=== PATIENT | female | born 1970 | race Caucasian/White ===

== ENCOUNTER → 2016-08-12 | Outpatient (CLI) | payer OTHER ==
[~2016-08-12] MED LIST: ALPR0.25 PO; CARI250T PO; CEPH500C PO; FNTTP50 TD; NRN/600 PO; OXYC-106 PO; PROM25TA PO; ZOLP10TA PO
[2016-08-12 12:49] LABS: ALT/SGPT 19 U/L (12-78); BLOOD UREA NITROGEN 12 mg/dl (7-18); BUN/CREATININE RATIO 12.9 (10-20); CALCIUM 8.7 mg/dl (8.5-10.1); CARBON DIOXIDE 20 mmol/L (21-32); CHLORIDE 110 mmol/L (98-107); GLUCOSE 99 mg/dl (70-99); POTASSIUM 3.9 mmol/L (3.5-5.1); SODIUM 141 mmol/L (136-145)
[2016-08-12 13:03] LABS: ALB/GLOB RATIO 1.3 (0.9-2); ALKALINE PHOSPHATASE 91 U/L (45-117); AST/SGOT 14 U/L (15-37); THYROID STIMULATING HORMONE 0.618 uIu/ml (0.300-4.500)
== END | disposition home or self-care (01) ==
LOC: C.LABPVFM 10:02
PROVIDERS: ATTEND Nurse Practitioner
DX: F41.9 Anxiety disorder, unspecified (principal)

== ENCOUNTER → 2016-12-23 | Outpatient (CLI) | payer OTHER ==
[~2016-12-23] MED LIST changes: +BUSP1TAB46 PO; -CEPH500C PO; +CTP/1 PO; +DRGTP12 TD; +ESCI1TAB9 PO; +FENT25DI10 TD; +GABA-113 PO; +MEPE1TAB PO; +PROM25TA9 PO; +TOPI50TA16 PO
--- NOTE | 2016-12-23 15:23 | DIAGNOSTIC IMAGING REPORT ---
RIGHT PELVIS/UNILATERAL HIP 2-3VIEWS CLINICAL HISTORY: RIGHT HIP PAIN Right pain COMPARISON: None. DISCUSSION: Moderate degenerative change of the right and to lesser extent left hip. No evidence for acetabular protrusion. No abnormal soft tissue calcifications. Mild degenerative sclerosis of the sacroiliac joints. Sacral foramina are symmetric. There is no evidence for soft tissue swelling. IMPRESSION: Moderate degenerative change of the right and to lesser extent left hip. No acute process. Electronically signed by: Ashwin Steve M.D. 12/23/2016 3:21 PM Dictated Date/Time: 12/23/2016 3:21 PM
== END | disposition home or self-care (01) ==
LOC: C.RADPV 14:48
PROVIDERS: ATTEND Nurse Practitioner
DX: M25.551 Pain in right hip (principal)

== ENCOUNTER 2017-04-14 08:26 | Emergency (ER) | payer OTHER ==
[~2017-04-14] VITALS: Ht 168.9 cm; Wt 99.5 kg
[~2017-04-14 08:26] MED LIST changes: -BUSP1TAB46 PO; -CTP/1 PO; -DRGTP12 TD; -ESCI1TAB9 PO; -FENT25DI10 TD; -GABA-113 PO; -MEPE1TAB PO; -PROM25TA9 PO; -TOPI50TA16 PO
[2017-04-14 08:28] VITALS: TEMP 36.4; Ht 168.9 cm; Wt 99.5 kg
[2017-04-14] MEDS ORDERED: DiphenhydrAMINE HCL 50 MG/ML VIAL IV STA (09:02)
[2017-04-14] MEDS ORDERED: DEXAMETHASONE SOD INJ 4 MG/ML VIAL IV STA (09:02)
[2017-04-14] MEDS: METOCLOPRAMIDE HCL INJ 5 MG/ML 2 ML VIAL IV STA ×2 (09:02→09:19)
[2017-04-14] MEDS ORDERED: SODIUM CHLORIDE 0.9% 1000ML 1,000 ML IV STA (09:02)
[2017-04-14] MEDS ORDERED: KETOROLAC TROMETHAMINE 30 MG/ML VIAL IV STA (09:02)
[2017-04-14] MEDS ORDERED: PROMETHAZINE HCL INJ 25 MG in SODIUM CHLORIDE 0.9% 50ML 50 ML IV STA (09:28)
[2017-04-14] MEDS ORDERED: MoRPHine SULFATE 10 MG/ML CARP/VIAL IV STA ×2 (09:56→10:44)
[2017-04-14] MEDS ORDERED: PROM25TA9 PO (10:30)
[2017-04-14] MEDS ORDERED: FENT25DI10 TD (10:30)
[2017-04-14] MEDS ORDERED: GABA-113 PO (10:30)
[2017-04-14] MEDS ORDERED: DRGTP12 TD (10:30)
[2017-04-14] MEDS ORDERED: TOPI50TA16 PO (10:33)
[2017-04-14] MEDS ORDERED: MEPE1TAB PO (10:33)
[2017-04-14] MEDS ORDERED: BUSP1TAB46 PO (10:33)
[2017-04-14] MEDS ORDERED: CTP/1 PO (10:33)
[2017-04-14] MEDS ORDERED: ESCI1TAB9 PO (10:33)
[2017-04-14 11:32] VITALS: BP 112/83; PULSE 67; O2SAT 98
--- NOTE | 2017-04-15 05:47 | EMERGENCY ROOM VISIT NOTE ---
ED Visit Note First contact with patient: 08:44 CHIEF COMPLAINT: I've had a migraine headache for 3 days. HISTORY OF PRESENT ILLNESS: Ms. Norris is a 46 year-old white female who ambulates into the ED accompanied by a female friend complaining of a migraine headache. She reports a gradual onset of a severe migraine headache that started 3 days ago. The pain is constant and it is slowly increasing in severity. This is not the worst headache of the life and is similar to previous migraines. Currently she describes the headache as a throbbing and pressure sensation that started behind the left eye and has gradually moved to throughout her entire head. She rates the pain a 10/10. The pain is nonradiating. She has not identified any aggravating or alleviating factors related to the pain. She reports she has been taking her prescribed Demerol, Percocet and Phenergan without relief of her discomfort. There is been associated light sensitivity, nausea and vomiting. She denies fever, chills, sweats, skin eruptions, skin color changes, recent direct or repetitive trauma to the head, dental trauma/ surgery, upper respiratory tract symptoms, sinus congestion, sore throats, neck pain/stiffness, chest pain, shortness of breath, abdominal pain, extremity weakness/numbness/tingling, visual changes, hearing changes, difficult speaking , difficulty swallowing, difficulty ambulating/coordinating body movements. REVIEW OF SYSTEMS: As noted above in History of Present Illness; all body systems were reviewed with the patient and found to be negative unless noted above otherwise. PAST MEDICAL HISTORY: As previously noted, hypertension, status post hemorrhoidectomy, breast reduction and Achilles tendon repair, anxiety. CURRENT MEDICATIONS: Medications Dose Route/Sig Max Daily Dose Days Date Category Dose Instructions Demerol (Meperidine HCl) 50 Mg Tab 50 Mg PO UD PRN 04/14/17 Reported Topamax (Topiramate) 50 Mg Tab 50 Mg PO DAILY 04/14/17 Reported Catapres (Clonidine Hcl) 0.1 Mg Tab 0.1 Mg PO TID 04/14/17 Reported Buspirone Hcl 7.5 Mg Tab 30 Mg PO DAILY 04/14/17 Reported Lexapro (Escitalopram Oxalate) 10 Mg Tab 10 Mg PO DAILY 04/14/17 Reported Phenergan (Promethazine HCl) 25 Mg Tab 25 Mg PO TID PRN 04/14/17 Reported Neurontin (Gabapentin) 300 Mg Cap 300 Mg PO BID PRN 04/14/17 Reported Fentanyl 12 Mcg Tdsy 1 Patch TD [id number] 04/14/17 Reported PT STATES SHE'S CURRENTLY WEINING OFF PAIN MEDICATIONS. IS ALTERNATING 25MCG & 12MCG PATCHES EVERY 3 DAYS Duragesic (Fentanyl) 25 Mcg/Hr Dis 1 Patch TD [id number] 04/14/17 Reported PT STATES SHE'S CURRENTLY WEINING OFF PAIN MEDICATIONS. IS ALTERNATING 25MCG & 12MCG PATCHES EVERY 3 DAYS Xanax (Alprazolam) 0.25 Mg Tab 0.25 Mg PO UD PRN 07/04/15 Reported Soma (Carisoprodol) 250 Mg Tab 250 Mg PO BID 07/04/15 Reported Ambien (Zolpidem Tartrate) 10 Mg Tab 10 Mg PO HS PRN 12/24/11 Reported Percocet 10MG/325MG (Oxycodone/Acetaminophen) Tab 1 Tab PO BID PRN 04/13/08 Reported ALLERGIES TO MEDICATIONS: Sulfa, Tigan. SOCIAL HISTORY: Patient is not currently employed; she lives there children and feels safe in her home environment; she admits to tobacco use and denies alcohol use. PHYSICAL EXAM: Vital Signs: Date Time Temp Pulse Resp B/P (MAP) Pulse Ox O2 Delivery O2 Flow Rate FiO2 04/14/17 11:32 67 18 112/83 98 04/14/17 10:08 66 18 145/93 99 Room Air 04/14/17 08:28 36.4 92 16 126/80 98 Room Air GENERAL: 46 year-old white female in moderate distress due to pain, afebrile and hemodynamically stable. Found lying in a on the hospital bed with an ice bag on her head and neck. NEUROLOGIC: Awake, alert and oriented to person place and time. Answering questions appropriately and following commands. Cranial nerves II-XII grossly intact. No focal neurologic deficits noted. SKIN: Warm, dry and pink. No rashes, lesions or soft tissue trauma noted. HEENT: Normocephalic, atraumatic. No tenderness over the frontal or maxillary sinuses. PERRLA. EOMI without nystagmus. Sclerae white and conjunctiva is pink. Moderate light sensitivity precluding funduscopic examination. External ears are nontender. Auditory canals are pink and patent. Tympanic membranes were slightly obscured by cerumen but what was seen was pearly padron with normal light reflex. Oral cavity was moist and pink. Airway is patent. Speech was clear. No tonsillar hypertrophy or exudates. Trachea midline. No JVD. BACK: No tenderness over the cervical, thoracic or lumbar vertebrae. No tenderness throughout the paraspinous muscles. No nuchal rigidity or meningismus. Full range of motion of the cervical spine. No CVA tenderness. THORAX: Lungs clear to auscultation and equal bilaterally with no wheezing, crackles, rhonchi or stridor and equal chest wall movements. HEART: Regular rate and rhythm with no murmurs, rubs or gallops. ABDOMEN: Soft and nontender with bowel sounds present in all quadrants; no rigidity, rebound tenderness, organomegaly or guarding. MUSCULOSKELETAL: Moves all extremities well on command and with purpose. No tenderness over the joints. Neurovascular statuses are intact and equal bilaterally. Normal gait. 5/5 muscle strength in all movements of the upper and lower extremities. ED COURSE: Patient is assessed with history and physical examination. Patient's medication list was reviewed. An IV lock was initiated and patient was hydrated with normal saline and initially received 30 mg of Toradol, 10 mg of Decadron, 25 mg of Benadryl and 25 mg of Phenergan. On reassessment she reports no improvement on her pain and subsequently she received 2 IV doses of 6 mg of morphine. Patient was reassessed multiple times during her stay in the emergency department. At one time patient felt she was not being treated appropriately and contacted her neurologist; Dr. Delvalle, for possible intervention to receive narcotics for her treatment. I did have a lengthy conversation with the patient and reports that recent changes in migraine headaches in the emergency department had been implemented and evaluation with nonnarcotic pain medications were appropriate initially. Patient's case was reviewed with Dr. Pavon. Patient was educated about her condition and instructed on her treatment plan; she verbalized understanding and agreement with this plan. CLINICAL IMPRESSION: Migraine headache. DECISION MAKIN-year-old female who presents for evaluation of headache. She is afebrile, well appearing, and hemodynamically stable. She has no signs of a sinus, dental , or ear infection and no evidence of meningismus. She is neurologically intact. I do not suspect a headache to be secondary to a subarachnoid hemorrhage, meningitis, encephalitis, or intracranial mass lesion. DISPOSITION: Patient was discharged to home in stable condition accompanied by by female friends; prior to departure she was reassessed and rated her discomfort 3/10 and subjectively reported she was feeling much better. DISCHARGE INSTRUCTIONS: Rest at home, in a quiet darkened room and allow the medication to work for the pain. Continue to follow up current treatment plan prescribed by your physician for your migraine headaches. See your own doctor in follow-up this week for continued care and treatment. Return to the ED as needed for worsening/uncontrolled headache, any abnormal neurological symptoms, fevers or any new/concerning symptoms.
== END 2017-04-14 11:33 | disposition home or self-care (01) ==
LOC: C.EDB 08:28
DX: G43.909 Migraine, unspecified, not intractable, without status migrainosus (principal); I10 Essential (primary) hypertension; F41.9 Anxiety disorder, unspecified; F17.200 Nicotine dependence, unspecified, uncomplicated

== ENCOUNTER → 2017-09-06 | Outpatient (CLI) | payer OTHER ==
[~2017-09-06] MED LIST changes: +BUSP1TAB46 PO; +CTP/1 PO; +DRGTP12 TD; +ESCI1TAB9 PO; +FENT25DI10 TD; -FNTTP50 TD; +GABA-113 PO; +MEPE1TAB PO; -NRN/600 PO; -PROM25TA PO; +PROM25TA9 PO; +TOPI50TA16 PO
[2017-09-06 18:20] LABS: BLOOD UREA NITROGEN 19 mg/dl (7-18); CALCIUM 8.8 mg/dl (8.5-10.1); CARBON DIOXIDE 22 mmol/L (21-32); CREATININE 0.82 mg/dl (0.60-1.20); GLUCOSE 85 mg/dl (70-99); POTASSIUM 4.3 mmol/L (3.5-5.1); SODIUM 136 mmol/L (136-145)
== END | disposition home or self-care (01) ==
LOC: C.LABPVFM 12:14
PROVIDERS: ATTEND Nurse Practitioner
DX: G43.009 Migraine without aura, not intractable, without status migrainosus (principal)

== ENCOUNTER → 2017-11-25 | Outpatient (CLI) | payer OTHER ==
[~2017-11-25] MED LIST changes: +GADAVIST IV PRN
--- NOTE | 2017-11-25 13:34 | DIAGNOSTIC IMAGING REPORT ---
LUMBAR SPINE COMBINATION CLINICAL HISTORY: 47 years-old Female presenting with M54.16 Lumbar [id number], chronic lower back pain radiating to both legs with right lower leg numbness. TECHNIQUE: Multisequence, multiplanar MR imaging of the lumbar spine was performed before and after the administration of intravenous contrast. IV contrast: 10 mL of Gadavist. COMPARISON: 04/16/2016. FINDINGS: Localizer images: Unremarkable. Fat-containing lesions in L1 and L4 consistent with benign hemangiomas. 5 mm of grade 1 retrolisthesis of L4 on L5. Otherwise vertebral bodies maintain normal and height and alignment. A mixture of fatty and edematous endplate changes at L5-S1 noted (Modic type I and II). There is no fluid in the L5-S1 intervertebral disc. Mild enhancement also noted at the endplates of L5-S1. This is felt to be most likely degenerative in etiology. Similar though less significant findings evident at the endplates of L4-5. Intervertebral disc desiccation noted at L4-5 and L5-S1 with mild height loss. L1-2 through L3-4: No spinal canal or neural foraminal narrowing. L4-5: Anterolisthesis as well as facet arthropathy results in moderate right and mild left neural foraminal narrowing. Only mild effacement of the ventral thecal sac is evident at this level. L5-S1: Minimal disc bulge without significant spinal canal narrowing. Facet arthropathy results in mild bilateral neural foraminal narrowing. The spinal cord is in good position at the inferior endplate of L1. Cauda equina normal morphology. Paraspinal musculature normal. Remaining soft tissues normal. No abnormal enhancement of the spinal cord or cauda equina. IMPRESSION: 1. Stable appearance of mild degenerative changes most significant at L4-5, which is enlarged part due to grade 1 anterolisthesis of L4 on L5. 2. Neural foraminal narrowing primarily at L4-5, right greater than left. These findings are also unchanged. Electronically signed by: Justin Herron M.D. 11/25/2017 1:33 PM Dictated Date/Time: 11/25/2017 1:23 PM
== END | disposition home or self-care (01) ==
LOC: C.MRIBC 12:14
PROVIDERS: ATTEND Psychiatry & Neurology Neurology
DX: M54.16 Radiculopathy, lumbar region (principal)

== ENCOUNTER → 2018-02-27 | Outpatient (CLI) | payer OTHER ==
[~2018-02-27] MED LIST changes: -CARI250T PO; +CARI350T28 PO; -FENT25DI10 TD; -GADAVIST IV PRN; -OXYC-106 PO; +OXYC-594 PO
== END | disposition home or self-care (01) ==
LOC: C.LABPVFM 15:55
PROVIDERS: ATTEND Nurse Practitioner
DX: M25.551 Pain in right hip (principal)

== ENCOUNTER → 2018-02-27 | Outpatient (CLI) | payer OTHER ==
--- NOTE | 2018-02-27 17:21 | DIAGNOSTIC IMAGING REPORT ---
R PELVIS/UNILATERAL HIP 2-3VIEWS CLINICAL HISTORY: Right hip pain. COMPARISON: Pelvis and right hip radiographs December 23, 2016. FINDINGS: Moderate joint space narrowing and osteophytosis of the right hip has slightly progressed since exam of December 23, 2016. There is no fracture or evidence for avascular necrosis. There is mild to moderate osteoarthritis of the left hip. There is mild to moderate osteoarthritis of both sacroiliac joints as well as degenerative changes at the symphysis pubis. IMPRESSION: 1. No acute fracture. 2. Moderate right hip osteoarthritis which has mildly progressed since exam of December 23, 2016. 3. Mild to moderate left hip osteoarthritis. Electronically signed by: Dylan Brown M.D. 02/27/2018 5:20 PM Dictated Date/Time: 02/27/2018 5:18 PM
== END | disposition home or self-care (01) ==
LOC: C.RADPV 15:59
PROVIDERS: ATTEND Nurse Practitioner
DX: M16.0 Bilateral primary osteoarthritis of hip (principal)

== ENCOUNTER 2023-07-26 12:28 | Inpatient (IN) ==
[2023-07-26] MEDS ORDERED: ACETAMINOPHEN 1,000 MG/100 ML VIAL IV STA (13:06)
[2023-07-26] MEDS ORDERED: CEFEPIME 2,000 MG/20 ML VIAL IV STA (13:06)
[2023-07-26] MEDS ORDERED: ONDANSETRON INJ 2 MG/ML 2 ML VIAL IV STA (13:06)
[2023-07-26] MEDS ORDERED: MoRPHine SULFATE 4 MG/ML 1 ML CARP\\VIAL IV STA (13:06)
[2023-07-26] MEDS ORDERED: SODIUM CHLORIDE 0.9% 1,000 ML IV SCH (13:15)
--- NOTE | 2023-07-26 13:20 | Emergency Department Note ---
Impression & Plan Pyelonephritis, Ureteral stone, Hydronephrosis, RUQ abdominal pain, Fever, Elevated troponin, Hypokalemia, Hypomagnesemia, Hyponatremia ED Provider Note NAME: CHARLES FERREIRA AGE: 53 SEX: F : 1970 ARRIVES VIA: Ambulance INFORMANT: [Patient] ED PROVIDER(S): [Jewel Pavon MD] CHIEF COMPLAINT: Urinary symptoms HISTORY OF PRESENT ILLNESS: The patient is a 53-year-old female presents with 3 months of urinary complaints that she has been dealing with at home with Azo. She is not on antibiotics. In the last week she has developed some right upper quadrant abdominal pain that has worsened just about every day. She also has developed bilateral ear pain and fullness. 3 days ago, she began feeling a lot worse and noted a fever. There has been no cough or cold, no shortness of breath. The patient is concerned for a kidney infection. She states she also has had kidney stones before. PMHx/PSHx/Social Hx: See Below PHYSICAL EXAM: GENERAL: Patient is in no acute distress. HEENT: No acute trauma, normocephalic atraumatic, mucous membranes dry, no nasal congestion. TMs clear bilaterally. NECK: No stridor, no adenopathy, no meningismus, trachea is midline. LUNGS: Clear to auscultation bilaterally, no wheeze, no rhonchi, breath sounds equal. HEART: Without murmurs gallops or rubs, regular rate and rhythm. ABDOMEN: Soft, tender in the right upper abdomen, no distention. EXTREMITIES: No cyanosis, full range of motion of all the joints without pain or difficulty. NEUROLOGIC: Oriented x 3, no acute motor or sensory deficits, no focal weakness. SKIN: No jaundice, no diaphoresis. DIFFERENTIAL DIAGNOSIS: Bacteremia or sepsis, pyelonephritis, UTI, hydronephrosis and ureteral obstruction, dehydration, renal failure, among others. EMERGENCY DEPARTMENT PROCEDURES: MEDICAL DECISION MAKING: There is no leukocytosis or concerning anemia. There is a normal platelet count. Sodium and potassium were both low. No renal failure. Lactic acid level was not elevated making severe sepsis less likely. Magnesium was somewhat low at 1.6. There were some subtle liver enzyme elevations however, the bilirubin was normal. Procalcitonin level was elevated consistent with bacterial infection. testing returned negative. Urinalysis does suggest infection. Chest film does not show pneumonia or CHF. COVID, influenza and RSV test were negative. Abdominal and pelvis CT shows hydronephrosis on the right with a distal right UV junction stone responsible for the hydronephrosis. ECG showed a sinus rhythm, no ischemia. Cardiac enzyme testing x 1 was slightly elevated. This troponin elevation is likely secondary to mismatch from her underlying illness rather than cardiac injury. Of note, the patient has no chest pain. The patient was aggressively managed given her findings. She was given IV saline, 1.5 L. She received IV potassium, IV Zofran, IV morphine. She became anxious here and received IV Ativan. She received IV magnesium. She was given IV cefepime as antibiotic coverage. The patient is doing well, she is aware of her findings. I did speak with urology. The patient will transferred to the operating room for decompression of the hydronephrosis. Case management has been involved. The patient will require a hospital stay and further care/antibiotic therapy. The on-call hospitalist was consulted. Prior/Outside records/notes reviewed: Family practice note from 06/08/2023 discussing her diagnosis of COVID-19 and the plan moving forward. ECG per my interpretation: Indication was possible sepsis. The ECG shows a normal sinus rhythm with a rate of 95. There is no ST elevation, no PVCs. There is some nonspecific ST change. The QTc is 447. Continuous Cardiac Monitoring per my interpretation: An order was placed for continuous cardiac monitoring. The monitor shows a rate of 112 with sinus tachycardia. Imaging/x-ray results per my interpretation: Chest x-ray did not show mediastinal widening, pneumonia or pneumothorax. Chronic Medical/Social conditions affecting care: Care/Management discussed with: Urology-Dr. Romero. Case management, the on-call hospitalist. Level of care consideration(s): After review of the information above and other included data: --I believe the patient requires escalation of care to admission Critical Care Note: I have personally spent 46 minutes of critical care time in the direct management of this patient. This includes bedside care, interpretation of diagnostic studies, and testing, discussion with consultants, patient, and family members, and other required patient management activities. This 46 minutes is in excess of all separately billable procedures. DISPOSITION: Admission with urology consult. Past Med/Surg History Medical History Hx of migraines History of anesthesia reaction "sat up and started talking during her last colonoscopy 10 years ago" Anxiety Presence of pessary History of COVID-19 2021, mild symptoms, no current symptoms Prolapse of female pelvic organs Recurrent UTI NO CURRENT ISSUES HTN (hypertension) Avascular necrosis Right hip, replaced in 2019 Asthma (11/02/12) no inhalers-"only happens with a panic attack" Cervical radiculopathy at C5 Fibromyalgia GERD (gastroesophageal reflux disease) Hyperlipidemia Spinal stenosis Degenerative disc disease Sciatica Herniated disc "numerous" Surgical History S/P endometrial ablation tubal done simultaneously per records History of surgery denervation of various spinal nerves. S/P epidural steroid injection Status post total hip replacement, right 2019 History of Achilles tendon repair RIGHT History of surgery D&E History of tonsillectomy and adenoidectomy History of bilateral breast reduction surgery History of esophagogastroduodenoscopy (EGD) History of colonoscopy History of hemorrhoidectomy Family History Father Prostate cancer Bladder cancer Clotting disorder Hypertension Mother Lung cancer Denies family history of Ovarian cancer Diabetes Myocardial infarction Breast cancer Colorectal cancer Uterine cancer Social History Smoking Status: Current every day smoker Tobacco Type: E-cigarettes / Vaping Age Started Using Tobacco: 12; Cigarettes Per Day: vapes daily; has a rare cigarette; Second Hand Exposure: Yes (hx); Do You Dip or Chew Tobacco: No; Hx Alcohol Use: Yes Alcohol type: wine Hx Substance Use: Yes Last Used Substance Other:: uses daughter's medical marijuana [id number] weeks ago Substance Use Type Other:: advised Preferred Language: Vietnamese Communication Ability: Effective 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 Beliefs That Will Affect Care: None marital status: Legally Current Living Situation: Family current occupational status: unemployed How many Children do You have: 3 Other Information That Helps Us Care for You: No Feels Safe at Home: Yes Safety Concerns: Feels Safe At This Time Childhood Exposure to Second-Hand Smoke: Yes Diet: regular caffeine: Yes Dental Care, Regularly: No Physical Activity Frequency: Daily Seatbelt Use: always Sunscreen Use: Yes Assistive Devices: Glasses Allergies Allergies Allergy/AdvReac Type Severity Reaction Status Date / Time butorphanol Allergy Severe Hypertensio Verified 07/26/23 16:04 n amitriptyline Allergy Unknown . Verified 07/26/23 16:04 clarithromycin Allergy Unknown Gastrointestinal Verified 07/26/23 16:04 Upset Sulfa (Sulfonamide Allergy Unknown . Verified 07/26/23 16:04 Antibiotics) trimethobenzamide Allergy Unknown Rash Verified 07/26/23 16:04 duloxetine [From Cymbalta] Allergy Migraine Verified 07/26/23 16:04 rizatriptan [From Maxalt] Allergy Chest Verified 07/26/23 16:04 tightness nitrofurantoin AdvReac Mild GI upset Verified 07/26/23 16:04 [From Macrobid] and abdominal pain Home Meds Home Medications Medication Instructions Recorded Confirmed acetaminophen 500 mg tablet 1,000 mg PO QAM PRN Pain 03/31/20 07/26/23 (Tylenol Extra Strength) escitalopram oxalate 20 mg tablet 10 mg PO QAM 04/20/23 07/26/23 sennosides 25 mg tablet 25 mg PO HS 04/20/23 07/26/23 sennosides 8.6 mg-docusate sodium 1 tab-cap PO HS 04/20/23 07/26/23 50 mg capsule topiramate 100 mg tablet 100 mg PO QAM 04/20/23 07/26/23 gabapentin 600 mg tablet 600 mg PO BID 07/26/23 07/26/23 Previous Rx's Medication Instructions Recorded naloxone 4 mg/actuation nasal spray 4 mg intranasal ONCE PRN opioid 12/04/19 overdose #2 ea meperidine 50 mg/5 mL oral solution 100 mg (10 mL) PO TID PRN 04/18/23 migraines #250 mL promethazine 25 mg tablet 25 mg PO BID PRN nausea and 04/26/23 vomiting 30 days #60 tabs ondansetron 4 mg disintegrating 4 mg PO Q8H PRN nausea and 06/10/23 tablet vomiting #20 tabs alprazolam 0.5 mg tablet 0.5 mg PO .COMPLEX PRN anxiety #60 06/30/23 tabs carisoprodol 350 mg tablet (Soma) 350 mg PO QID PRN Muscle Spasm #90 06/30/23 tabs oxycodone-acetaminophen 10 mg-325 1 tab PO Q6H PRN pain #75 tabs 06/30/23 mg tablet phentermine 37.5 mg tablet 37.5 mg PO DAILY #30 tabs 07/05/23 Results & Data (ED) Vital Signs Vital Signs - 24 hr 07/26/23 12:28 07/26/23 15:29 07/26/23 15:29 Temperature 39.2 C H Temperature Source Oral Pulse Rate 114 H 97 H Pulse Rate [Apical] 96 H Respiratory Rate 20 18 16 Respiratory Effort / Characteristics Non-Labored Non-Labored Respiratory Depth Normal Normal Respiratory Pattern Regular Blood Pressure 139/84 Blood Pressure [Right Arm] 132/86 Blood Pressure Mean 102 Blood Pressure Mean [Right Arm] 101 Blood Pressure Position [Right Arm] Lying Pulse Oximetry 95 96 95 Oxygen Delivery Method Room Air Room Air Room Air Sepsis Recent Fever Within 48 Hours Yes Sepsis New/Unexplained Change in Mental Status No Sepsis Action Taken by Nursing Physician Notified Home Medications Current Medication List: was personally reviewed by me Laboratory Data Attestation: I reviewed the patient's lab results. 07/26/23 12:50 07/26/23 12:50 Lab Results 07/26/23 07/26/23 07/26/23 Range/Units 12:45 12:50 13:35 WBC 8.89 (4.8-10.8) K/ul RBC 3.74 L (4.20-5.40) M/uL Hgb 11.8 L (12.0-16.0) g/dl Hct 34.9 L (37.0-47.0) % MCV 93.3 (80.0-100.0) fL MCH 31.6 (25.0-34.0) pg MCHC 33.8 (32.0-36.0) g/dL RDW Std Deviation 41.4 (36.4-46.3) fL RDW Coeff of [place] 12.0 (11.5-14.5) % Plt Count 152 (130-400) K/uL MPV 9.4 (9.4-12.4) fL Immature Gran % (Auto) 0.7 % Neut % (Auto) 88.5 % Lymph % (Auto) 3.8 % [place] % (Auto) 6.4 % Eos % (Auto) 0.2 % Baso % (Auto) 0.4 % Neut # (Auto) 7.86 H (1.40-6.50) K/uL Lymph # (Auto) 0.34 L (1.20-3.40) K/uL [place] # (Auto) 0.57 (0.11-0.59) K/uL Eos # (Auto) 0.02 (0.00-0.50) K/uL Baso # (Auto) 0.04 (0.00-0.20) K/uL Immature Gran # (Auto) 0.06 (0.01-0.20) K/uL Dohle Bodies 1+ Polychromasia 1+ Sodium 129 L (136-145) mmol/L Potassium 2.9 L (3.5-5.1) mmol/L Chloride 97 L (98-107) mmol/L Carbon Dioxide 23 (21-32) mmol/L Anion Gap 9 (3-11) BUN 17 (6-23) mg/dl Creatinine 0.79 (0.6-1.2) mg/dl Est Cr Clr Drug Dosing 78.6 ml/min Est GFR ( Amer) 99.1 ml/min Est GFR (Non-Af Amer) 85.5 ml/min BUN/Creatinine Ratio 21.5 H (10-20) Glucose 115 H (70-99(Fasting)) mg/dl Lactate 0.4 (0.4-2.0) mmol/L Calcium 8.9 (8.6-10.3) mg/dl Magnesium 1.6 L (1.7-2.4) mg/dl Total Bilirubin 0.9 (0.2-1.0) mg/dl Direct Bilirubin 0.4 H (0-0.2) mg/dl AST 40 H (13-39) U/L ALT 31 (7-52) U/L Alkaline Phosphatase 177 H (34-104) U/L Troponin I High Sens 116.8 H* (0-14) pg/ml Total Protein 7.0 (6.0-8.3) gm/dl Albumin 3.4 (3.4-5.0) gm/dl Procalcitonin 1.99 H (0-0.5) ng/ml HCG, Qual Negative (Negative) Urine Color Dark Yellow Urine Appearance Cloudy A (Clear) Urine pH 6.5 (4.5-7.5) Ur Specific [place] 1.014 (1.000-1.030) Urine Protein 2+ H (Negative) Urine Glucose (UA) Negative (Negative) Urine Ketones Negative (Negative) Urine Blood 2+ H (Negative) Urine Nitrite Positive A (Negative) Urine Bilirubin Negative (Negative) Urine Urobilinogen Positive H (Negative) Ur Leukocyte Esterase Trace H (Negative) Urine WBC (Auto) 10-30 H (0-5) /hpf Urine RBC (Auto) 5-10 H (0-4) /hpf U Hyaline Cast (Auto) 1-5 (0-5) /lpf U Epithel Cells (Auto) >30 H (0-5) /lpf Urine Bacteria (Auto) 4+ H (Negative) SARS-CoV-2 (PCR) (Negative) Influenza Type A (PCR) (Neg) Influenza Type B (PCR) (Neg) RSV (RT-PCR) (Neg) 07/26/23 07/26/23 Range/Units 13:58 15:35 WBC (4.8-10.8) K/ul RBC (4.20-5.40) M/uL Hgb (12.0-16.0) g/dl Hct (37.0-47.0) % MCV (80.0-100.0) fL MCH (25.0-34.0) pg MCHC (32.0-36.0) g/dL RDW Std Deviation (36.4-46.3) fL RDW Coeff of [place] (11.5-14.5) % Plt Count (130-400) K/uL MPV (9.4-12.4) fL Immature Gran % (Auto) % Neut % (Auto) % Lymph % (Auto) % [place] % (Auto) % Eos % (Auto) % Baso % (Auto) % Neut # (Auto) (1.40-6.50) K/uL Lymph # (Auto) (1.20-3.40) K/uL [place] # (Auto) (0.11-0.59) K/uL Eos # (Auto) (0.00-0.50) K/uL Baso # (Auto) (0.00-0.20) K/uL Immature Gran # (Auto) (0.01-0.20) K/uL Dohle Bodies Polychromasia Sodium (136-145) mmol/L Potassium (3.5-5.1) mmol/L Chloride (98-107) mmol/L Carbon Dioxide (21-32) mmol/L Anion Gap (3-11) BUN (6-23) mg/dl Creatinine (0.6-1.2) mg/dl Est Cr Clr Drug Dosing ml/min Est GFR ( Amer) ml/min Est GFR (Non-Af Amer) ml/min BUN/Creatinine Ratio (10-20) Glucose (70-99(Fasting)) mg/dl Lactate (0.4-2.0) mmol/L Calcium (8.6-10.3) mg/dl Magnesium (1.7-2.4) mg/dl Total Bilirubin (0.2-1.0) mg/dl Direct Bilirubin (0-0.2) mg/dl AST (13-39) U/L ALT (7-52) U/L Alkaline Phosphatase (34-104) U/L Troponin I High Sens 16.9 H D (0-14) pg/ml Total Protein (6.0-8.3) gm/dl Albumin (3.4-5.0) gm/dl Procalcitonin (0-0.5) ng/ml HCG, Qual (Negative) Urine Color Urine Appearance (Clear) Urine pH (4.5-7.5) Ur Specific [place] (1.000-1.030) Urine Protein (Negative) Urine Glucose (UA) (Negative) Urine Ketones (Negative) Urine Blood (Negative) Urine Nitrite (Negative) Urine Bilirubin (Negative) Urine Urobilinogen (Negative) Ur Leukocyte Esterase (Negative) Urine WBC (Auto) (0-5) /hpf Urine RBC (Auto) (0-4) /hpf U Hyaline Cast (Auto) (0-5) /lpf U Epithel Cells (Auto) (0-5) /lpf Urine Bacteria (Auto) (Negative) SARS-CoV-2 (PCR) NEGATIVE (Negative) Influenza Type A (PCR) Negative (Neg) Influenza Type B (PCR) Negative (Neg) RSV (RT-PCR) Negative (Neg) Administered Medications Acetaminophen (Acetaminophen 325 Mg Tab) 650 mg PO Q4H PRN PRN Reason: Pain or Fever Stop: 08/25/23 18:18 Last Admin: 07/26/23 19:44 Dose: 650 mg Documented By: CR Gabapentin (Gabapentin 600 Mg Tab) 600 mg PO BID [facility] Stop: 08/25/23 20:59 Last Admin: 07/26/23 19:55 Dose: 600 mg Documented By: CHRISSY Lactated Ringer's (Lr) 1,000 mls @ 125 mls/hr IV .Q8H CAIO Stop: 08/25/23 18:44 Last Admin: 07/26/23 18:47 Dose: 125 mls/hr Documented By: JEAN-CLAUDE Magnesium Sulfate/Dextrose (Magnesium Sulfate / D5w) 1 gm in 100 mls @ 50 mls/hr IV ONE ONE Stop: 07/26/23 20:41 Last Admin: 07/26/23 19:20 Dose: 50 mls/hr Documented By: OMarion Ceftriaxone Sodium 2,000 mg/ (Dextrose) 50 mls @ 100 mls/hr IV Q24H [facility]; Protocol Stop: 08/05/23 18:59 Last Infusion: 07/26/23 19:47 Dose: 0 mls/hr Documented By: Admin: 07/26/23 19:28 Dose: 100 mls/hr Documented By: CHRISSY Sennosides (Senna 8.6 Mg Tab) 25.8 mg PO Q2D@2100 [facility] Stop: 08/25/23 20:59 Last Admin: 07/26/23 19:56 Dose: 25.8 mg Documented By: CHRISSY Discontinued Medications Diatrizoate Meglumine (Diatrizoate Meglumine 30% 100ml Vial) 10 ml INSTIL ONCE ONE Stop: 07/26/23 17:31 Last Admin: 07/26/23 17:05 Dose: 10 ml Documented By: RY Sodium Chloride (Nss) 1,000 mls @ 999 mls/hr IV .Q1H1M CAIO Stop: 07/26/23 14:15 Last Infusion: 07/26/23 15:00 Dose: Infused Documented By: Admin: 07/26/23 13:19 Dose: 999 mls/hr Documented By: ELOISA Cefepime HCl (Maxipime) 2,000 mg in 20 mls @ 5 mls/min IV NOW STA; Protocol Stop: 07/26/23 13:09 Last Admin: 07/26/23 13:37 Dose: 5 mls/min Documented By: ELOISA Acetaminophen (Ofirmev) 1,000 mg in 100 mls @ 400 mls/hr IV NOW STA Stop: 07/26/23 13:20 Last Infusion: 07/26/23 13:51 Dose: Infused Documented By: Admin: 07/26/23 13:20 Dose: 400 mls/hr Documented By: ELOISA Potassium Chloride (K Terrell / Wtr) 10 meq in 100 mls @ 100 mls/hr IV ONE ONE Stop: 07/26/23 14:57 Last Infusion: 07/26/23 16:37 Dose: Infused Documented By: Infusion: 07/26/23 15:01 Dose: 75 mls/hr Documented By: Admin: 07/26/23 15:00 Dose: 100 mls/hr Documented By: ELOISA Magnesium Sulfate/Dextrose (Magnesium Sulfate / D5w) 1 gm in 100 mls @ 100 mls/hr IV NOW STA Stop: 07/26/23 15:09 Last Infusion: 07/26/23 18:48 Dose: Infused Documented By: JEAN-CLAUDE Admin: 07/26/23 15:00 Dose: 100 mls/hr Documented By: ELOISA Sodium Chloride (Nss) 500 mls @ 999 mls/hr IV .Q31M ONE Stop: 07/26/23 14:41 Last Infusion: 07/26/23 15:44 Dose: Infused Documented By: Admin: 07/26/23 15:00 Dose: 999 mls/hr Documented By: ELOISA Potassium Chloride (K Terrell / Wtr) 10 meq in 100 mls @ 100 mls/hr IV Q1H CAIO Stop: 07/26/23 17:59 Last Admin: 07/26/23 18:45 Dose: Not Given Documented By: Admin: 07/26/23 18:45 Dose: Not Given Documented By: JEAN-CLAUDE Lactated Ringer's (Lr) 1,000 mls @ 15 mls/hr IV .Q24H CAIO Stop: 08/25/23 15:59 Last Infusion: 07/26/23 19:07 Dose: Infused Documented By: JEAN-CLAUDE Admin: 07/26/23 16:36 Dose: 15 mls/hr Documented By: DENISSE Lorazepam (Lorazepam 1 Mg/1 Ml Syr Ed Inj Use) 1 mg IV ONE STA Stop: 07/26/23 15:17 Last Admin: 07/26/23 15:47 Dose: 1 mg Documented By: DEISY Morphine Sulfate (Morphine Sulfate 4 Mg/Ml 1 Ml Carp\\Vial) 4 mg IV NOW STA Stop: 07/26/23 13:07 Last Admin: 07/26/23 13:19 Dose: 4 mg Documented By: ELOISA Ondansetron HCl (Ondansetron Inj 2 Mg/Ml 2 Ml Vial) 4 mg IV NOW STA Stop: 07/26/23 13:07 Last Admin: 07/26/23 13:19 Dose: 4 mg Documented By: ELOISA Imaging Data Radiologist's Impression: Abdomen/Pelvis CT 07/26/23 13:06 CT abd pelvis wo con CLINICAL HISTORY: uti, poss obstruc TECHNIQUE: Helical axial images of the abdomen and pelvis were obtained. Automated dose lowering techniques and/or adjustment according to patient size were utilized for this exam. This exam was performed without intravenous contrast. CT DOSE: 1148.26 mGy.cm COMPARISON: Comparison is made to CT abdomen pelvis 05/25/2019 FINDINGS: Lower chest: Bibasilar atelectasis versus scarring is seen. Liver: Multiple renal cysts are seen. Gallbladder and biliary tree: No calcified gallstones. Normal caliber wall. No intra- or extrahepatic biliary ductal dilation. Pancreas: Unremarkable, no focal lesions. Spleen: Splenule is incidentally noted. Adrenals: Unremarkable. Kidneys and ureters: Right UVJ stone measures 4 mm with associated hydronephrosis and hydroureter. Additional nonobstructive stones are seen. Bladder: Unremarkable. Reproductive organs: Unremarkable. Bowel: The appendix is normal. Lymph nodes Retroperitoneal: Subcentimeter lymph nodes are noted. Pelvic: Unremarkable. Mesenteric: Unremarkable. Peritoneum: Normal. Vessels: Atherosclerotic calcifications are seen. Abdominal wall: Right fat-containing inguinal hernia. Bones: Degenerative changes in the visualized spine. Right hip total arthroplasty is seen. IMPRESSION: Right obstructive UVJ stone with associated hydronephrosis and hydroureter. Otherwise no acute abnormalities. ACT 112: Negative or not required by law. Electronically signed by: Doron Azevedo M.D. 07/26/2023 2:31 PM Chest X-Ray 07/26/23 13:06 XR chest 1V portable HISTORY: Sepsis COMPARISON: Chest 07/08/2019. FINDINGS: The lungs are clear. Cardiac silhouette is normal in size. No pleural effusions. No pneumothorax. IMPRESSION: No acute process. ACT 112: Negative or not required by law. Electronically signed by: Wallace Hahn M.D. 07/26/2023 2:16 PM Retrograde Pyelogram 07/26/23 15:45 FL retrograde includes kub CLINICAL HISTORY: CYSTO STENTright-sided ureteral stent placement COMPARISON STUDY: CT 07/26/2023 FLUOROSCOPY TIME: 12.4 seconds FLUOROSCOPY IMAGES: 1 EXPOSURE DOSE: 2.43 mGy FINDINGS: The proximal portion of a right ureteral stent is in satisfactory positioning. No significant hydronephrosis. The distal portion of the stent was not imaged. IMPRESSION: Fluoroscopic assistance as above. ACT 112: Negative or not required by law. Electronically signed by: Alden Basilio M.D. 07/26/2023 5:21 PM Discharge Plan Visit Data Chief Complaint: Urinary Symptoms ED Provider: Jewel Pavon Discharge Problem: Pyelonephritis, Ureteral stone, Hydronephrosis, RUQ abdominal pain, Fever, Elevated troponin, Hypokalemia, Hypomagnesemia, Hyponatremia Patient Disposition: Admitted As Inpatient Condition: Serious Discharge Instructions Interventions: ED Discharge Assessment Last Done: 07/26/23 16:21 Discharge Problem: Hydronephrosis Qualifiers: Hydronephrosis type: with renal calculous obstruction Qualified Code(s): N13.2 - Hydronephrosis with renal and ureteral calculous obstruction Fever Qualifiers: Fever type: unspecified Qualified Code(s): R50.9 - Fever, unspecified
[2023-07-26 13:34] LABS: Hematocrit (blood only) 34.9 % (37.0-47.0); Hemoglobin 11.8 g/dl (12.0-16.0); Mean Corpuscular Hemoglobin 31.6 pg (25.0-34.0); Mean Corpuscular Hgb Conc 33.8 g/dL (32.0-36.0); Mean Corpuscular Volume 93.3 fL (80.0-100.0); Mean Platelet Volume 9.4 fL (9.4-12.4); Platelet Count 152 K/uL (130-400); RDW Standard Deviation 41.4 fL (36.4-46.3); Red Blood Count 3.74 M/uL (4.20-5.40); White Blood Count 8.89 K/ul (4.8-10.8)
[2023-07-26 13:41] LABS: Appearance Urine Cloudy (Clear); Bacteria Urine Automated 4+ (Negative); Bilirubin Urine Negative (Negative); Blood Urine 2+ (Negative); Color Urine Dark Yellow; Epithelial Cell Urine Auto >30 /lpf (0-5); Glucose Urine UA Negative (Negative); Ketones Urine Negative (Negative); Leukocyte Esterase Urine Trace (Negative); Nitrite Urine Positive (Negative); Protein Urine 2+ (Negative); Specific Gravity Urine 1.014 (1.000-1.030); Urobilinogen Urine Positive (Negative); pH Urine 6.5 (4.5-7.5)
[2023-07-26 13:48] LABS: Albumin Level 3.4 gm/dl (3.4-5.0); BUN Creatinine Ratio 21.5 (10-20); Bilirubin Direct 0.4 mg/dl (0-0.2); Bilirubin,Total 0.9 mg/dl (0.2-1.0); Calcium 8.9 mg/dl (8.6-10.3); Creatinine Clr Calc Pharmacy 78.6 ml/min; Est GFR (African American) 99.1 ml/min; Est GFR (Non-African American) 85.5 ml/min; Magnesium 1.6 mg/dl (1.7-2.4); Potassium 2.9 mmol/L (3.5-5.1)
[2023-07-26 13:56] LABS: Basophils # (auto) 0.04 K/uL (0.00-0.20); Basophils % (auto) 0.4 %; Dohle Bodies 1+; Eosinophils # (auto) 0.02 K/uL (0.00-0.50); Eosinophils % (auto) 0.2 %; Immature Granulocytes # (auto) 0.06 K/uL (0.01-0.20); Immature Granulocytes % (auto) 0.7 %; Lymphocytes # (auto) 0.34 K/uL (1.20-3.40); Lymphocytes % (auto) 3.8 %; Monocytes # (auto) 0.57 K/uL (0.11-0.59); Monocytes % (auto) 6.4 %; Neutrophils # (auto) 7.86 K/uL (1.40-6.50); Neutrophils % (auto) 88.5 %; Polychromasia 1+; Troponin I High Sensitivity 116.8 pg/ml (0-14)
[2023-07-26] MEDS ORDERED: POTASSIUM CHLORIDE / WTR 10 MEQ/100 ML PLCT IV ONE (13:58)
[2023-07-26] MEDS ORDERED: MAGNESIUM SULFATE / D5W 1 GM/100 ML BAG IV STA (14:10)
[2023-07-26] MEDS ORDERED: SODIUM CHLORIDE 0.9% 500 ML IV ONE (14:11)
--- NOTE | 2023-07-26 14:17 | XRay Report ---
XR chest 1V portable HISTORY: Sepsis COMPARISON: Chest 07/08/2019. FINDINGS: The lungs are clear. Cardiac silhouette is normal in size. No pleural effusions. No pneumot horax. IMPRESSION: No acute process. ACT 112: Negative or not required by law. Electronically signed by: Wallace Hahn M.D. 07/26/2023 2:16 PM
--- NOTE | 2023-07-26 14:32 | CT Scan Report ---
CT abd pelvis wo con CLINICAL HISTORY: uti, poss obstruc TECHNIQUE: Helical axial images of the abdomen and pelvis were obtained. Automated dose lowering tech niques and/or adjustment according to patient size were utilized for this exam. This exam was perfor med without intravenous contrast. CT DOSE: 1148.26 mGy.cm COMPARISON: Comparison is made to CT abdomen pelvis 05/25/2019 FINDINGS: Lower chest: Bibasilar atelectasis versus scarring is seen. Liver: Multiple renal cysts are seen. Gallbladder and biliary tree: No calcified gallstones. Normal caliber wall. No intra- or extrahepatic biliary ductal dilation. Pancreas: Unremarkable, no focal lesions. Spleen: Splenule is incidentally noted. Adrenals: Unremarkable. Kidneys and ureters: Right UVJ stone measures 4 mm with associated hydronephrosis and hydroureter. Ad ditional nonobstructive stones are seen. Bladder: Unremarkable. Reproductive organs: Unremarkable. Bowel: The appendix is normal. Lymph nodes Retroperitoneal: Subcentimeter lymph nodes are noted. Pelvic: Unremarkable. Mesenteric: Unremarkable. Peritoneum: Normal. Vessels: Atherosclerotic calcifications are seen. Abdominal wall: Right fat-containing inguinal hernia. Bones: Degenerative changes in the visualized spine. Right hip total arthroplasty is seen. IMPRESSION: Right obstructive UVJ stone with associated hydronephrosis and hydroureter. Otherwise no acute abnorm alities. ACT 112: Negative or not required by law. Electronically signed by: Doron Azevedo M.D. 07/26/2023 2:31 PM
[2023-07-26 15:00] LABS: Influenza A virus by PCR Negative (Neg); Influenza B virus by PCR Negative (Neg); RSV by PCR Negative (Neg); SARS CoV2 RNA(COVID-19) Ceph NEGATIVE (Negative)
[2023-07-26] MEDS ORDERED: LORazepam 1 MG/1 ML SYR ED Inj Use IV STA (15:16)
[2023-07-26] MEDS ORDERED: ATROPINE SULFATE 0.1 MG/ML 10ML SYR IV PRN (15:34)
[2023-07-26] MEDS ORDERED: ePHEDrine sulfate 50 MG/ML AMP IV PRN (15:34)
[2023-07-26] MEDS ORDERED: ONDANSETRON INJ 2 MG/ML 2 ML VIAL IV PRN (15:34)
[2023-07-26] MEDS ORDERED: fentaNYL citrate PF 100 MCG/2 ML VIAL IV PRN (15:34)
--- NOTE | 2023-07-26 15:38 | Anesthesiology Consultation ---
Date of Service July 26, 2023 Assessment & Plan (1) Encounter for pre-operative examination: Chart Review Chart Review: Acceptable Risk for Surgery and Patient NOT seen in Pre Admission Testing Consults Requested none History Surgery Operation Date: 07/26/23 09:15 Proposed Procedures p Cystoscopy Right Stent Placement - Yoel Romero MD Height/Weight Height: 5 ft 3 in Weight: 72.5 kg Allergies Allergy/AdvReac Type Severity Reaction Status Date / Time butorphanol Allergy Severe Hypertensio Verified 07/26/23 16:04 n amitriptyline Allergy Unknown . Verified 07/26/23 16:04 clarithromycin Allergy Unknown Gastrointestinal Verified 07/26/23 16:04 Upset Sulfa (Sulfonamide Allergy Unknown . Verified 07/26/23 16:04 Antibiotics) trimethobenzamide Allergy Unknown Rash Verified 07/26/23 16:04 duloxetine [From Cymbalta] Allergy Migraine Verified 07/26/23 16:04 rizatriptan [From Maxalt] Allergy Chest Verified 07/26/23 16:04 tightness nitrofurantoin AdvReac Mild GI upset Verified 07/26/23 16:04 [From Macrobid] and abdominal pain Medications Home Medications Medication Instructions Recorded Confirmed Last Taken naloxone 4 mg/actuation nasal spray 4 mg intranasal ONCE PRN opioid 12/04/19 07/26/23 Unknown overdose #2 ea acetaminophen 500 mg tablet 1,000 mg PO QAM PRN Pain 03/31/20 07/26/23 Unknown (Tylenol Extra Strength) meperidine 50 mg/5 mL oral solution 100 mg (10 mL) PO TID PRN 04/18/23 07/26/23 Unknown migraines #250 mL escitalopram oxalate 20 mg tablet 10 mg PO QAM 04/20/23 07/26/23 Unknown sennosides 25 mg tablet 25 mg PO HS 04/20/23 07/26/23 Unknown sennosides 8.6 mg-docusate sodium 1 tab-cap PO HS 04/20/23 07/26/23 Unknown 50 mg capsule topiramate 100 mg tablet 100 mg PO QAM 04/20/23 07/26/23 Unknown promethazine 25 mg tablet 25 mg PO BID PRN nausea and 04/26/23 07/26/23 Unknown vomiting 30 days #60 tabs ondansetron 4 mg disintegrating 4 mg PO Q8H PRN nausea and 06/10/23 07/26/23 Unknown tablet vomiting #20 tabs alprazolam 0.5 mg tablet 0.5 mg PO .COMPLEX PRN anxiety #60 06/30/23 07/26/23 Unknown tabs carisoprodol 350 mg tablet (Soma) 350 mg PO QID PRN Muscle Spasm #90 06/30/23 07/26/23 Unknown tabs oxycodone-acetaminophen 10 mg-325 1 tab PO Q6H PRN pain #75 tabs 06/30/23 07/26/23 Unknown mg tablet phentermine 37.5 mg tablet 37.5 mg PO DAILY #30 tabs 07/05/23 07/26/23 Unknown gabapentin 600 mg tablet 600 mg PO BID 07/26/23 07/26/23 Unknown Active Medications Generic Name Dose Route Start Last Admin Trade Name Freq PRN Reason Stop Dose Admin Lactated Ringer's 1,000 mls @ 15 mls/hr 07/26/23 16:00 07/26/23 16:36 Lr IV 08/25/23 15:59 15 mls/hr .Q24H CAIO Administration Past Medical History Medical History Hx of migraines History of anesthesia reaction "sat up and started talking during her last colonoscopy 10 years ago" Anxiety Presence of pessary History of COVID-2021, mild symptoms, no current symptoms Prolapse of female pelvic organs Recurrent UTI NO CURRENT ISSUES HTN (hypertension) Avascular necrosis Right hip, replaced in 2019 Asthma (11/02/12) no inhalers-"only happens with a panic attack" Cervical radiculopathy at C5 Fibromyalgia GERD (gastroesophageal reflux disease) Hyperlipidemia Spinal stenosis Degenerative disc disease Sciatica Herniated disc "numerous" Past Family History Family History Father Prostate cancer Bladder cancer Clotting disorder Hypertension Mother Lung cancer Denies family history of Ovarian cancer Diabetes Myocardial infarction Breast cancer Colorectal cancer Uterine cancer Past Surgical History Surgical History S/P endometrial ablation tubal done simultaneously per records History of surgery denervation of various spinal nerves. S/P epidural steroid injection Status post total hip replacement, right 2020 History of Achilles tendon repair RIGHT History of surgery D&E History of tonsillectomy and adenoidectomy History of bilateral breast reduction surgery History of esophagogastroduodenoscopy (EGD) History of colonoscopy History of hemorrhoidectomy Social History Smoking Status: Current every day smoker tobacco type: cigarettes Smoking cigarettes per day: vapes daily; has a rare cigarette Do You Dip or Chew Tobacco: No Hx Alcohol Use: Yes Alcohol type: wine alcohol intake frequency: holidays/special occasions only Hx Substance Use: Yes substance use type: marijuana Substance Use Type Other:: advised Last Used Substance Other:: uses daughter's medical marijuana [id number]-3-9.5 weeks ago Physical Exam Vital Signs Last Vital Signs Temp 37.3 C 07/26/23 16:29 Pulse 94 H 07/26/23 16:29 Resp 16 07/26/23 16:29 BP 135/85 07/26/23 16:29 Pulse Ox 98 07/26/23 16:29 O2 Del Method Room Air 07/26/23 16:29 Testing Laboratory Results 07/26/23 12:50 07/26/23 12:50 Urine Color Dark Yellow 07/26/23 12:45 Urine Appearance Cloudy (Clear) A 07/26/23 12:45 Urine pH 6.5 (4.5-7.5) 07/26/23 12:45 Ur Specific Krum 1.014 (1.000-1.030) 07/26/23 12:45 Urine Protein 2+ (Negative) H 07/26/23 12:45 Urine Glucose (UA) Negative (Negative) 07/26/23 12:45 Urine Ketones Negative (Negative) 07/26/23 12:45 Urine Nitrite Positive (Negative) A 07/26/23 12:45 Ur Leukocyte Esterase Trace (Negative) H 07/26/23 12:45 Urine WBC (Auto) 10-30 /hpf (0-5) H 07/26/23 12:45 Urine RBC (Auto) 5-10 /hpf (0-4) H 07/26/23 12:45 U Hyaline Cast (Auto) 1-5 /lpf (0-5) 07/26/23 12:45 U Epithel Cells (Auto) >30 /lpf (0-5) H 07/26/23 12:45 Urine Bacteria (Auto) 4+ (Negative) H 07/26/23 12:45 Electrocardiogram Date: 07/26/23 Findings: + NSR @ (95) Normal sinus rhythm Possible Left atrial enlargement Borderline ECG When compared with ECG of 07-JUN-2023 21:07, No significant change was found Chest X-Ray Date: 07/26/23 XR chest 1V portable HISTORY: Sepsis COMPARISON: Chest 07/08/2019. FINDINGS: The lungs are clear. Cardiac silhouette is normal in size. No pleural effusions. No pneumothorax. IMPRESSION: No acute process.
--- NOTE | 2023-07-26 15:50 | History & Physical Report ---
Date of Service July 26, 2023 Assessment & Plan (1) Sepsis: Plan: Source UTI as below Lactate within normal limits, no further fluid resuscitation required Follow-up blood and urine cultures (2) Pyelonephritis of right kidney: Plan: Cefepime given in the ER. Previous culture with E. coli resistance to cefazolin, Unasyn, ampicillin, Augmentin, gentamicin, tobramycin, Bactrim Switch antibiotics to ceftriaxone 2 g IV daily Follow-up urine and blood cultures (3) Right ureteral stone: Plan: Infected stone causing obstruction with associated hydronephrosis Consult urology - planning on ureteral stent in the OR (4) Hyponatremia: Plan: Most likely nutritional due to reduced electrolyte intake. She improved with normal saline overnight. BMP in a.m. (5) Hypomagnesemia: Plan: Magnesium 1.6 on admission. Magnesium sulfate 1 g IV given in ER, will give additional 1 g IV now Repeat level in a.m. (6) Hypokalemia: Plan: Potassium 2.9 on admission K rider 10 mEq IV given in the ER, additional K rider prescribed now and will give potassium chloride 40 mEq p.o. postoperatively Repeat BMP in a.m. (7) Elevated troponin: Plan: No chest pain or shortness of breath to suggest acute coronary syndrome EKG without ischemic changes Suspected secondary demand ischemia in the setting of sepsis (8) GERD (gastroesophageal reflux disease): Plan: No current symptoms. Monitor for reflux (9) Anxiety disorder: Plan: Continue her usual Xanax dosing Continue Lexapro 10 mg p.o. daily (10) Chronic low back pain: Plan: Continue her usual medications Plan VTE prophylaxis - Lovenox 40 mg subcu daily starting 07/27 Diet - n.p.o. pending in the OR Disposition - admit to PCU following the OR Admission and Anticipated Discharge Date Admission Date: July 26, 2023 History of Present Illness Chief Complaint: Dysuria Primary Care Provider: SKYLER [place] Azalia Norris is a 53-year-old female who presents to the ER with dysuria, urgency and frequency since March. She reports being on 3 rounds of antibiotics in March although nothing on her external med list. Concern for urinary tract infection and prescribed ciprofloxacin on outpatient visit April 26, 2023. She has also been using Azo which initially was helping but no longer. For the last week she developed right sided abdominal pain and right CVA tenderness getting worse every day. Fevers for the last 3 days. She denies any respiratory or gastrointestinal symptoms. In the ER she was diagnosed with right obstructive UVJ stone with associated hydronephrosis and urinalysis concerning for infection. She is febrile with a temperature of 39.2 C. ER physician discussed with urology and planning to take to the OR for ureteral stent. Medicine consulted for admission and ongoing management of UTI sepsis with obstructing stone. Allergies Allergy/AdvReac Type Severity Reaction Status Date / Time butorphanol Allergy Severe Hypertensio Verified 07/26/23 16:04 n amitriptyline Allergy Unknown . Verified 07/26/23 16:04 clarithromycin Allergy Unknown Gastrointestinal Verified 07/26/23 16:04 Upset Sulfa (Sulfonamide Allergy Unknown . Verified 07/26/23 16:04 Antibiotics) trimethobenzamide Allergy Unknown Rash Verified 07/26/23 16:04 duloxetine [From Cymbalta] Allergy Migraine Verified 07/26/23 16:04 rizatriptan [From Maxalt] Allergy Chest Verified 07/26/23 16:04 tightness nitrofurantoin AdvReac Mild GI upset Verified 07/26/23 16:04 [From Macrobid] and abdominal pain Home Medications Medication Instructions Recorded Confirmed Type naloxone 4 mg/actuation nasal spray 4 mg intranasal ONCE PRN opioid 12/04/19 07/26/23 Rx overdose #2 ea acetaminophen 500 mg tablet 1,000 mg PO QAM PRN Pain 03/31/20 07/26/23 History (Tylenol Extra Strength) meperidine 50 mg/5 mL oral solution 100 mg (10 mL) PO TID PRN 04/18/23 07/26/23 Rx migraines #250 mL escitalopram oxalate 20 mg tablet 10 mg PO QAM 04/20/23 07/26/23 History sennosides 25 mg tablet 25 mg PO HS 04/20/23 07/26/23 History sennosides 8.6 mg-docusate sodium 1 tab-cap PO HS 04/20/23 07/26/23 History 50 mg capsule topiramate 100 mg tablet 100 mg PO QAM 04/20/23 07/26/23 History promethazine 25 mg tablet 25 mg PO BID PRN nausea and 04/26/23 07/26/23 Rx vomiting 30 days #60 tabs ondansetron 4 mg disintegrating 4 mg PO Q8H PRN nausea and 06/10/23 07/26/23 Rx tablet vomiting #20 tabs alprazolam 0.5 mg tablet 0.5 mg PO .COMPLEX PRN anxiety #60 06/30/23 07/26/23 Rx tabs carisoprodol 350 mg tablet (Soma) 350 mg PO QID PRN Muscle Spasm #90 06/30/23 07/26/23 Rx tabs oxycodone-acetaminophen 10 mg-325 1 tab PO Q6H PRN pain #75 tabs 06/30/23 07/26/23 Rx mg tablet phentermine 37.5 mg tablet 37.5 mg PO DAILY #30 tabs 07/05/23 07/26/23 Rx gabapentin 600 mg tablet 600 mg PO BID 07/26/23 07/26/23 History Past Med/Surg History Medical History Hx of migraines History of anesthesia reaction "sat up and started talking during her last colonoscopy 10 years ago" Anxiety Presence of pessary History of COVID-19 2021, mild symptoms, no current symptoms Prolapse of female pelvic organs Recurrent UTI NO CURRENT ISSUES HTN (hypertension) Avascular necrosis Right hip, replaced in 2019 Asthma (11/02/12) no inhalers-"only happens with a panic attack" Cervical radiculopathy at C5 Fibromyalgia GERD (gastroesophageal reflux disease) Hyperlipidemia Spinal stenosis Degenerative disc disease Sciatica Herniated disc "numerous" Surgical History S/P endometrial ablation tubal done simultaneously per records History of surgery denervation of various spinal nerves. S/P epidural steroid injection Status post total hip replacement, right 2019 History of Achilles tendon repair RIGHT History of surgery D&E History of tonsillectomy and adenoidectomy History of bilateral breast reduction surgery History of esophagogastroduodenoscopy (EGD) History of colonoscopy History of hemorrhoidectomy Family History Father Prostate cancer Bladder cancer Clotting disorder Hypertension Mother Lung cancer Denies family history of Ovarian cancer Diabetes Myocardial infarction Breast cancer Colorectal cancer Uterine cancer Social History Smoking Status: Current every day smoker Tobacco Type: E-cigarettes / Vaping Age Started Using Tobacco: 12; Cigarettes Per Day: vapes daily; has a rare cigarette; Second Hand Exposure: Yes (hx); Do You Dip or Chew Tobacco: No; Hx Alcohol Use: Yes Alcohol type: wine Hx Substance Use: Yes Last Used Substance Other:: uses daughter's medical marijuana mvgpygrfqsib-2-4.5 weeks ago Substance Use Type Other:: advised Preferred Language: Swiss Communication Ability: Effective Field Return Repairer Required: No Beliefs That Will Affect Care: None marital status: Legally Current Living Situation: Family current occupational status: unemployed How many Children do You have: 3 Other Information That Helps Us Care for You: No Feels Safe at Home: Yes Safety Concerns: Feels Safe At This Time Childhood Exposure to Second-Hand Smoke: Yes Diet: regular caffeine: Yes Dental Care, Regularly: No Physical Activity Frequency: Daily Seatbelt Use: always Sunscreen Use: Yes Assistive Devices: Glasses Review of Systems Review of Systems: All systems reviewed & are unremarkable except as noted in HPI & below Physical Exam Constitutional: WD/WN, vitals as above Eyes: + anicteric sclerae; normal pupil size ENMT: external ear and nose normal, oropharynx normal Respiratory: normal respiratory effort, lungs clear to auscultation Cardiovascular: Rate/Rhythm: regular rhythm Heart Sounds: no murmur Extremities: normal capillary refill; no calf tenderness and no pedal edema Gastrointestinal (Abdomen): normal bowel sounds, soft, nontender, no hepatosplenomegaly Musculoskeletal: no cyanosis or clubbing, extremities motor strength 5/5 Skin: no rashes, warm and dry Neurologic: moves all extremities and awake; not confused Psychiatric: A+Ox3, euthymic affect Genitourinary: + CVA tenderness (Right) Results & Data Results & Data Vital Signs (Past 12 Hours) Vital Signs Temp Pulse Pulse Resp BP BP Pulse Ox 07/26/23 15:29 96 H 16 132/86 95 07/26/23 15:29 97 H 18 96 07/26/23 12:28 39.2 C H 114 H 20 139/84 95 O2 Del Method 07/26/23 15:29 Room Air 07/26/23 15:29 Room Air 07/26/23 12:28 Room Air Laboratory Results Abnormal lab results 07/26/23 07/26/23 Range/Units 12:45 12:50 RBC 3.74 L (4.20-5.40) M/uL Hgb 11.8 L (12.0-16.0) g/dl Hct 34.9 L (37.0-47.0) % Neut # (Auto) 7.86 H (1.40-6.50) K/uL Lymph # (Auto) 0.34 L (1.20-3.40) K/uL Sodium 129 L (136-145) mmol/L Potassium 2.9 L (3.5-5.1) mmol/L Chloride 97 L (98-107) mmol/L BUN/Creatinine Ratio 21.5 H (10-20) Glucose 115 H (70-99(Fasting)) mg/dl Magnesium 1.6 L (1.7-2.4) mg/dl Direct Bilirubin 0.4 H (0-0.2) mg/dl AST 40 H (13-39) U/L Alkaline Phosphatase 177 H (34-104) U/L Troponin I High Sens 116.8 H* (0-14) pg/ml Procalcitonin 1.99 H (0-0.5) ng/ml Urine Appearance Cloudy A (Clear) Urine Protein 2+ H (Negative) Urine Blood 2+ H (Negative) Urine Nitrite Positive A (Negative) Urine Urobilinogen Positive H (Negative) Ur Leukocyte Esterase Trace H (Negative) Urine WBC (Auto) 10-30 H (0-5) /hpf Urine RBC (Auto) 5-10 H (0-4) /hpf U Epithel Cells (Auto) >30 H (0-5) /lpf Urine Bacteria (Auto) 4+ H (Negative) Diagnostic Findings XR chest 1V portable HISTORY: Sepsis COMPARISON: Chest 07/08/2019. FINDINGS: The lungs are clear. Cardiac silhouette is normal in size. No pleural effusions. No pneumothorax. IMPRESSION: No acute process. CT abd pelvis wo con CLINICAL HISTORY: uti, poss obstruc TECHNIQUE: Helical axial images of the abdomen and pelvis were obtained. Automated dose lowering techniques and/or adjustment according to patient size were utilized for this exam. This exam was performed without intravenous contrast. CT DOSE: 1148.26 mGy.cm COMPARISON: Comparison is made to CT abdomen pelvis 05/25/2019 FINDINGS: Lower chest: Bibasilar atelectasis versus scarring is seen. Liver: Multiple renal cysts are seen. Gallbladder and biliary tree: No calcified gallstones. Normal caliber wall. No intra- or extrahepatic biliary ductal dilation. Pancreas: Unremarkable, no focal lesions. Spleen: Splenule is incidentally noted. Adrenals: Unremarkable. Kidneys and ureters: Right UVJ stone measures 4 mm with associated hydronephrosis and hydroureter. Additional nonobstructive stones are seen. Bladder: Unremarkable. Reproductive organs: Unremarkable. Bowel: The appendix is normal. Lymph nodes Retroperitoneal: Subcentimeter lymph nodes are noted. Pelvic: Unremarkable. Mesenteric: Unremarkable. Peritoneum: Normal. Vessels: Atherosclerotic calcifications are seen. Abdominal wall: Right fat-containing inguinal hernia. Bones: Degenerative changes in the visualized spine. Right hip total arthroplasty is seen. IMPRESSION: Right obstructive UVJ stone with associated hydronephrosis and hydroureter. Otherwise no acute abnormalities. Medications Administered ER medications given: NSS 1 L bolus Cefepime 2 g IV Acetaminophen 1 g IV Ondansetron 4 mg IV Morphine 4 mg IV K rider 10 mEq IV Mag sulfate 1 g IV Normal saline 500 mL bolus Lorazepam 1 mg IV ECG Rate (beats per minute): 95 Rhythm: normal sinus Findings: no acute ischemic change Comparison ECG Date: from (June 07, 2023) Change: no significant change Code Status & VTE Plan Code Status Full VTE Prophylaxis Plan VTE Prophylaxis will be ordered: Yes PG Care Time/CCT Total # of Minutes Spent Total Time Spent with Patient: Total time spent is greater than 50% in coordination of care (as documented) at patient's floor/unit and/or counseling patient: Coding Level of Care Code 38896 INT INP/OBS CARE 3/75MIN Diagnoses Sepsis A41.9 Pyelonephritis of right kidney N12 Right ureteral stone N20.1 Hyponatremia E87.1 Hypomagnesemia E83.42 Hypokalemia E87.6 Elevated troponin R79.89 GERD (gastroesophageal reflux disease) K21.9 Anxiety disorder F41.9 Chronic low back pain M54.5; G89.29
--- NOTE | 2023-07-26 15:52 | Urology Consultation ---
Date of Consultation July 26, 2023 Assessment & Plan (1) Right ureteral stone: (2) Acute UTI: 53 yo/F presenting with worsening right flank pain, fever and urinary symptoms. CT on arrival notable for an obstructing 4 mm right UVJ stone. Patient is febrile and tachycardic Labs show -creatinine 0.79, no leukocytosis Urinalysis concerning for infection with 4+ bacteria and positive nitrates Urine and blood cultures are pending Treated with cefepime in the emergency department Recommend admit to the medicine service Recommend continue broad-spectrum antibiotics and narrow per sensitivity data when available CT reviewed and discussed with patient and daughter- discussed findings of an obstructing right ureteral stone Discussed obstructing stone and concern for UTI and developing sepsis Recommend right ureteral stent placement emergently We discussed stone treatment to be done in the future They are agreeable with the plan Proceed to OR emergently for cystoscopy, retrograde pyelogram and right ureteral stent placement Keep NPO for procedure Gu will follow Supervising Physician Co-Signing Physician Notes suspected sepsis from right UVJ stone plan for emergent cysto, stent placement risks, benefits, expectations reviewed History of Present Illness Requesting Physician: Dr. Pavon History of Present Illness This is a 53-year-old female with past medical history of nephrolithiasis who presented to the emergency department today with worsening abdominal/flank pain, urinary symptoms and fever. On arrival, she is febrile at 39.2, tachycardic, normotensive. Labs show WBC 8.89, hemoglobin 11.8, creatinine 0.79, sodium 129, potassium 2.9. Troponin 116. Urinalysis notable for 2+ blood, positive nitrites, trace leukocyte esterase, 10-30 WBC, 5-10 RBC, >30 epithelials and 4+ bacteria. Urine and blood cultures collected and pending. COVID, influenza and RSV testing negative. CT A/P without con reviewed and notable for a 4 mm right UVJ stone with hydroureteronephrosis, additional nonobstructing stones bilaterally. Patient seen and examined in the emergency department. Daughter at bedside. She reports history of kidney stones. No prior stone surgery or intervention. She reports several months history of recurrent UTIs, has been on multiple different antibiotics within the last few months per her report. She has been having intermittent right flank and abdominal discomfort over the last few months, which worsened about 3 days ago. She reports fever today which prompted ER evaluation. She reports malodorous urine and dysuria, no hematuria. She has had sips today, has not eaten. Allergies Allergy/AdvReac Type Severity Reaction Status Date / Time butorphanol Allergy Severe Hypertensio Verified 07/26/23 16:04 n amitriptyline Allergy Unknown . Verified 07/26/23 16:04 clarithromycin Allergy Unknown Gastrointestinal Verified 07/26/23 16:04 Upset Sulfa (Sulfonamide Allergy Unknown . Verified 07/26/23 16:04 Antibiotics) trimethobenzamide Allergy Unknown Rash Verified 07/26/23 16:04 duloxetine [From Cymbalta] Allergy Migraine Verified 07/26/23 16:04 rizatriptan [From Maxalt] Allergy Chest Verified 07/26/23 16:04 tightness nitrofurantoin AdvReac Mild GI upset Verified 07/26/23 16:04 [From Macrobid] and abdominal pain Home Medications Medication Instructions Recorded Confirmed Type naloxone 4 mg/actuation nasal spray 4 mg intranasal ONCE PRN opioid 12/04/19 04/26/23 Rx overdose #2 ea acetaminophen 500 mg tablet 1,000 mg PO QAM PRN Pain 03/31/20 04/26/23 History (Tylenol Extra Strength) mupirocin 2 % topical ointment 1 applic topical BID #15 grams 02/11/23 04/26/23 Rx meperidine 50 mg/5 mL oral solution 100 mg (10 mL) PO TID PRN 04/18/23 04/26/23 Rx migraines #250 mL peg 3350-sod sulf,[id number]-[id number] See Rx Instructions PO .COMPLEX #2 04/18/23 04/26/23 Rx 178.7-7.3-0.5-1.12-0.9 gram oral mL soln (Suflave) escitalopram oxalate 20 mg tablet 10 mg PO QAM 04/20/23 04/26/23 History sennosides 25 mg tablet 25 mg PO HS 04/20/23 04/26/23 History sennosides 8.6 mg-docusate sodium 1 tab-cap PO HS 04/20/23 04/26/23 History 50 mg capsule topiramate 100 mg tablet 100 mg PO QAM 04/20/23 04/26/23 History promethazine 25 mg tablet 25 mg PO BID PRN nausea and 04/26/23 04/26/23 Rx vomiting 30 days #60 tabs nirmatrelvir 300 mg (150 mg See Rx Instructions PO .COMPLEX 06/08/23 Rx x2)-ritonavir 100 mg tablet,dose #30 ea pack (Paxlovid) prednisone 20 mg tablet See Rx Instructions PO .COMPLEX 06/08/23 06/08/23 Rx #30 tabs ondansetron 4 mg disintegrating 4 mg PO Q8H PRN nausea and 06/10/23 Rx tablet vomiting #20 tabs phenazopyridine 200 mg tablet 200 mg PO TID pain #9 tabs 06/10/23 Rx (Pyridium) cephalexin 500 mg capsule 500 mg PO BID 7 days #14 caps 06/13/23 Rx alprazolam 0.5 mg tablet 0.5 mg PO .COMPLEX PRN anxiety #60 06/30/23 Rx tabs carisoprodol 350 mg tablet (Soma) 350 mg PO QID PRN Muscle Spasm #90 06/30/23 Rx tabs gabapentin 600 mg tablet 600 mg PO TID #90 tabs 06/30/23 Rx oxycodone-acetaminophen 10 mg-325 1 tab PO Q6H PRN pain #75 tabs 06/30/23 Rx mg tablet phentermine 37.5 mg tablet 37.5 mg PO DAILY #30 tabs 07/05/23 Rx Patient History Medical History Hx of migraines History of anesthesia reaction "sat up and started talking during her last colonoscopy 10 years ago" Anxiety Presence of pessary History of COVID-19 2021, mild symptoms, no current symptoms Prolapse of female pelvic organs Recurrent UTI NO CURRENT ISSUES HTN (hypertension) Avascular necrosis Right hip, replaced in 2020 Asthma (11/02/12) no inhalers-"only happens with a panic attack" Cervical radiculopathy at C5 Fibromyalgia GERD (gastroesophageal reflux disease) Hyperlipidemia Spinal stenosis Degenerative disc disease Sciatica Herniated disc "numerous" Surgical History S/P endometrial ablation tubal done simultaneously per records History of surgery denervation of various spinal nerves. S/P epidural steroid injection Status post total hip replacement, right 2019 History of Achilles tendon repair RIGHT History of surgery D&E History of tonsillectomy and adenoidectomy History of bilateral breast reduction surgery History of esophagogastroduodenoscopy (EGD) History of colonoscopy History of hemorrhoidectomy Family History Father Prostate cancer Bladder cancer Clotting disorder Hypertension Mother Lung cancer Denies family history of Ovarian cancer Diabetes Myocardial infarction Breast cancer Colorectal cancer Uterine cancer Social History Smoking Status: Current every day smoker Tobacco Type: E-cigarettes / Vaping Age Started Using Tobacco: 12; Cigarettes Per Day: vapes daily; has a rare cigarette; Second Hand Exposure: Yes (hx); Do You Dip or Chew Tobacco: No; Hx Alcohol Use: Yes Alcohol type: wine Hx Substance Use: Yes Last Used Substance Other:: uses daughter's medical marijuana [id number] weeks ago Substance Use Type Other:: advised Preferred Language: Amharic Communication Ability: Effective Water Meter Reader Required: No Beliefs That Will Affect Care: None marital status: Legally Current Living Situation: Family current occupational status: unemployed How many Children do You have: 3 Feels Safe at Home: Yes Childhood Exposure to Second-Hand Smoke: Yes Diet: regular caffeine: Yes Dental Care, Regularly: No Physical Activity Frequency: Daily Seatbelt Use: always Sunscreen Use: Yes Assistive Devices: Glasses Review of Systems Review of Systems: All systems reviewed & are unremarkable except as noted in HPI & below Physical Exam Constitutional: well developed and well nourished; no acute distress Eyes: no scleral abnormality Neck: normal visual inspection Respiratory: normal respiratory effort; no respiratory distress and no labored breathing Cardiovascular: Rate/Rhythm: + tachycardic Extremities: no pedal edema Gastrointestinal (Abdomen): Inspection/Auscultation: abdomen normal to inspection Musculoskeletal: Head/Neck/Chest: normocephalic Skin: no visible skin rashes Neurologic: moves all extremities and awake Psychiatric: Orientation: alert and oriented x 3 Genitourinary: Mild tenderness to palpation over right flank Results & Data Vital Signs (Past 12 Hours) Vital Signs Temp Pulse Resp BP Pulse Ox O2 Del Method 07/26/23 12:28 39.2 C H 114 H 20 139/84 95 Room Air PG Care Time/CCT Total # of Minutes Spent Total Time Spent with Patient: Total time spent is greater than 50% in coordination of care (as documented) at patient's floor/unit and/or counseling patient: Coding Level of Care Code 57598 OFFICE CONSULT LVL Diagnoses Right ureteral stone N20.1 Acute UTI N39.0
[2023-07-26] MEDS ORDERED: LACTATED RINGER'S 1,000 ML IV SCH ×2 (16:00→18:45)
[2023-07-26] MEDS ORDERED: PROPOFOL IV EMULSION 10 MG/ML 20 ML VIAL IV ONE ×3 (16:32→16:33)
[2023-07-26] MEDS ORDERED: MIDAZOLAM HCL 1 MG/ML 2ML VIAL ONE ×2 (16:32→16:57)
[2023-07-26] MEDS ORDERED: fentaNYL citrate PF 100 MCG/2 ML VIAL ONE (16:32)
[2023-07-26] MEDS ORDERED: DEXAMETHASONE SOD INJ 4 MG/ML VIAL ONE (16:33)
[2023-07-26] MEDS ORDERED: ONDANSETRON INJ 2 MG/ML 2 ML VIAL ONE (16:33)
[2023-07-26 16:49] LABS: Pregnancy Test, Serum Negative (Negative)
--- NOTE | 2023-07-26 17:18 | Operative Report ---
PG Post Operative Report Pre & Post Diagnosis Operation Date: 07/26/23 09:15 Pre: right ureteral stone Post: right ureteral stone I identified the patient and participated in the time-out.: Yes Procedure Operation Date: 07/26/23 09:15 Procedure: cystoscopy, right retrograde pyelogram, right ureteral stent ([id number]) Surgeon Yoel Romero MD [employer] none Estimated Blood Loss 0 Findings Consistent with Post-Op Diagnosis Specimens none Description of Procedure The patient was identified in the preoperative holding area, appropriate informed consents were reviewed and completed and the patient was transferred to the operative suite. Upon arrival, appropriate antibiotics and anesthesia were administered and the patient was placed in dorsal lithotomy position and prepped and draped in sterile fashion. To begin the case I passed a 21 [place] cystoscope with 30 degree lens and visual obturator. Full inspection of the bladder was conducted. Of note, she has a r elatively significant anterior prolapse, however when in the supine position/dorsolithotomy position, this was reduced and her anatomy appears quite normal. Her bladder had no mucosal abnormalities and ureteral orifices were in orthotopic position. There were no stones within the bladder. There were no ulcers or tumors. I turned my attention to her right ureteral orifice and cannulated with a sensor wire. Wire advanced the kidney without difficulty. I did perform a retrograde pyelogram to confirm the positioning of the wire. The retrograde pyelogram showed minimal dilation of her right renal pelvis and ureter. I could appreciate no filling defects or other gross abnormalities. There was no extravasation. The wire was positioned within the right renal pelvis. I proceeded to place a 6 [place] by 24 cm double-J stent seeing a good curl in the kidney as well as the bladder. The bladder was decompressed and the case was concluded. There were no complications I attest to the content of the Intraoperative Record and any orders documented therein. Any exceptions are noted below.
--- NOTE | 2023-07-26 17:22 | Fluoroscopy Report ---
FL retrograde includes kub CLINICAL HISTORY: CYSTO STENTright-sided ureteral stent placement COMPARISON STUDY: CT 07/26/2023 FLUOROSCOPY TIME: 12.4 seconds FLUOROSCOPY IMAGES: 1 EXPOSURE DOSE: 2.43 mGy FINDINGS: The proximal portion of a right ureteral stent is in satisfactory positioning. No significa nt hydronephrosis. The distal portion of the stent was not imaged. IMPRESSION: Fluoroscopic assistance as above. ACT 112: Negative or not required by law. Electronically signed by: Alden Basilio M.D. 07/26/2023 5:21 PM
[2023-07-26] MEDS ORDERED: DIATRIZOATE MEGLUMINE 30% 100ML VIAL INSTIL ONE (17:30)
--- NOTE | 2023-07-26 17:41 | Anesthesiology Progress Note ---
Date of Service July 26, 2023 Anesthesia Post Procedure Vital Signs Vital Signs: Temp Pulse Pulse Resp BP BP Pulse Ox 07/26/23 17:25 80 17 117/73 98 07/26/23 17:18 36.7 C 87 21 107/71 98 07/26/23 16:29 37.3 C 94 H 16 135/85 98 07/26/23 15:29 96 H 16 132/86 95 07/26/23 15:29 97 H 18 96 07/26/23 12:28 39.2 C H 114 H 20 139/84 95 O2 Del Method O2 Flow Rate 07/26/23 17:25 Oxymask 6 07/26/23 17:18 Oxymask 6 07/26/23 16:29 Room Air 07/26/23 15:29 Room Air 07/26/23 15:29 Room Air 07/26/23 12:28 Room Air Pain Intensity Flank: Pain Intensity: 8 Transfer of Care Handoff Completed per policy Notes Mental Status: alert / awake / arousable and participated in evaluation Patient Amnestic to Procedure: Yes Nausea / Vomiting: adequately controlled Pain: adequately controlled Airway Patency, RR, SpO2: stable & adequate BP & HR: stable & adequate Hydration State: stable & adequate Anesthetic Complications: no major complications apparent and Pt Satisfied with anesthetic care
[2023-07-26] MEDS ORDERED: MAGNESIUM SULFATE / D5W 1 GM/100 ML BAG IV ONE (18:42)
[2023-07-26] MEDS: POTASSIUM CHLORIDE / WTR 10 MEQ/100 ML PLCT IV SCH (18:45)
[2023-07-26] MEDS ORDERED: ALPRAZolam 0.5 MG TABLET PO PRN (18:46)
[2023-07-26] MEDS: cefTRIAXone SODIUM 2,000 MG in DEXTROSE 5 % MINI-B 50 ML IV SCH (19:28)
[2023-07-26] MEDS: ACETAMINOPHEN 325 MG TAB PO PRN (19:44)
[2023-07-26] MEDS: GABAPENTIN 600 MG TAB PO SCH (19:55)
[2023-07-26] MEDS ORDERED: POTASSIUM CHLORIDE CRTAB 20 MEQ TABCR PO STA (20:19)
[2023-07-26] MEDS: oxyCODONE HCL IR 5 MG TAB (IMMEDIATE RELEASE) PO PRN (20:38)
[2023-07-26] MEDS: SODIUM CHLORIDE 0.9% 1,000 ML IV SCH (20:41)
[2023-07-26] MEDS: PROMETHAZINE HCL 25 MG TAB PO PRN (20:51)
[2023-07-26] MEDS ORDERED: SENNA 8.6 MG TAB PO SCH (21:00)
[2023-07-26] MEDS: CARISOPRODOL 350 MG TABLET PO PRN (22:09)
[2023-07-27 02:36] LABS: A calco-baum cmplx NotReported Not Detected (NotDetected); Bact fragilis Not Reported Not Detected (NotDetected); Blood Culture Id Panel See PCR Comment (NotDetected); C auris Not Reported Not Detected (NotDetected); CTX-M Resistant Gene Not Detected (NotDetected); Calbicans Not Reported Not Detected (NotDetected); Candida glabrata Not Reported Not Detected (NotDetected); Candida krusei Not Reported Not Detected (NotDetected); Cneoformans/gatti Not Reported Not Detected (NotDetected); Cparapsilosis Not Reported Not Detected (NotDetected); E cloacae compx Not Reported Not Detected (NotDetected); Efaecalis Not Reported Not Detected (NotDetected); Efaecium Not Reported Not Detected (NotDetected); Enterobacterales DETECTED (NotDetected); Enterobacterales Not Reported DETECTED (NotDetected); Escherichia coli Not Reported DETECTED (NotDetected); H influenzae Not Reported Not Detected (NotDetected); IMP Resistant Gene Not Detected (NotDetected); K aerogenes Not Reported Not Detected (NotDetected); KPC Resistant Gene Not Detected (NotDetected); Koxytoca Not Reported Not Detected (NotDetected); Kpneumoniae grp Not Reported Not Detected (NotDetected); Lmonocyt Not Reported Not Detected (NotDetected); N meningitidis Not Reported Not Detected (NotDetected); NDM Resistant Gene Not Detected (NotDetected); OXA 48 Like Resistant Gene Not Detected (NotDetected); P aeruginosa Not Reported Not Detected (NotDetected); Proteus spp Not Reported Not Detected (NotDetected); Salmonella spp Not Reported Not Detected (NotDetected); Smarcescens Not Reported Not Detected (NotDetected); Staph lugdunensis Not Reported Not Detected (NotDetected); Staph spp. Not Reported Not Detected (NotDetected); Staphaureus Not Reported Not Detected (NotDetected); Staphepi Not Reported Not Detected (NotDetected); Stenmaltophilia Not Reported Not Detected (NotDetected); Strep agal(GrpB) Not Reported Not Detected (NotDetected); Strep pneum Not Reported Not Detected (NotDetected); Strep pyog (GrpA) Not Reported Not Detected (NotDetected); Strep spp Not Reported Not Detected (NotDetected); VIM Resistant Gene Not Detected (NotDetected); mcr-1 Colistin Resistant Gene Not Detected (NotDetected)
[2023-07-27] MEDS: ACETAMINOPHEN 325 MG TAB PO PRN ×2 (03:07→17:38)
[2023-07-27] MEDS: oxyCODONE HCL IR 5 MG TAB (IMMEDIATE RELEASE) PO PRN ×4 (03:08→18:52)
[2023-07-27] MEDS: SODIUM CHLORIDE 0.9% 1,000 ML IV SCH ×2 (04:38→12:25)
[2023-07-27 06:46] LABS: Basophils # (auto) 0.02 K/uL (0.00-0.20); Basophils % (auto) 0.2 %; Hemoglobin 9.9 g/dl (12.0-16.0); Immature Granulocytes # (auto) 0.12 K/uL (0.01-0.20); Immature Granulocytes % (auto) 1.4 %; Lymphocytes # (auto) 0.58 K/uL (1.20-3.40); Mean Corpuscular Hemoglobin 31.6 pg (25.0-34.0); Mean Corpuscular Volume 95.8 fL (80.0-100.0); Mean Platelet Volume 9.7 fL (9.4-12.4); Monocytes # (auto) 0.71 K/uL (0.11-0.59); Monocytes % (auto) 8.5 %; Neutrophils # (auto) 6.89 K/uL (1.40-6.50); Neutrophils % (auto) 82.9 %; Platelet Count 137 K/uL (130-400); RDW Coefficient of Variation 12.5 % (11.5-14.5); RDW Standard Deviation 44.4 fL (36.4-46.3); Red Blood Count 3.13 M/uL (4.20-5.40); White Blood Count 8.32 K/ul (4.8-10.8)
[2023-07-27 07:22] LABS: Calcium 8.2 mg/dl (8.6-10.3); Creatinine Clr Calc Pharmacy 99.8 ml/min; Est GFR (African American) 118.7 ml/min; Est GFR (Non-African American) 102.4 ml/min; Potassium 3.7 mmol/L (3.5-5.1)
[2023-07-27] MEDS: ESCITALOPRAM OXALATE 10 MG TAB PO SCH (08:02)
[2023-07-27] MEDS: GABAPENTIN 600 MG TAB PO SCH ×2 (08:02→20:34)
[2023-07-27] MEDS: TOPIRAMATE 100 MG TAB PO SCH (08:02)
--- NOTE | 2023-07-27 08:48 | Urology Progress Note ---
Date of Service July 27, 2023 Assessment & Plan (1) Right ureteral stone: (2) Sepsis: (3) Acute UTI: Plan: Follow-up of an obstructing right UVJ stone, UTI/sepsis and bacteremia POD #1 status post emergent right stent placement with Dr. Romero Afebrile overnight, hemodynamically stable Labs today showcreatinine 0.63, WBC 8.32, hemoglobin 9.9 Urine and blood cultures growing gram-negative bacilli Treated with cefepime on arrival, now on IV ceftriaxone Continue with broad-spectrum antibiotics and narrow per sensitivity data when available Reports ongoing right upper quadrant/epigastric discomfort this morning Discussed that this may not be stent or related, notified her attending Will add Tamsulosin and prn Pyridium and Oxybutynin for stent management Continue with supportive care, antibiotics, and medical management per hospital medicine service I have relayed her other concerns regarding home medications/increased anxiety to her attending hospitalist Will arrange outpatient follow-up with our service to set up definitive stone treatment after infection has been treated will follow peripherally, contact our service with any additional issues or concerns Admission and Anticipated Discharge Date Admission Date: July 26, 2023 Subjective Patient seen and examined at bedside this morning, chart reviewed She is tearful upon my arrival Has multiple concerns including reconciling her home medications Reports increased anxiety Reports right upper quadrant abdominal discomfort She is voiding spontaneously Reports dysuria, hematuria has cleared postprocedure No fever or chills overnight Review of Systems Constitutional: as per Subjective / HPI Gastrointestinal: as per Subjective / HPI Genitourinary: as per Subjective / HPI Physical Exam Constitutional: well developed and well nourished; no acute distress Respiratory: normal respiratory effort; no respiratory distress and no labored breathing Cardiovascular: Extremities: no pedal edema Gastrointestinal (Abdomen): Inspection/Auscultation: abdomen normal to inspection Percussion/Palpation: + abdomen tender (mildly tender to palpation just to the right of her epigastric region) and abdomen soft Musculoskeletal: Head/Neck/Chest: normocephalic Neurologic: moves all extremities and awake Psychiatric: Orientation: alert and oriented x 3 Eye Contact: good eye contact Mood: + anxious mood tearful Results & Data Vital Signs (Past 12 Hours) Vital Signs Temp Pulse Pulse Resp BP Pulse Ox O2 Del Method 07/27/23 07:04 36.6 C 73 20 144/89 H 100 Room Air 07/27/23 04:18 36.8 C 78 18 127/69 96 Room Air 07/26/23 22:43 36.4 C L 91 H 20 115/85 94 Room Air 07/26/23 22:20 86 PG Care Time/CCT Total # of Minutes Spent Total Time Spent with Patient: Total time spent is greater than 50% in coordination of care (as documented) at patient's floor/unit and/or counseling patient: Coding Level of Care Code 42801 SUB INP/OBS CARE 25MIN Diagnoses Right ureteral stone N20.1 Sepsis A41.9 Acute UTI N39.0
[2023-07-27 08:57] LABS: Albumin Level 2.9 gm/dl (3.4-5.0); Bilirubin Direct 0.1 mg/dl (0-0.2); Bilirubin,Total 0.3 mg/dl (0.2-1.0); Total Protein 5.9 gm/dl (6.0-8.3)
[2023-07-27] MEDS: ALPRAZolam 0.5 MG TABLET PO PRN ×2 (09:03→20:26)
[2023-07-27] MEDS: DOCUSATE SODIUM/SENNA 50/8.6MG TAB PO SCH ×2 (09:03→20:34)
--- NOTE | 2023-07-27 12:05 | Hospitalist Progress Note ---
Date of Service July 27, 2023 Assessment & Plan (1) Sepsis: Plan: With tachycardia, fever, and source UTI with presumed pyelonephritis. With right ureteral obstructing stone Now with septicemia with E. coli bacteremia in 4/4 bottles from initial blood cultures Urine culture with gram-negative bacilli Blood cultures with E. coli Blood pressures are normal, lactate normal. S/p right ureteral stent placement with urology urgently on 07/26 Mildly elevated LFTs likely secondary to sepsis and now improved-CT abdomen/pelvis only with hepatic cysts but no other abnormalities -Check repeat blood cultures -Continue IV ceftriaxone until defervesced and blood cultures on repeat remain no growth and then convert to oral antibiotics for total of 10 days -Follow CBC, CMP (2) Pyelonephritis of right kidney: Plan: As above (3) Right ureteral stone: Plan: As above Follow-up with urology after discharge for ureteral stent and stone management Start oxybutynin, Pyridium as needed Start tamsulosin at bedtime (4) Hyponatremia: Plan: Most likely nutritional due to reduced electrolyte intake. Now resolved after IV fluids Follow BMP (5) Hypomagnesemia: Plan: Magnesium 1.6 on admission. Magnesium replaced and now level is normal (6) Hypokalemia: Plan: Potassium 2.9 on admission Potassium was replaced and now is normal Follow BMP (7) Elevated troponin: Plan: No chest pain or shortness of breath to suggest acute coronary syndrome. Initial troponin was elevated at 116 and quickly improved down to 16.9 EKG without ischemic changes Suspected secondary demand ischemia in the setting of sepsis Check ECHO Monitor on telemetry (8) Anxiety disorder: Plan: Continue her usual Xanax dosing but will make every 4 hours as needed with max of 3 doses per day similar to how she takes it at home Continue Lexapro 10 mg p.o. daily Emotionally labile here in the hospital secondary to current medical condition (9) Chronic low back pain: Plan: Increase to her home dose of oxycodone 10 mg Continue senna/docusate alternating with senna for opioid-induced constipation Continue home Soma Continue gabapentin Presumably Topamax is for weight loss as she sees a bariatrics clinic and also has been prescribed phentermine in the past-of note, Topamax can cause kidney stones-consider discontinuing this Plan VTE prophylaxis - Lovenox 40 mg subcu daily Disposition -continued stay in PCU Admission and Anticipated Discharge Date Admission Date: July 26, 2023 Subjective Patient very anxious and tearful about her current condition. She is having suprapubic pain and is urinating but feels like she is not completely emptying. Bladder scan was normal. She is having some right-sided abdominal pain that seems consistent with her pyelonephritis. She describes significant anxiety and typically takes her Xanax 2 or 3 tablets at a time on some days and not at all and other days. She takes her oxycodone 10 mg 1-2 times a day on a daily basis for her chronic pain. She is very anxious about her bladder prolapse and would like to have it fixed. Telemetry with normal sinus rhythm with rates in the 60s to 80s I discussed her care with urology nurse practitioner Physical Exam Constitutional: WD/WN, vitals as above Neck: trachea midline, no thyromegaly Respiratory: normal respiratory effort, lungs clear to auscultation Cardiovascular: RRR, no murmur, no edema Chest (Breasts): Chest: normal inspection of chest Gastrointestinal (Abdomen): normal bowel sounds, soft, nontender, no hepatosplenomegaly Musculoskeletal: Extremities: extremities normal to inspection; no cyanosis and no clubbing Skin: no rashes, warm and dry Neurologic: moves all extremities and awake; no focal motor deficits Lymphatic: no lymphedema Results & Data Results & Data Vital Signs (Past 12 Hours) Vital Signs Temp Pulse Resp BP Pulse Ox O2 Del Method 07/27/23 07:04 36.6 C 73 20 144/89 H 100 Room Air 07/27/23 04:18 36.8 C 78 18 127/69 96 Room Air Laboratory Results CBC, BMP, magnesium level, LFTs, blood cultures, and urine culture all reviewed Troponin reviewed PG Care Time/CCT Total # of Minutes Spent Total Time Spent with Patient: Total time spent is greater than 50% in coordination of care (as documented) at patient's floor/unit and/or counseling patient: Coding Level of Care Code 82100 SUB INP/OBS CARE 3/50MIN Diagnoses Sepsis A41.9 Pyelonephritis of right kidney N12 Right ureteral stone N20.1 Hyponatremia E87.1 Hypomagnesemia E83.42 Hypokalemia E87.6 Elevated troponin R79.89 Anxiety disorder F41.9 Chronic low back pain M54.5; G89.29
[2023-07-27] MEDS: oxyBUTYnin chloride 5 MG TAB PO PRN ×2 (12:13→20:26)
[2023-07-27] MEDS: PHENAZOPYRIDINE HCL 200 MG TAB PO PRN ×3 (12:56→20:56)
[2023-07-27] MEDS: cefTRIAXone SODIUM 2,000 MG in DEXTROSE 5 % MINI-B 50 ML IV SCH (20:25)
[2023-07-27] MEDS: ENOXAPARIN INJ 40 MG/0.4 ML SYR SQ SCH (20:34)
[2023-07-27] MEDS: TAMSULOSIN HCL 0.4 MG CAP PO SCH (20:36)
[2023-07-27] MEDS: CARISOPRODOL 350 MG TABLET PO PRN (20:56)
[2023-07-27] MEDS ORDERED: DOCUSATE SODIUM/SENNA 50/8.6MG TAB PO SCH (21:00)
--- NOTE | 2023-07-27 21:56 | XCELERA ---
[id number]
[2023-07-28] MEDS: ALPRAZolam 0.5 MG TABLET PO PRN ×3 (00:30→20:49)
[2023-07-28] MEDS: oxyCODONE HCL IR 5 MG TAB (IMMEDIATE RELEASE) PO PRN ×2 (03:24→09:45)
[2023-07-28] MEDS: PROMETHAZINE HCL 25 MG TAB PO PRN ×2 (03:29→10:47)
[2023-07-28] MEDS ORDERED: KETOROLAC TROMETHAMINE 15 MG/ML VIAL IV ONE (05:28)
[2023-07-28] MEDS: ONDANSETRON INJ 2 MG/ML 2 ML VIAL IV PRN ×2 (06:42→21:24)
[2023-07-28 07:42] LABS: BUN Creatinine Ratio 18.8 (10-20); Est GFR (African American) 115.2 ml/min; Est GFR (Non-African American) 99.4 ml/min; Potassium 3.2 mmol/L (3.5-5.1)
[2023-07-28] MEDS ORDERED: POTASSIUM CHLORIDE CRTAB 20 MEQ TABCR PO STA (08:28)
[2023-07-28] MEDS: ACETAMINOPHEN 325 MG TAB PO PRN ×3 (09:42→20:49)
[2023-07-28] MEDS: GABAPENTIN 600 MG TAB PO SCH ×2 (09:43→20:50)
[2023-07-28] MEDS: ESCITALOPRAM OXALATE 10 MG TAB PO SCH (09:43)
[2023-07-28] MEDS: TOPIRAMATE 100 MG TAB PO SCH (09:44)
[2023-07-28] MEDS: PHENAZOPYRIDINE HCL 200 MG TAB PO PRN ×2 (09:45→20:50)
[2023-07-28] MEDS: oxyBUTYnin chloride 5 MG TAB PO PRN (13:11)
[2023-07-28] MEDS: CARISOPRODOL 350 MG TABLET PO PRN (13:24)
[2023-07-28] MEDS ORDERED: KETOROLAC 30 MG/ML VIAL IV ONE (14:36)
[2023-07-28] MEDS ORDERED: METOCLOPRAMIDE HCL INJ 5 MG/ML 2 ML VIAL IV STA (14:36)
[2023-07-28] MEDS ORDERED: diphenhydrAMINE 50 MG/ML VIAL IV STA (14:36)
--- NOTE | 2023-07-28 14:52 | Hospitalist Progress Note ---
Date of Service July 28, 2023 Assessment & Plan (1) Sepsis: Plan: With tachycardia, fever, and source UTI with presumed pyelonephritis. With right ureteral obstructing stone With septicemia with E. coli bacteremia in 4/4 bottles from initial blood cultures-resistant to adelita quinolones and Bactrim Urine culture with E. coli resistant to fluoroquinolones and Bactrim Repeat blood cultures from 07/27-remain no growth to date Blood pressures are normal, lactate normal. Continues with fevers which is not unexpected with pyelonephritis and bacteremia despite being on proper antibiotics S/p right ureteral stent placement with urology urgently on 07/26 Mildly elevated LFTs likely secondary to sepsis and now improved-CT abdomen/pelvis only with hepatic cysts but no other abnormalities -Continue ceftriaxone until defervesced and blood cultures on repeat remain no growth and then convert to oral antibiotics for total of 14 days -Continue Tylenol as needed for fever -Give 1 L normal saline bolus and follow-up with 2 L of Plasma-Lyte at 125 MLS per hour for maintenance fluids given soft blood pressures and mild tachycardia with fever -Follow CBC, CMP, and procalcitonin in the morning -Follow repeat blood cultures to ensure remain sterile (2) Pyelonephritis of right kidney: Plan: As above (3) Migraine: Plan: With severe migraine starting on the evening of 07/27 related to sepsis and fever and dehydration Starting IV fluids Give IV Toradol, Reglan, and Benadryl as a migraine cocktail IV Dilaudid ordered at patient's request in case the previous medications do not work Is on Topamax possibly for migraine prevention (4) Right ureteral stone: Plan: As above Follow-up with urology after discharge for ureteral stent and stone management With some urinary retention related to bladder prolapse, opioid use, and oxybutynin contributing -Discontinue oxybutynin -Continue Pyridium as needed for pain -Started tamsulosin at bedtime -Oxycodone as needed for pain (5) Urinary retention: Plan: With urinary retention as noted above Follow and straight cath as needed Pessary back in place (6) Hyponatremia: Plan: Sodium 129 on admission, most likely due to poor p.o. intake/hypovolemia from sepsis-initially resolved after IV fluids, but down again slightly to 134 Giving further IV fluids as above Follow BMP (7) Hypomagnesemia: Plan: Magnesium 1.6 on admission. Magnesium replaced and now level is normal Follow magnesium level in the morning (8) Hypokalemia: Plan: Potassium 2.9 on admission Potassium was replaced and was normal but now is low again. Likely due to acute illness and poor p.o. intake Give potassium chloride 40 mill equivalents p.o. x 1 and continue balanced IV fluids as above Follow BMP (9) Elevated troponin: Plan: No chest pain or shortness of breath to suggest acute coronary syndrome. Initial troponin was elevated at 116 and quickly improved down to 16.9 EKG without ischemic changes Suspected secondary demand ischemia in the setting of sepsis Checked ECHO which showed no wall motion abnormalities and a preserved EF, trace aortic regurgitation Continue to monitor on telemetry-no arrhythmias (10) Anxiety disorder: Plan: Continue her usual Xanax dosing every 4 hours as needed with max of 3 doses per day similar to how she takes it at home Continue Lexapro 10 mg p.o. daily Emotionally labile here in the hospital secondary to current medical condition (11) Chronic low back pain: Plan: Continue home dose of oxycodone 10 mg every 6 hours as needed Continue senna/docusate alternating with senna for opioid-induced constipation Continue home Soma Continue gabapentin Presumably Topamax is for weight loss as she sees a bariatrics clinic and also has been prescribed phentermine in the past-of note, Topamax can cause kidney stones-consider discontinuing this Plan VTE prophylaxis - Lovenox 40 mg subcu daily Disposition -continued stay in PCU Admission and Anticipated Discharge Date Admission Date: July 26, 2023 Subjective Patient extremely tearful. Reports she has had a severe migraine that started last night. She is scared that her infection is worsening because she continues to have fevers today. is scared that her infection is worsening because she continues to have fevers today. She asks if a person can live with 1 kidney and I assured her that she will not be having her kidney removed-she fears that she will need another surgery and thought the surgery would be related to removal of her kidney. She is asking for a "heavy hitter" in regards to strong pain medicine for her migraine. She is also stressed out that she was retaining urine today and had to be straight catheterized. We discussed that the use of opioids and oxybutynin as well as her bladder prolapse could be contributing. She did have her pessary with her and placed it back into the vagina after she was catheterized in the bladder. Telemetry with normal sinus rhythm and rates in the 80s Physical Exam Constitutional: WD/WN, vitals as above Neck: trachea midline, no thyromegaly Respiratory: normal respiratory effort, lungs clear to auscultation Cardiovascular: RRR, no murmur, no edema Chest (Breasts): Chest: normal inspection of chest Gastrointestinal (Abdomen): Inspection/Auscultation: normal bowel sounds; abdomen not distended Percussion/Palpation: + abdomen tender (In right lower quadrant and suprapubic region) and abdomen soft; no guarding Musculoskeletal: Extremities: extremities normal to inspection; no cyanosis and no clubbing Skin: no rashes, warm and dry Neurologic: moves all extremities and awake; no focal motor deficits Psychiatric: Orientation: alert, oriented x 3 and cooperative Affect: + anxious affect, + tearful affect and + labile affect Mood: + anxious mood Lymphatic: no lymphedema Results & Data Results & Data Vital Signs (Past 12 Hours) Vital Signs Temp Pulse Resp BP Pulse Ox O2 Del Method 07/28/23 09:40 38.4 C H 07/28/23 07:28 36.9 C 87 20 113/71 97 Room Air 07/28/23 05:15 37.2 C 93 H 22 145/90 H 97 Room Air 07/28/23 03:52 36.5 C 07/28/23 03:34 77 22 126/80 98 Room Air 07/28/23 02:57 36.6 C 77 14 109/73 98 Room Air Laboratory Results CBC, BMP, blood cultures, urine culture reviewed Diagnostic Findings Echocardiogram with LVEF 60-65%, no wall motion abnormalities, trace AI PG Care Time/CCT Total # of Minutes Spent Total Time Spent with Patient: Total time spent is greater than 50% in coordination of care (as documented) at patient's floor/unit and/or counseling patient: Coding Level of Care Code 35633 SUB INP/OBS CARE 3/50MIN Diagnoses Sepsis A41.9 Pyelonephritis of right kidney N12 Migraine G43.909 Right ureteral stone N20.1 Urinary retention R33.9 Hyponatremia E87.1 Hypomagnesemia E83.42 Hypokalemia E87.6 Elevated troponin R79.89 Anxiety disorder F41.9 Chronic low back pain M54.5; G89.29
[2023-07-28] MEDS ORDERED: SODIUM CHLORIDE 0.9% 1,000 ML IV ONE (15:42)
[2023-07-28] MEDS: cefTRIAXone SODIUM 2,000 MG in DEXTROSE 5 % MINI-B 50 ML IV SCH (19:46)
[2023-07-28] MEDS: PLASMA-LYTE A 1,000 ML IV SCH (19:46)
[2023-07-28] MEDS: ENOXAPARIN INJ 40 MG/0.4 ML SYR SQ SCH (20:49)
[2023-07-28] MEDS: SENNA 8.6 MG TAB PO SCH (20:50)
[2023-07-28] MEDS: HYDROmorphone INJ 0.5 MG/0.5 ML SYR IV PRN (20:51)
[2023-07-28] MEDS: TAMSULOSIN HCL 0.4 MG CAP PO SCH (20:55)
[2023-07-29] MEDS: PLASMA-LYTE A 1,000 ML IV SCH (02:46)
[2023-07-29] MEDS: CARISOPRODOL 350 MG TABLET PO PRN ×3 (03:56→20:06)
[2023-07-29] MEDS: oxyCODONE HCL IR 5 MG TAB (IMMEDIATE RELEASE) PO PRN ×2 (03:56→17:59)
[2023-07-29] MEDS: ONDANSETRON INJ 2 MG/ML 2 ML VIAL IV PRN ×3 (03:57→19:37)
[2023-07-29] MEDS: PROMETHAZINE HCL 25 MG TAB PO PRN (05:15)
[2023-07-29 07:39] LABS: Basophils # (auto) 0.03 K/uL (0.00-0.20); Basophils % (auto) 0.3 %; Eosinophils % (auto) 1.1 %; Hematocrit (blood only) 29.7 % (37.0-47.0); Immature Granulocytes # (auto) 0.18 K/uL (0.01-0.20); Immature Granulocytes % (auto) 1.9 %; Lymphocytes # (auto) 1.62 K/uL (1.20-3.40); Lymphocytes % (auto) 17.1 %; Mean Corpuscular Hemoglobin 31.8 pg (25.0-34.0); Mean Corpuscular Hgb Conc 33.7 g/dL (32.0-36.0); Mean Corpuscular Volume 94.6 fL (80.0-100.0); Mean Platelet Volume 9.1 fL (9.4-12.4); Monocytes # (auto) 0.81 K/uL (0.11-0.59); Monocytes % (auto) 8.5 %; Neutrophils # (auto) 6.75 K/uL (1.40-6.50); Neutrophils % (auto) 71.1 %; Platelet Count 241 K/uL (130-400); RDW Coefficient of Variation 13.2 % (11.5-14.5); RDW Standard Deviation 45.7 fL (36.4-46.3); Red Blood Count 3.14 M/uL (4.20-5.40); White Blood Count 9.49 K/ul (4.8-10.8)
[2023-07-29 08:05] LABS: Albumin Globulin Ratio 1.1 (0.9-2); Albumin Level 3.2 gm/dl (3.4-5.0); BUN Creatinine Ratio 14.1 (10-20); Bilirubin,Total 0.4 mg/dl (0.2-1.0); Calcium 8.1 mg/dl (8.6-10.3); Creatinine Clr Calc Pharmacy 100.8 ml/min; Est GFR (African American) 118.1 ml/min; Est GFR (Non-African American) 101.9 ml/min; Globulin 2.9 gm/dl (2.5-4.0); Magnesium 1.7 mg/dl (1.7-2.4); Potassium 3.5 mmol/L (3.5-5.1); Total Protein 6.1 gm/dl (6.0-8.3)
[2023-07-29] MEDS: HYDROmorphone INJ 0.5 MG/0.5 ML SYR IV PRN ×2 (09:18→19:38)
[2023-07-29] MEDS: ESCITALOPRAM OXALATE 10 MG TAB PO SCH (09:28)
[2023-07-29] MEDS: GABAPENTIN 600 MG TAB PO SCH ×2 (09:29→20:07)
[2023-07-29] MEDS: ACETAMINOPHEN 325 MG TAB PO PRN (09:29)
[2023-07-29] MEDS: TOPIRAMATE 100 MG TAB PO SCH (09:29)
[2023-07-29] MEDS: ALPRAZolam 0.5 MG TABLET PO PRN ×2 (09:31→20:06)
[2023-07-29] MEDS: PHENAZOPYRIDINE HCL 200 MG TAB PO PRN (10:23)
--- NOTE | 2023-07-29 11:00 | Electrocardiogram Report ---
Test Reason : Blood Pressure : / mmHG Vent. Rate : 095 BPM Atrial Rate : 095 BPM P-R Int : 128 ms QRS Dur : 080 ms QT Int : 356 ms P-R-T Axes : 056 059 045 degrees QTc Int : 447 ms Normal sinus rhythm Possible Left atrial enlargement Nonspecific ST abnormality When compared with ECG of 07-JUN-2023 21:07, No significant change was found Confirmed by Kevin oRjas ([id number]) on 07/29/2023 10:59:53 AM Referred By: REFERRED SELF Confirmed By:Kevin Rojas
[2023-07-29] MEDS: MAGNESIUM SULFATE / D5W 1 GM/100 ML BAG IV SCH ×2 (11:57→14:02)
--- NOTE | 2023-07-29 16:29 | Hospitalist Progress Note ---
Date of Service July 29, 2023 Assessment & Plan (1) Sepsis: Plan: With tachycardia, fever, and source UTI with right-sided pyelonephritis. With right ureteral obstructing stone With septicemia with E. coli bacteremia in 4/4 bottles from initial blood cultures-resistant to fluoroquinolones and Bactrim Urine culture with E. coli resistant to fluoroquinolones and Bactrim Repeat blood cultures from 07/27-remain no growth to date Blood pressures are normal, lactate normal. Fevers have now resolved and tachycardia improved after further IV fluids S/p right ureteral stent placement with urology urgently on 07/26 Mildly elevated LFTs likely secondary to sepsis and now improved-CT abdomen/pelvis only with hepatic cysts but no other abnormalities on admission Procalcitonin is now down to normal Repeated CT abdomen/pelvis on 07/29 at patient's request due to right-sided abdominal pain-again shows right-sided pyelonephritis shows right-sided pyelonephritis due to persistent right-sided abdominal pain and shows expected right-sided pyelonephritis and mild hydronephrosis with stent in place and 4 mm distal ureteral stone -Continue ceftriaxone until defervesced and blood cultures on repeat remain no growth and then convert to oral antibiotics for total of 14 days -Continue Tylenol as needed for fever -No further IV fluids needed -Follow CBC, CMP, and magnesium in the morning-keep electrolytes replete-give IV magnesium today -Follow repeat blood cultures to ensure remain sterile -Continue pain control with oxycodone, IV Dilaudid, IV Toradol, and Tylenol as needed (2) Pyelonephritis of right kidney: Plan: As above (3) Migraine: Plan: With severe migraine starting on the evening of 07/27 related to sepsis and fever and dehydration Much improved now with IV Toradol, Reglan, Benadryl and IV fluids Is on Topamax possibly for migraine prevention (4) Right ureteral stone: Plan: As above Follow-up with urology after discharge for ureteral stent and stone management With some urinary retention related to bladder prolapse, opioid use, and oxybu tynin contributing -Discontinued oxybutynin and she replaced her pessary after straight catheterization-now no further urinary retention and bladder prolapse is resolved -Continue Pyridium as needed for pain -Continue tamsulosin at bedtime -Oxycodone and Dilaudid as needed for pain (5) Urinary retention: Plan: With urinary retention as noted above Follow and straight cath as needed Pessary back in place (6) Hyponatremia: Plan: Sodium 129 on admission, most likely due to poor p.o. intake/hypovolemia from sepsis-resolved with IV fluids Follow BMP (7) Hypomagnesemia: Plan: Magnesium 1.6 on admission. Magnesium replaced and now low normal but with migraine headache-give IV magnesium 2 g Follow magnesium level in the morning (8) Hypokalemia: Plan: Potassium 2.9 on admission -Likely due to acute illness and poor p.o. intake Potassium was replaced and now normal Follow BMP (9) Elevated troponin: Plan: No chest pain or shortness of breath to suggest acute coronary syndrome. Initial troponin was elevated at 116 and quickly improved down to 16.9 EKG without ischemic changes Suspected secondary demand ischemia in the setting of sepsis Checked ECHO which showed no wall motion abnormalities and a preserved EF, trace aortic regurgitation Continue to monitor on telemetry-no arrhythmias (10) Anxiety disorder: Plan: Continue her usual Xanax dosing every 4 hours as needed with max of 3 doses per day similar to how she takes it at home Continue Lexapro 10 mg p.o. daily Emotionally labile here in the hospital secondary to current medical condition (11) Chronic low back pain: Plan: Continue home dose of oxycodone 10 mg every 6 hours as needed Continue senna/docusate alternating with senna for opioid-induced constipation- she is moving her bowels Continue home Soma Continue gabapentin Plan VTE prophylaxis - Lovenox 40 mg subcu daily Disposition -continued stay in PCU, slow improvement due to acute on chronic pain issues Admission and Anticipated Discharge Date Admission Date: July 26, 2023 Subjective Patient reports ongoing right-sided abdominal pain and is requesting to have a repeat CT scan. She feels her bladder emptying is improved since putting the pessary back in place. Her migraine headache is improved but not completely gone. Telemetry with normal sinus rhythm and normal rates Physical Exam Constitutional: WD/WN, vitals as above Neck: trachea midline, no thyromegaly Respiratory: normal respiratory effort, lungs clear to auscultation Cardiovascular: RRR, no murmur, no edema Chest (Breasts): Chest: normal inspection of chest Gastrointestinal (Abdomen): normal bowel sounds, soft, nontender, no hepatosplenomegaly Inspection/Auscultation: normal bowel sounds; abdomen not distended Percussion/Palpation: + abdomen tender (In right mid to upper abdomen) and abdomen soft; no guarding Musculoskeletal: Extremities: extremities normal to inspection; no cyanosis and no clubbing Skin: no rashes, warm and dry Neurologic: moves all extremities and awake; no focal motor deficits Psychiatric: Orientation: alert, oriented x 3 and cooperative Mood: + anxious mood Lymphatic: no lymphedema Results & Data Results & Data Vital Signs (Past 12 Hours) Vital Signs Temp Pulse Resp BP Pulse Ox O2 Del Method 07/29/23 11:00 36.9 C 112 H 20 129/64 95 Room Air 07/29/23 07:30 37.0 C 107 H 18 135/88 93 Room Air Laboratory Results CBC, CMP, procalcitonin, magnesium, and blood cultures reviewed PG Care Time/CCT Total # of Minutes Spent Total Time Spent with Patient: Total time spent is greater than 50% in coordination of care (as documented) at patient's floor/unit and/or counseling patient: Coding Level of Care Code 38654 SUB INP/OBS CARE 3/50MIN Diagnoses Sepsis A41.9 Pyelonephritis of right kidney N12 Migraine G43.909 Right ureteral stone N20.1 Urinary retention R33.9 Hyponatremia E87.1 Hypomagnesemia E83.42 Hypokalemia E87.6 Elevated troponin R79.89 Anxiety disorder F41.9 Chronic low back pain M54.5; G89.29
--- NOTE | 2023-07-29 17:30 | CT Scan Report ---
ABDOMEN AND PELVIS CT WITHOUT CONTRAST CT DOSE: 1155.43 mGy.cm HISTORY: Acute right-sided flank pain with ureteral stent Rt uret stent,UTI,bacteremia,assess for ab scess TECHNIQUE: Multiaxial CT images of the abdomen and pelvis were performed without contrast. A dose lo wering technique was utilized adhering to the principles of ALARA. COMPARISON STUDY: CT 07/26/2023 FINDINGS: Small pericardial effusion. Trace right pleural effusion. Mild coronary artery calcificatio ns. Mild right hemidiaphragmatic elevation. Subsegmental bibasilar atelectasis. No free air. The sple en measures 13.3 cm in length. Unremarkable pancreas and adrenal glands. Contracted gallbladder. Scat tered hepatic cysts redemonstrated measuring up to approximately 4 cm. There are at least 6 nonobstructing calculi left kidney measuring up to 3 mm. 4 mm nonobstructing ronny culus in the interpolar right kidney. Heterogeneous attenuation of the right kidney which is moderate ly enlarged with moderate perinephric and periureteral stranding. There is mild persistent hydrourete ronephrosis with a ureteral stent in place. A 4 mm calculus of the distal right ureter on image 302. Vaginal pessary. Partial distention of the urinary bladder. Atherosclerosis of the aorta. Nonspecific mildly enlarged retroperitoneal lymph nodes are again seen measuring up to 11 mm in the periaortic d istribution. There is no bowel obstruction. Trace ascites. Mild to moderate colonic fecal retention. Noninflamed a ppendix. Tiny fat filled umbilical hernia. Right hip arthroplasty. No acute fracture. IMPRESSION: 1. Mild persistent right-sided hydroureteronephrosis with right ureteral stent in place. There is a 4 mm calculus within the distal right ureter. 2. Asymmetric enlargement with heterogeneous attenuation of the right kidney is similar to prior whic h should be correlate with urinalysis to exclude pyelonephritis. 3. Nonobstructing left renal calculi. 4. Mild nonspecific retroperitoneal lymphadenopathy. Attention on follow-up recommended. 5. Trace pericardial and right pleural effusions. 6. Additional findings as above. ACT 112: Negative or not required by law. The above report was generated using voice recognition software. It may contain grammatical, syntax o r spelling errors. Electronically signed by: Alden Basilio M.D. 07/29/2023 5:27 PM
[2023-07-29] MEDS: cefTRIAXone SODIUM 2,000 MG in DEXTROSE 5 % MINI-B 50 ML IV SCH (19:43)
[2023-07-29] MEDS: DOCUSATE SODIUM/SENNA 50/8.6MG TAB PO SCH (20:07)
[2023-07-29] MEDS: TAMSULOSIN HCL 0.4 MG CAP PO SCH (20:07)
[2023-07-29] MEDS: ENOXAPARIN INJ 40 MG/0.4 ML SYR SQ SCH (20:07)
[2023-07-30] MEDS: ALPRAZolam 0.5 MG TABLET PO PRN ×2 (00:38→18:16)
[2023-07-30] MEDS: ACETAMINOPHEN 325 MG TAB PO PRN ×3 (01:40→21:30)
[2023-07-30] MEDS: ONDANSETRON INJ 2 MG/ML 2 ML VIAL IV PRN ×3 (01:40→16:22)
[2023-07-30] MEDS: HYDROmorphone INJ 0.5 MG/0.5 ML SYR IV PRN ×3 (01:40→21:30)
[2023-07-30] MEDS: PHENAZOPYRIDINE HCL 200 MG TAB PO PRN ×2 (04:39→18:33)
[2023-07-30] MEDS: KETOROLAC TROMETHAMINE 15 MG/ML VIAL IV PRN ×2 (05:10→16:22)
[2023-07-30] MEDS: PROMETHAZINE HCL 25 MG TAB PO PRN (05:12)
[2023-07-30 08:27] LABS: Basophils # (auto) 0.05 K/uL (0.00-0.20); Basophils % (auto) 0.5 %; Eosinophils # (auto) 0.27 K/uL (0.00-0.50); Eosinophils % (auto) 2.7 %; Hematocrit (blood only) 32.7 % (37.0-47.0); Hemoglobin 10.4 g/dl (12.0-16.0); Immature Granulocytes # (auto) 0.31 K/uL (0.01-0.20); Immature Granulocytes % (auto) 3.1 %; Lymphocytes # (auto) 2.28 K/uL (1.20-3.40); Lymphocytes % (auto) 22.5 %; Mean Corpuscular Hgb Conc 31.8 g/dL (32.0-36.0); Mean Corpuscular Volume 97.3 fL (80.0-100.0); Mean Platelet Volume 8.9 fL (9.4-12.4); Monocytes # (auto) 0.81 K/uL (0.11-0.59); Neutrophils # (auto) 6.41 K/uL (1.40-6.50); Neutrophils % (auto) 63.2 %; Platelet Count 322 K/uL (130-400); RDW Coefficient of Variation 13.2 % (11.5-14.5); RDW Standard Deviation 47.4 fL (36.4-46.3); Red Blood Count 3.36 M/uL (4.20-5.40); White Blood Count 10.13 K/ul (4.8-10.8)
[2023-07-30 08:41] LABS: Albumin Level 3.5 gm/dl (3.4-5.0); BUN Creatinine Ratio 11.8 (10-20); Bilirubin Direct 0.1 mg/dl (0-0.2); Bilirubin,Total 0.5 mg/dl (0.2-1.0); Calcium 9.2 mg/dl (8.6-10.3); Creatinine Clr Calc Pharmacy 94.9 ml/min; Est GFR (African American) 115.7 ml/min; Est GFR (Non-African American) 99.9 ml/min; Magnesium 2.1 mg/dl (1.7-2.4); Potassium 3.8 mmol/L (3.5-5.1); Total Protein 6.7 gm/dl (6.0-8.3)
[2023-07-30] MEDS: ESCITALOPRAM OXALATE 10 MG TAB PO SCH (09:45)
[2023-07-30] MEDS: GABAPENTIN 600 MG TAB PO SCH ×2 (09:46→20:07)
[2023-07-30] MEDS: TOPIRAMATE 100 MG TAB PO SCH (09:47)
--- NOTE | 2023-07-30 12:58 | Hospitalist Progress Note ---
Date of Service July 30, 2023 Assessment & Plan (1) Sepsis: Plan: With tachycardia, fever, and source UTI with right-sided pyelonephritis. With right ureteral obstructing stone With septicemia with E. coli bacteremia in 4/4 bottles from initial blood cultures-resistant to fluoroquinolones and Bactrim Urine culture with E. coli resistant to fluoroquinolones and Bactrim Repeat blood cultures from 07/27-remain no growth to date Blood pressures are normal, lactate normal. Fevers have now resolved and tachycardia improved after further IV fluids S/p right ureteral stent placement with urology urgently on 07/26 Mildly elevated LFTs likely secondary to sepsis and now improved-CT abdomen/pelvis only with hepatic cysts but no other abnormalities on admission Procalcitonin is now down to normal Repeated CT abdomen/pelvis on 07/29 at patient's request due to right-sided abdominal pain-again shows right-sided pyelonephritis shows right-sided pyelonephritis due to persistent right-sided abdominal pain and shows expected right-sided pyelonephritis and mild hydronephrosis with stent in place and 4 mm distal ureteral stone -Continue ceftriaxone until defervesced and blood cultures on repeat remain no growth and then convert to oral antibiotics for total of 14 days -Continue Tylenol as needed for fever -No further IV fluids needed -Follow CBC, CMP -Follow repeat blood cultures to ensure remain sterile -Continue pain control with oxycodone, IV Dilaudid, IV Toradol, and Tylenol as needed Patient is still using IV Dilaudid. Treat constipation (2) Pyelonephritis of right kidney: Plan: As above (3) Migraine: Plan: With severe migraine starting on the evening of 07/27 related to sepsis and fever and dehydration Much improved now with IV Toradol, Reglan, Benadryl and IV fluids Is on Topamax possibly for migraine prevention (4) Right ureteral stone: Plan: As above Follow-up with urology after discharge for ureteral stent and stone management With some urinary retention related to bladder prolapse, opioid use, and oxybutynin contributing -Discontinued oxybutynin and she replaced her pessary after straight catheterization-now no further urinary retention and bladder prolapse is resolved -Continue Pyridium as needed for pain -Continue tamsulosin at bedtime -Oxycodone and Dilaudid as needed for pain (5) Urinary retention: Plan: With urinary retention as noted above Follow and straight cath as needed Pessary back in place (6) Hyponatremia: Plan: Sodium 129 on admission, most likely due to poor p.o. intake/hypovolemia from sepsis-resolved with IV fluids Follow BMP (7) Hypomagnesemia: Plan: Magnesium 1.6 on admission. Magnesium replaced and now low normal but with migraine headache-give IV magnesium 2 g (8) Hypokalemia: Plan: Potassium 2.9 on admission -Likely due to acute illness and poor p.o. intake Potassium was replaced and now normal Follow BMP (9) Elevated troponin: Plan: No chest pain or shortness of breath to suggest acute coronary syndrome. Initial troponin was elevated at 116 and quickly improved down to 16.9 EKG without ischemic changes Suspected secondary demand ischemia in the setting of sepsis Checked ECHO which showed no wall motion abnormalities and a preserved EF, trace aortic regurgitation Continue to monitor on telemetry-no arrhythmias (10) Anxiety disorder: Plan: Continue her usual Xanax dosing every 4 hours as needed with max of 3 doses per day similar to how she takes it at home Continue Lexapro 10 mg p.o. daily Emotionally labile here in the hospital secondary to current medical condition (11) Chronic low back pain: Plan: Continue home dose of oxycodone 10 mg every 6 hours as needed Continue senna/docusate alternating with senna for opioid-induced constipation- she is moving her bowels Continue home Soma Continue gabapentin Plan VTE prophylaxis - Lovenox 40 mg subcu daily Disposition -continued stay in PCU, slow improvement due to acute on chronic pain issues Admission and Anticipated Discharge Date Admission Date: July 26, 2023 Subjective Patient says that her migraine is slightly better today. She still gets tearful easily. She is constipated and is requesting MiraLAX. Review of Systems Review of Systems: All systems reviewed & are unremarkable except as noted in Subjective Physical Exam Physical Exam: General: Awake, conversant Heart: S1, S2/regular rate and rhythm, no murmur rubs or gallops Lungs: Clear to auscultation bilaterally. Normal effort Abdomen: Soft/nontender/nondistended. No hepatosplenomegaly Extremities: No clubbing/cyanosis. No edema Behavior: Appropriate, cooperative Results & Data Results & Data Vital Signs (Past 12 Hours) Vital Signs Temp Pulse Pulse Resp BP Pulse Ox O2 Del Method 07/30/23 12:19 36.7 C 74 19 114/73 96 Room Air 07/30/23 09:08 36.7 C 79 17 112/77 94 Room Air 07/30/23 07:36 74 07/30/23 03:00 36.9 C 71 21 129/95 93 Room Air Laboratory Results Abnormal lab results 07/30/23 Range/Units 07:59 RBC 3.36 L (4.20-5.40) M/uL Hgb 10.4 L (12.0-16.0) g/dl Hct 32.7 L (37.0-47.0) % MCHC 31.8 L (32.0-36.0) g/dL RDW Std Deviation 47.4 H (36.4-46.3) fL MPV 8.9 L (9.4-12.4) fL Borden # (Auto) 0.81 H (0.11-0.59) K/uL Immature Gran # (Auto) 0.31 H (0.01-0.20) K/uL Glucose 110 H (70-99(Fasting)) mg/dl AST 12 L (13-39) U/L Alkaline Phosphatase 136 H (34-104) U/L PG Care Time/CCT Total # of Minutes Spent Total Time Spent with Patient: Total time spent is greater than 50% in coordination of care (as documented) at patient's floor/unit and/or counseling patient: Coding Level of Care Code 61876 SUB INP/OBS CARE 2/35MIN Diagnoses Sepsis A41.9 Pyelonephritis of right kidney N12 Migraine G43.909 Right ureteral stone N20.1 Urinary retention R33.9 Hyponatremia E87.1 Hypomagnesemia E83.42 Hypokalemia E87.6 Elevated troponin R79.89 Anxiety disorder F41.9 Chronic low back pain M54.5; G89.29
[2023-07-30] MEDS: POLYETHYLENE (MIRALAX) 17 GM PACK PO PRN (16:23)
[2023-07-30] MEDS: cefTRIAXone SODIUM 2,000 MG in DEXTROSE 5 % MINI-B 50 ML IV SCH (18:16)
[2023-07-30] MEDS: TAMSULOSIN HCL 0.4 MG CAP PO SCH (20:07)
[2023-07-30] MEDS: SENNA 8.6 MG TAB PO SCH (20:07)
[2023-07-30] MEDS: CARISOPRODOL 350 MG TABLET PO PRN (20:07)
[2023-07-30] MEDS: ENOXAPARIN INJ 40 MG/0.4 ML SYR SQ SCH (20:08)
[2023-07-31] MEDS: KETOROLAC TROMETHAMINE 15 MG/ML VIAL IV PRN ×4 (00:03→22:32)
[2023-07-31] MEDS: HYDROmorphone INJ 0.5 MG/0.5 ML SYR IV PRN (02:32)
[2023-07-31] MEDS: PROMETHAZINE HCL 25 MG TAB PO PRN (02:32)
[2023-07-31] MEDS: CARISOPRODOL 350 MG TABLET PO PRN ×3 (02:37→20:03)
[2023-07-31] MEDS: ALPRAZolam 0.5 MG TABLET PO PRN ×2 (02:37→20:03)
[2023-07-31 06:42] LABS: BUN Creatinine Ratio 17.1 (10-20); Calcium 8.9 mg/dl (8.6-10.3); Creatinine Clr Calc Pharmacy 92.2 ml/min; Est GFR (African American) 114.6 ml/min; Est GFR (Non-African American) 98.9 ml/min; Potassium 4.1 mmol/L (3.5-5.1)
[2023-07-31] MEDS: ESCITALOPRAM OXALATE 10 MG TAB PO SCH (09:18)
[2023-07-31] MEDS: TOPIRAMATE 100 MG TAB PO SCH (09:18)
[2023-07-31] MEDS: GABAPENTIN 600 MG TAB PO SCH ×2 (09:18→20:03)
[2023-07-31] MEDS: ONDANSETRON INJ 2 MG/ML 2 ML VIAL IV PRN ×2 (09:32→20:03)
[2023-07-31] MEDS: ACETAMINOPHEN 325 MG TAB PO PRN ×2 (09:33→18:13)
[2023-07-31] MEDS: POLYETHYLENE (MIRALAX) 17 GM PACK PO PRN (10:28)
[2023-07-31] MEDS: PHENAZOPYRIDINE HCL 200 MG TAB PO PRN ×2 (11:22→18:13)
--- NOTE | 2023-07-31 12:40 | Hospitalist Progress Note ---
Date of Service July 31, 2023 Assessment & Plan (1) Sepsis: Plan: With tachycardia, fever, and source UTI with right-sided pyelonephritis. With right ureteral obstructing stone With septicemia with E. coli bacteremia in 4/4 bottles from initial blood cultures-resistant to fluoroquinolones and Bactrim Urine culture with E. coli resistant to fluoroquinolones and Bactrim Repeat blood cultures from 07/27-remain no growth to date Blood pressures are normal, lactate normal. Fevers have now resolved and tachycardia improved after further IV fluids S/p right ureteral stent placement with urology urgently on 07/26 Mildly elevated LFTs likely secondary to sepsis and now improved-CT abdomen/pelvis only with hepatic cysts but no other abnormalities on admission Procalcitonin is now down to normal Repeated CT abdomen/pelvis on 07/29 at patient's request due to right-sided abdominal pain-again shows right-sided pyelonephritis shows right-sided pyelonephritis due to persistent right-sided abdominal pain and shows expected right-sided pyelonephritis and mild hydronephrosis with stent in place and 4 mm distal ureteral stone -Switch from IV ceftriaxone to p.o. Keflex today. Plan to treat for 14 days total -Continue Tylenol as needed for fever -No further IV fluids needed Repeat blood cultures have remained negative Explained to the patient that she is not spiking fevers with temperatures well below 38 Discontinue IV Dilaudid Continue oxycodone which she uses normally at home Continue IV Toradol and Tylenol as needed (2) Pyelonephritis of right kidney: Plan: As above (3) Migraine: Plan: With severe migraine starting on the evening of 07/27 related to sepsis and fever and dehydration Much improved now with IV Toradol, Reglan, Benadryl and IV fluids Is on Topamax possibly for migraine prevention (4) Right ureteral stone: Plan: As above Follow-up with urology after discharge for ureteral stent and stone management With some urinary retention related to bladder prolapse, opioid use, and oxybutynin contributing -Discontinued oxybutynin and she replaced her pessary after straight catheterization-now no further urinary retention and bladder prolapse is resolved -Continue Pyridium as needed for pain -Continue tamsulosin at bedtime -Oxycodone as needed for pain Discontinue Dilaudid. Patient agrees (5) Urinary retention: Plan: With urinary retention as noted above Follow and straight cath as needed Pessary back in place (6) Hyponatremia: Plan: Sodium 129 on admission, most likely due to poor p.o. intake/hypovolemia from sepsis-resolved with IV fluids (7) Hypomagnesemia: Plan: Magnesium 1.6 on admission. Magnesium replaced (8) Hypokalemia: Plan: Potassium 2.9 on admission -Likely due to acute illness and poor p.o. intake Potassium was replaced and now normal (9) Elevated troponin: Plan: No chest pain or shortness of breath to suggest acute coronary syndrome. Initial troponin was elevated at 116 and quickly improved down to 16.9 EKG without ischemic changes Suspected secondary demand ischemia in the setting of sepsis Checked ECHO which showed no wall motion abnormalities and a preserved EF, trace aortic regurgitation Continue to monitor on telemetry-no arrhythmias (10) Anxiety disorder: Plan: Continue her usual Xanax dosing every 4 hours as needed with max of 3 doses per day similar to how she takes it at home Continue Lexapro 10 mg p.o. daily Emotionally labile here in the hospital secondary to current medical condition (11) Chronic low back pain: Plan: Continue home dose of oxycodone 10 mg every 6 hours as needed Continue senna/docusate alternating with senna for opioid-induced constipation- she is moving her bowels Continue home Soma Continue gabapentin Plan VTE prophylaxis - Lovenox 40 mg subcu daily Full code Likely discharge tomorrow. Discontinued IV Dilaudid today and switched to p.o. antibiotics today Admission and Anticipated Discharge Date Admission Date: July 26, 2023 Subjective Patient says she feels much better overall. However she is still feeling hot and cold and thinks that she is spiking fevers. Review of Systems Review of Systems: All systems reviewed & are unremarkable except as noted in Subjective Physical Exam Physical Exam: General: Awake, conversant Heart: S1, S2/regular rate and rhythm, no murmur rubs or gallops Lungs: Clear to auscultation bilaterally. Normal effort Abdomen: Soft/nontender/nondistended. No hepatosplenomegaly Extremities: No clubbing/cyanosis. No edema Behavior: Appropriate, cooperative Results & Data Results & Data Vital Signs (Past 12 Hours) Vital Signs Temp Pulse Pulse Resp BP Pulse Ox O2 Del Method 07/31/23 07:52 37.5 C 98 H 18 130/89 98 Room Air 07/31/23 07:35 72 07/31/23 03:00 90 18 132/85 98 Room Air PG Care Time/CCT Total # of Minutes Spent Total Time Spent with Patient: Total time spent is greater than 50% in coordination of care (as documented) at patient's floor/unit and/or counseling patient: Coding Level of Care Code 76868 SUB INP/OBS CARE 2/35MIN Diagnoses Sepsis A41.9 Pyelonephritis of right kidney N12 Migraine G43.909 Right ureteral stone N20.1 Urinary retention R33.9 Hyponatremia E87.1 Hypomagnesemia E83.42 Hypokalemia E87.6 Elevated troponin R79.89 Anxiety disorder F41.9 Chronic low back pain M54.5; G89.29
[2023-07-31] MEDS: cephALEXin 500 MG CAP PO SCH ×3 (13:05→20:04)
[2023-07-31] MEDS: oxyCODONE HCL IR 5 MG TAB (IMMEDIATE RELEASE) PO PRN ×2 (14:50→21:18)
[2023-07-31] MEDS: LIDOCAINE 2% JELLY 5 ML TUBE EXT SCH ×2 (17:26→20:05)
[2023-07-31] MEDS: DOCUSATE SODIUM/SENNA 50/8.6MG TAB PO SCH (20:03)
[2023-07-31] MEDS: TAMSULOSIN HCL 0.4 MG CAP PO SCH (20:04)
[2023-07-31] MEDS: ENOXAPARIN INJ 40 MG/0.4 ML SYR SQ SCH (20:05)
[2023-07-31] MEDS ORDERED: LIDOCAINE 2% JELLY 5 ML TUBE EXT SCH (21:00)
[2023-08-01] MEDS: PHENAZOPYRIDINE HCL 200 MG TAB PO PRN (05:51)
[2023-08-01] MEDS: ACETAMINOPHEN 325 MG TAB PO PRN (06:11)
[2023-08-01] MEDS: ONDANSETRON INJ 2 MG/ML 2 ML VIAL IV PRN (06:12)
[2023-08-01] MEDS: ALPRAZolam 0.5 MG TABLET PO PRN (07:26)
[2023-08-01] MEDS: ESCITALOPRAM OXALATE 10 MG TAB PO SCH (09:18)
[2023-08-01] MEDS: TOPIRAMATE 100 MG TAB PO SCH (09:19)
[2023-08-01] MEDS: GABAPENTIN 600 MG TAB PO SCH (09:19)
[2023-08-01] MEDS: LIDOCAINE 2% JELLY 5 ML TUBE EXT SCH (09:19)
[2023-08-01] MEDS: cephALEXin 500 MG CAP PO SCH (10:48)
--- NOTE | 2023-08-01 11:04 | Urology Progress Note ---
Date of Service August 01, 2023 Assessment & Plan (1) Right ureteral stone: (2) Sepsis: (3) Acute UTI: Plan: Follow-up of an obstructing right UVJ stone, UTI/sepsis and bacteremia POD #6 status post emergent right stent placement with Dr. Romero Tolerating the stent with minimal bother. Afebrile and hemodynamically stable Urine and blood cultures grew E.coli. Repeat BCx prelim no growth x 48 hours. Plan to D/C when medically stable per primary team with course of appropriate PO antibiotics, Tamsulosin, prn Pyridium and prn pain medication for stent management Expected clinical course reviewed, all questions answered I have relayed her other concerns regarding home medications/antibiotics to her attending hospitalist. Will arrange outpatient follow-up with our service to set up definitive stone treatment after infection has been treated. will follow peripherally, contact our service with any additional issues or concerns. Admission and Anticipated Discharge Date Admission Date: July 26, 2023 Subjective Pt examined at bedside this AM. Awake, resting in bed on arrival. No acute distress. Tolerating the stent with minimal bother. Voiding spontaneously. Denies hematuria and dysuria. No fevers. Reports some chills. Requesting different antibiotic on discharge. Review of Systems Constitutional: as per Subjective / HPI Genitourinary: as per Subjective / HPI Physical Exam Constitutional: no acute distress Respiratory: no respiratory distress and no labored breathing Neurologic: moves all extremities and awake Psychiatric: Orientation: alert and oriented x 3 Affect: + anxious affect and + tearful affect Results & Data Vital Signs (Past 12 Hours) Vital Signs Temp Pulse Pulse Resp BP Pulse Ox O2 Del Method 08/01/23 10:52 37.1 C 87 18 141/77 H 94 08/01/23 07:36 77 08/01/23 03:30 37.1 C 87 18 141/77 H 94 Room Air 07/31/23 23:36 36.6 C 72 18 149/89 H 97 Room Air 07/31/23 23:05 96 H PG Care Time/CCT Total # of Minutes Spent Total Time Spent with Patient: Total time spent is greater than 50% in coordination of care (as documented) at patient's floor/unit and/or counseling patient: Coding Level of Care Code 71425 SUB INP/OBS CARE 2/35MIN Diagnoses Right ureteral stone N20.1 Sepsis A41.9 Acute UTI N39.0
--- NOTE | 2023-08-01 12:37 | Discharge Summary ---
Date of Service August 01, 2023 Admission HPI Per Admitting Provider Azalia Norrsi is a 53-year-old female who presents to the ER with dysuria, urgency and frequency since March. She reports being on 3 rounds of antibiotics in March although nothing on her external med list. Concern for urinary tract infection and prescribed ciprofloxacin on outpatient visit April 26, 2023. She has also been using Azo which initially was helping but no longer. For the last week she developed right sided abdominal pain and right CVA tenderness getting worse every day. Fevers for the last 3 days. She denies any respiratory or gastrointestinal symptoms. In the ER she was diagnosed with right obstructive UVJ stone with associated hydronephrosis and urinalysis concerning for infection. She is febrile with a temperature of 39.2 C. ER physician discussed with urology and planning to take to the OR for ureteral stent. Medicine consulted for admission and ongoing management of UTI sepsis with obstructing stone. Admission Exam Per Admitting Provider Constitutional: WD/WN, vitals as above Eyes: + anicteric sclerae; normal pupil size ENMT: external ear and nose normal, oropharynx normal Respiratory: normal respiratory effort, lungs clear to auscultation Cardiovascular: Rate/Rhythm: regular rhythm Heart Sounds: no murmur Extremities: normal capillary refill; no calf tenderness and no pedal edema Gastrointestinal (Abdomen): normal bowel sounds, soft, nontender, no hepatosplenomegaly Musculoskeletal: no cyanosis or clubbing, extremities motor strength 5/5 Skin: no rashes, warm and dry Neurologic: moves all extremities and awake; not confused Psychiatric: A+Ox3, euthymic affect Genitourinary: + CVA tenderness (Right) Principal Diagnosis Sepsis due to right-sided E. coli complicated pyelonephritis with E. coli bacteremia Right ureteral obstructing stone status post ureteric stent placement Migraine headache Electrolyte imbalances Anxiety disorder Discharge Exam General: Awake, conversant Heart: S1, S2/regular rate and rhythm, no murmur rubs or gallops Lungs: Clear to auscultation bilaterally. Normal effort Abdomen: Soft/nontender/nondistended. No hepatosplenomegaly Extremities: No clubbing/cyanosis. No edema Behavior: Appropriate, cooperative Discharge Data Allergies Allergy/AdvReac Type Severity Reaction Status Date / Time butorphanol Allergy Severe Hypertensio Verified 07/26/23 16:04 n amitriptyline Allergy Unknown . Verified 07/26/23 16:04 clarithromycin Allergy Unknown Gastrointestinal Verified 07/26/23 16:04 Upset Sulfa (Sulfonamide Allergy Unknown . Verified 07/26/23 16:04 Antibiotics) trimethobenzamide Allergy Unknown Rash Verified 07/26/23 16:04 duloxetine [From Cymbalta] Allergy Migraine Verified 07/26/23 16:04 rizatriptan [From Maxalt] Allergy Chest Verified 07/26/23 16:04 tightness nitrofurantoin AdvReac Mild GI upset Verified 07/26/23 16:04 [From Macrobid] and abdominal pain Consultations 07/26/23 15:04 Consult Urology Stat 07/26/23 15:21 ED Decision to Admit Stat Procedures Performed Operation Date: 07/26/23 09:15 Actual Procedures p Cystoscopy, Right Ureteral Stent Placement(Right) - Yoel Romero MD Ordered Studies 07/26/23 13:06 CT abd pelvis wo con Stat 07/26/23 15:45 FL retrograde includes kub Routine 07/29/23 16:27 CT abd pelvis wo con Urgent Hospital Course (1) Sepsis: With tachycardia, fever, and source UTI with right-sided pyelonephritis. With right ureteral obstructing stone With septicemia with E. coli bacteremia in 4/4 bottles from initial blood cultures-resistant to fluoroquinolones and Bactrim Urine culture with E. coli resistant to fluoroquinolones and Bactrim Repeat blood cultures from 07/27-remain no growth to date Blood pressures are normal, lactate normal. Fevers have now resolved and tachycardia improved after further IV fluids S/p right ureteral stent placement with urology urgently on 07/26 Mildly elevated LFTs likely secondary to sepsis and now improved-CT abd omen/pelvis only with hepatic cysts but no other abnormalities on admission Procalcitonin is now down to normal Repeated CT abdomen/pelvis on 07/29 at patient's request due to right-sided abdominal pain-again shows right-sided pyelonephritis shows right-sided pyelonephritis due to persistent right-sided abdominal pain and shows expected right-sided pyelonephritis and mild hydronephrosis with stent in place and 4 mm distal ureteral stone -Switch from IV ceftriaxone to p.o. Augmentin today. Plan to treat for 14 days total. Patient refused p.o. Keflex -Continue Tylenol as needed for fever Repeat blood cultures have remained negative Explained to the patient that she is not spiking fevers with temperatures well below 38 Discontinued IV Dilaudid Continue oxycodone which she uses normally at home Discharge to home today (2) Pyelonephritis of right kidney: As above (3) Migraine: With severe migraine starting on the evening of 07/27 related to sepsis and fever and dehydration Much improved now with IV Toradol, Reglan, Benadryl and IV fluids Is on Topamax possibly for migraine prevention (4) Right ureteral stone: As above Follow-up with urology after discharge for ureteral stent and stone management With some urinary retention related to bladder prolapse, opioid use, and oxybutynin contributing -Discontinued oxybutynin and she replaced her pessary after straight catheterization-now no further urinary retention and bladder prolapse is resolved -Continue Pyridium as needed for pain -Continue tamsulosin at bedtime -Oxycodone as needed for pain (5) Urinary retention: With urinary retention as noted above Follow and straight cath as needed Pessary back in place (6) Hyponatremia: Sodium 129 on admission, most likely due to poor p.o. intake/hypovolemia from sepsis-resolved with IV fluids (7) Hypomagnesemia: Magnesium 1.6 on admission. Magnesium replaced (8) Hypokalemia: Potassium 2.9 on admission -Likely due to acute illness and poor p.o. intake Potassium was replaced and now normal (9) Elevated troponin: No chest pain or shortness of breath to suggest acute coronary syndrome. Initial troponin was elevated at 116 and quickly improved down to 16.9 EKG without ischemic changes Suspected secondary demand ischemia in the setting of sepsis Checked ECHO which showed no wall motion abnormalities and a preserved EF, trace aortic regurgitation Continue to monitor on telemetry-no arrhythmias (10) Anxiety disorder: Continue her usual Xanax dosing every 4 hours as needed with max of 3 doses per day similar to how she takes it at home Continue Lexapro 10 mg p.o. daily Emotionally labile here in the hospital secondary to current medical condition (11) Chronic low back pain: Continue home dose of oxycodone 10 mg every 6 hours as needed Continue senna/docusate alternating with senna for opioid-induced constipation- she is moving her bowels Continue home Soma Continue gabapentin Plan VTE prophylaxis - Lovenox 40 mg subcu daily Full code Discharge today. Patient says that Keflex had triggered her migraine in the past. She refuses Keflex. Being discharged on p.o. Augmentin. Total Time Total Time Spent Total Time Spent (In Minutes): 35 Discharge Plan Discharge Items Patient Disposition: Home - Self-Care Reason For Visit: SEPSIS, URETEROLITHIASIS Discharge Diagnosis: Sepsis due to right-sided E. coli complicated pyelonephritis with E. coli bacteremia Right ureteral obstructing stone status post ureteric stent placement Migraine headache Electrolyte imbalances Anxiety disorder Condition on Discharge: Serious Activity: Resume your previous activity Non-emergency contact: Primary Care Provider Call non-emergency contact if: you have any medication questions, your symptoms worsen and your temperature is above 101.5 Follow-up/Referrals: Ladi Andrea CRNP [Primary Care Provider] - 08/09/23 10:30 am Yoel Romero MD [Physician] - (Dr. Romero's office will reach out to you directly to schedule your follow up. Thank you! ) Diet: Heart Healthy Addtl Attending Provider Instructions: Advised to follow-up with PCP in 1 week Advised to follow-up with urology in 10 days for further stent management and definitive stone treatment Addtl Human Factors Ergonomist Provider Instructions: The Urology office will contact you to arrange a follow-up visit. Please call the urology office at [phone] with any questions, concerns or need to reschedule appointments for any reason. We are happy to assist you. While you have a ureteral stent in place: Some discomfort is normal. Certain movements may trigger pain or a feeling that you need to urinate. You may also feel mild soreness or pressure before or during urination. Your urine may be slightly pink or red. This is due to bleeding caused by minor irritation from the stent. This may happen on and off while you have the stent, it is not harmful and is to be expected. Medication to help minimize discomfort or bladder spasms, or to prevent infection may be prescribed. Take this as directed. Drink plenty of fluids to help flush out your urinary tract. When to call [facility] [place] [phone]: Your urine contains heavy blood clots or you are unable to urinate You are constantly leaking urine Fever of 101F or higher, chills, nausea, or vomiting Your pain is not relieved with medication The end of the stent comes out of your urethra Pending Studies at Discharge: No Stand-Alone Forms: My [facility] Medications and DC Order Prescriptions: New amoxicillin-pot clavulanate 875-125 mg tablet 1 tab PO BID Qty: 14 0RF tamsulosin [Flomax] 0.4 mg capsule 0.4 mg PO HS Qty: 30 0RF Continued naloxone 4 mg/actuation spray,non-aerosol 4 mg INTNAS ONCE PRN (Reason: opioid overdose) Qty: 2 3RF Rx Instructions: spray 1 dose into ONE nostril; alternate nostrils w each dose until help arrives meperidine 50 mg/5 mL solution 100 mg PO TID PRN (Reason: migraines) Qty: 250 0RF Patient Comments: will begin after colonoscopy Rx Instructions: 100 mg PO every 8 hours as needed PRN; pt will hold oxycodone ondansetron 4 mg tablet,disintegrating 4 mg PO Q8H PRN (Reason: nausea and vomiting) Qty: 20 0RF alprazolam 0.5 mg tablet 0.5 mg PO .COMPLEX PRN (Reason: anxiety) Qty: 60 0RF Rx Instructions: 0.5 mg PO BID-TID PRN PDMP searched, okay to fill carisoprodol [Soma] 350 mg tablet 350 mg PO QID PRN (Reason: Muscle Spasm) Qty: 90 1RF oxycodone-acetaminophen 10-325 mg tablet 1 tab PO Q6H PRN (Reason: pain) Qty: 75 0RF phentermine 37.5 mg tablet 37.5 mg PO DAILY Qty: 30 2RF Hold Instructions: needs appt for refill promethazine 25 mg tablet 25 mg PO BID PRN (Reason: nausea and vomiting) 30 Days Qty: 60 3RF acetaminophen [Tylenol Extra Strength] 500 mg tablet 1,000 mg PO QAM PRN (Reason: Pain) sennosides 25 mg Tablet 25 mg PO HS Patient Comments: alternates with the senna-docusate sodium; uses at least 5-7 days per week sennosides-docusate sodium 8.6-50 mg Capsule 1 tab-cap PO HS Patient Comments: alternates with sennosides, at least 5-7 days per week topiramate 100 mg tablet 100 mg PO QAM escitalopram oxalate 20 mg tablet 10 mg PO QAM gabapentin 600 mg tablet 600 mg PO BID Discharge Orders: Discharge Order (Routine); Ordered 08/01/23 Ordered By: Moiz Reese Admission Data Admit Date/Time: 07/26/23 15:50 Attending Provider: Moiz Reese Admit Provider: Chriss García Primary Care Provider: Ladi Andrea Other Providers: Yoel Romero; Chriss García Other Interventions: Discharge Summary Assessment (RN) Last Done: 08/01/23 10:52 Coding Level of Care Code 75542 INP/OBS DISCH >30 MIN Diagnoses Sepsis A41.9 Pyelonephritis of right kidney N12 Migraine G43.909 Right ureteral stone N20.1 Urinary retention R33.9 Hyponatremia E87.1 Hypomagnesemia E83.42 Hypokalemia E87.6 Elevated troponin R79.89 Anxiety disorder F41.9 Chronic low back pain M54.5; G89.29
== END 2023-08-01 13:05 | disposition home or self-care (01) | DRG 854 ==
LOC: ED 12:28 → SUATTDRO 15:50 → 2E 16:21 → OR 16:21 → 2E 16:22 → SUATTDRO 16:22

== ENCOUNTER 2023-09-17 05:58 | Inpatient (IN) ==
--- NOTE | 2023-09-17 06:35 | Emergency Department Note ---
Impression & Plan Abnormal CT scan, Nausea, Abdominal pain ED Provider Note NAME: CHARLES FERREIRA AGE: 53 SEX: F : 1970 ARRIVES VIA: Ambulance INFORMANT: Patient, ED PROVIDER(S): Felix Bartholomew MD CHIEF COMPLAINT: Feeling generally unwell, nausea MEDICAL DECISION MAKING: Patient presents feeling generally unwell but states that it feels similar to when she had obstructing kidney stones and associated sepsis. IV was established and blood work was obtained along with urinalysis and CT abdomen pelvis. Patient was ordered IV fluids and IV Zofran. Patient has a normal white count H&H and platelet count. The patient's kidney function is unremarkable. BSG of 58. LFTs and lipase normal urinalysis without evidence of obvious blood or infection. Patient did have a CT abdomen pelvis which shows possible nonspecific colitis possibly ischemic. Patient has nonobstructive kidney stones. Wedge-shaped hypodensity of the right kidney may represent renal infarcts. Given this concern I did speak with the on-call hospitalist SKYLER Temple and patient was admitted by Dr. Wallace. I did speak with the patient and informed her of the findings and she is comfortable with the plan of care. Patient also states that her daughters do have a history of factor V but she does not believe that she was ever tested. Patient was ordered a heparin drip. Critical Care: I have personally spent 35 minutes of critical care time in direct management of this patient. This includes bedside care, interpretation of diagnostic studies, and testing, discussion with consultants, patient, and family members, and other require inpatient management activities. This 35 minutes is in excess of all separately billable procedures. Discussion w/ other healthcare providers: None Prior /Outside records reviewed: None Differential diagnosis: Nephrolithiasis, UTI, infection, dehydration, metabolic abnormality, hypo/hyperglycemia, electrolyte imbalance, anemia, UTI, pneumonia, thyroid dysfunction among others were considered. Diagnostics, as interpreted by me: ECG: None Cardiac monitoring: An order was placed for continuous cardiac monitoring. The monitor shows a rate of 82 with sinus rhythm. Patient was placed on pulse oximetry Medical decision rules: None Imaging studies: I informally interpreted the patient's CT abdomen pelvis which does show cysts of the liver with formal report to follow. HPI: Patient presents with feeling generally unwell and associated nausea. The patient states that this began around 2 AM this morning. The patient did feel internally very warm and had some associated chills but did not take a temperature at home. Patient states that this feels similar to when she had obstructing kidney stones and associated sepsis and thus was concerned and presented here. The patient did take Phenergan and Xanax prior to arrival the patient does admit to feeling anxious given her most recent hospitalization. The patient states that she had right-sided flank pain the previous time but then underwent a procedure for the kidney stone with Dr. Romero and then subsequently had a lithotripsy as an outpatient. The patient denies any urinary symptoms no blood in the urine or stool. The patient also relates that she does have a history of prolapse which she does use a pessary. The patient does follow with Dr. Zelaya patient believes that she may have associated prolapse of the vagina uterus and bladder. Patient states that with the pessary in place no major issues. The patient also states that occasionally she notices which she thinks may be a hernia in the left groin. No significant pain and not present when laying down. Patient did have recent bowel movement. PAST MEDICAL HISTORY: See Below PAST SURGICAL HISTORY: See Below SOCIAL HISTORY: See Below HOME MEDICATIONS: See Below ALLERGIES: See Below VITALS: See Below PHYSICAL EXAMINATION: GENERAL: NAD, non-toxic. EYE EXAM: Normal conjunctiva. PERRL, no anisocoria and EOM's grossly intact w/o pain. OROPHARYNX: Moist mucus membranes, grossly normal dentition. NECK: Trachea midline, no stridor. LUNGS: Clear to auscultation. Normal chest wall mechanics. HEART: NSR, no MRG. ABDOMEN: Abdomen soft, non-tender, no masses, no rebound or guarding. BACK: No CVA TTP. SKIN: No rashes and no bruising. UPPER EXTREMITIES: Upper extremities are grossly normal. LOWER EXTREMITIES: Grossly normal, no edema. NEURO EXAM: A&O x3, cranial nerves II-XII grossly intact, normal speech, moves all 4 extremities. Past Med/Surg History Medical History Hx of sepsis 07/2023, admitted to [facility]>"feeling well now" (discharged on Augmentin) Kidney stones Hx of migraines History of anesthesia reaction "sat up and started talking during her last colonoscopy 10 years ago" Anxiety Presence of pessary History of COVID-19 2021, mild symptoms, no current symptoms Prolapse of female pelvic organs Recurrent UTI NO CURRENT ISSUES HTN (hypertension) Asthma (11/02/12) no inhalers-"only happens with a panic attack" Cervical radiculopathy at C5 Fibromyalgia GERD (gastroesophageal reflux disease) Hyperlipidemia Spinal stenosis Degenerative disc disease Sciatica Herniated disc "numerous" Surgical History S/P cystoscopy with ureteral stent placement S/P endometrial ablation tubal done simultaneously per records History of surgery denervation of various spinal nerves. S/P epidural steroid injection Status post total hip replacement, right 2019- due to avascular necrosis History of Achilles tendon repair RIGHT History of surgery D&E History of tonsillectomy and adenoidectomy History of bilateral breast reduction surgery History of esophagogastroduodenoscopy (EGD) History of colonoscopy History of hemorrhoidectomy Family History Father Prostate cancer Bladder cancer Clotting disorder Hypertension Mother Lung cancer Denies family history of Ovarian cancer Diabetes Myocardial infarction Breast cancer Colorectal cancer Uterine cancer Social History Smoking Status: Current every day smoker Tobacco Type: E-cigarettes / Vaping Age Started Using Tobacco: 12; Cigarettes Per Day: vapes daily; has a rare cigarette; Second Hand Exposure: Yes (hx father smoked); Do You Dip or Chew Tobacco: No; Hx Alcohol Use: Yes Alcohol type: wine Hx Substance Use: Yes Last Used Substance Other:: occasionally smokes dtr's medical marijuana-08/02/23 Substance Use Type Other:: advised Preferred Language: Armenian Communication Ability: Effective Crown Buffer Required: No Beliefs That Will Affect Care: None marital status: Legally Current Living Situation: Family current occupational status: unemployed How many Children do You have: 3 Feels Safe at Home: Yes Childhood Exposure to Second-Hand Smoke: Yes Diet: regular caffeine: Yes Dental Care, Regularly: No Physical Activity Frequency: Daily Seatbelt Use: always Sunscreen Use: Yes Assistive Devices: Glasses Allergies Allergies Allergy/AdvReac Type Severity Reaction Status Date / Time butorphanol Allergy Severe Hypertensio Verified 08/19/23 10:37 n amitriptyline Allergy Unknown . Verified 08/19/23 10:37 clarithromycin Allergy Unknown Gastrointestinal Verified 08/19/23 10:37 Upset Sulfa (Sulfonamide Allergy Unknown . Verified 08/19/23 10:37 Antibiotics) trimethobenzamide Allergy Unknown Rash Verified 08/19/23 10:37 duloxetine [From Cymbalta] Allergy Migraine Verified 08/19/23 10:37 rizatriptan [From Maxalt] Allergy Chest Verified 08/19/23 10:37 tightness nitrofurantoin AdvReac Mild GI upset Verified 08/19/23 10:37 [From Macrobid] and abdominal pain Home Meds Home Medications Medication Instructions Recorded Confirmed acetaminophen 500 mg tablet 0 mg PO QAM PRN Pain 03/31/20 09/17/23 (Tylenol Extra Strength) sennosides 25 mg tablet 0 mg PO HS 04/20/23 09/17/23 sennosides 8.6 mg-docusate sodium 0 tab-cap PO HS 04/20/23 09/17/23 50 mg capsule escitalopram oxalate 20 mg tablet 20 mg PO HS 08/15/23 09/17/23 gabapentin 600 mg tablet 600 mg PO UD 08/15/23 09/17/23 phentermine 37.5 mg tablet 37.5 mg PO QAM 08/15/23 09/17/23 tamsulosin 0.4 mg capsule (Flomax) 0.4 mg PO QAM 08/15/23 09/17/23 Previous Rx's Medication Instructions Recorded naloxone 4 mg/actuation nasal spray 4 mg intranasal ONCE PRN opioid 12/04/19 overdose #2 ea meperidine 50 mg/5 mL oral solution 100 mg (10 mL) PO TID PRN 04/18/23 migraines #250 mL promethazine 25 mg tablet 25 mg PO BID PRN nausea and 04/26/23 vomiting 30 days #60 tabs carisoprodol 350 mg tablet (Soma) 350 mg PO QID PRN Muscle Spasm #90 06/30/23 tabs ondansetron 4 mg disintegrating 4 mg PO Q8H PRN nausea and 08/05/23 tablet vomiting #20 tabs oxybutynin chloride 5 mg tablet 5 mg PO BID PRN bladder spasms #20 08/12/23 tabs alprazolam 0.5 mg tablet 0.5 mg PO UD PRN anxiety #60 tabs 08/29/23 oxycodone-acetaminophen 10 mg-325 1 tab PO Q6H PRN pain #75 tabs 08/30/23 mg tablet Results & Data (ED) Vital Signs Vital Signs - 24 hr 09/17/23 06:11 09/17/23 06:11 09/17/23 07:20 Temperature 36.5 C 36.5 C Temperature Source Oral Oral Pulse Rate 91 H 76 Pulse Rate [Finger] 91 H Pulse Rhythm Regular Pulse Rhythm [Finger] Regular Respiratory Rate 18 18 16 Respiratory Effort / Characteristics Non-Labored Non-Labored Respiratory Depth Normal Normal Respiratory Pattern Regular Regular Blood Pressure 130/83 Blood Pressure [Right Arm] 130/83 Blood Pressure Mean 98 Blood Pressure Mean [Right Arm] 98 Pulse Oximetry 97 97 95 Oxygen Delivery Method Room Air Room Air Room Air Sepsis Recent Fever Within 48 Hours No Sepsis New/Unexplained Change in Mental Status No Sepsis Action Taken by Nursing No Action Required 09/17/23 07:20 09/17/23 07:30 09/17/23 08:32 Temperature Temperature Source Pulse Rate 77 Pulse Rate [Finger] 74 78 Pulse Rhythm Pulse Rhythm [Finger] Respiratory Rate 19 22 Respiratory Effort / Characteristics Non-Labored Non-Labored Respiratory Depth Normal Normal Respiratory Pattern Blood Pressure Blood Pressure [Right Arm] 130/87 137/88 Blood Pressure Mean Blood Pressure Mean [Right Arm] 101 104 Pulse Oximetry 93 97 Oxygen Delivery Method Room Air Room Air Sepsis Recent Fever Within 48 Hours Sepsis New/Unexplained Change in Mental Status Sepsis Action Taken by Usp Medications Current Medication List: was personally reviewed by me Laboratory Data Attestation: I reviewed the patient's lab results. 09/17/23 06:28 09/17/23 06:28 Lab Results 09/17/23 09/17/23 09/17/23 Range/Units 06:28 08:10 09:15 WBC 7.99 (4.8-10.8) K/ul RBC 4.26 (4.20-5.40) M/uL Hgb 13.7 (12.0-16.0) g/dl Hct 42.0 (37.0-47.0) % MCV 98.6 (80.0-100.0) fL MCH 32.2 (25.0-34.0) pg MCHC 32.6 (32.0-36.0) g/dL RDW Std Deviation 43.6 (36.4-46.3) fL RDW Coeff of [place] 12.0 (11.5-14.5) % Plt Count 239 (130-400) K/uL MPV 9.3 L (9.4-12.4) fL Immature Gran % (Auto) 0.4 % Neut % (Auto) 84.3 % Lymph % (Auto) 9.8 % [place] % (Auto) 4.3 % Eos % (Auto) 0.8 % Baso % (Auto) 0.4 % Neut # (Auto) 6.75 H (1.40-6.50) K/uL Lymph # (Auto) 0.78 L (1.20-3.40) K/uL [place] # (Auto) 0.34 (0.11-0.59) K/uL Eos # (Auto) 0.06 (0.00-0.50) K/uL Baso # (Auto) 0.03 (0.00-0.20) K/uL Immature Gran # (Auto) 0.03 (0.01-0.20) K/uL APTT 27 (21-31) Seconds PTT Ratio 1.0 Sodium 137 (136-145) mmol/L Potassium 4.2 (3.5-5.1) mmol/L Chloride 102 (98-107) mmol/L Carbon Dioxide 30 (21-32) mmol/L Anion Gap 5 (3-11) BUN 17 (6-23) mg/dl Creatinine 0.82 (0.6-1.2) mg/dl Est Cr Clr Drug Dosing 78.5 ml/min Est GFR ( Amer) 94.7 ml/min Est GFR (Non-Af Amer) 81.7 ml/min BUN/Creatinine Ratio 20.7 H (10-20) Glucose 58 L (70-99(Fasting)) mg/dl Calcium 9.9 (8.6-10.3) mg/dl Total Bilirubin 0.3 (0.2-1.0) mg/dl AST 17 (13-39) U/L ALT 14 (7-52) U/L Alkaline Phosphatase 95 (34-104) U/L Total Protein 6.8 (6.0-8.3) gm/dl Albumin 4.4 (3.4-5.0) gm/dl Globulin 2.4 L (2.5-4.0) gm/dl Albumin/Globulin Ratio 1.8 (0.9-2) Lipase 21 (11-82) U/L Urine Color Yellow Urine Appearance Clear (Clear) Urine pH 5.5 (4.5-7.5) Ur Specific [place] 1.013 (1.000-1.030) Urine Protein Negative (Negative) Urine Glucose (UA) Negative (Negative) Urine Ketones Negative (Negative) Urine Blood Negative (Negative) Urine Nitrite Negative (Negative) Urine Bilirubin Negative (Negative) Urine Urobilinogen Negative (Negative) Ur Leukocyte Esterase Negative (Negative) Administered Medications Heparin Sodium/Dextrose (Heparin Sodium/Dextrose) 25,000 units in 500 mls @ 22 mls/hr IV .[id number] [facility]; Protocol Stop: 10/17/23 09:29 Last Admin: 09/17/23 13:25 Dose: 1,100 units/hr, 22 mls/hr Documented By: LORRAINE Co-signed By: CAM Discontinued Medications Sodium Chloride (Nss) 1,000 mls @ 999 mls/hr IV .[id number] STA Stop: 09/17/23 07:58 Last Infusion: 09/17/23 08:26 Dose: Infused Documented By: Admin: 09/17/23 07:17 Dose: 999 mls/hr Documented By: KEEGAN Ioversol (Optiray 320 100ml) 94 ml IV ONCE ONE Stop: 09/17/23 08:13 Last Admin: 09/17/23 08:12 Dose: 94 ml Documented By: YAMILKA Ketorolac Tromethamine (Ketorolac Tromethamine 15 Mg/Ml Vial) 10 mg IV NOW ONE Stop: 09/17/23 08:27 Last Admin: 09/17/23 08:30 Dose: 10 mg Documented By: KEEGAN Ondansetron HCl (Ondansetron Inj 2 Mg/Ml 2 Ml Vial) 4 mg IV NOW STA Stop: 09/17/23 06:59 Last Admin: 09/17/23 07:17 Dose: 4 mg Documented By: KEEGAN Imaging Data Radiologist's Impression: Abdomen/Pelvis CT 09/17/23 06:58 CT abd pelvis IV con only CLINICAL HISTORY: h/o obstructing kidney stones TECHNIQUE: Helical axial images of the abdomen and pelvis were obtained and displayed. Automated dose lowering techniques and/or adjustment according to patient size were utilized for this exam. This exam was performed with intravenous contrast. CT DOSE: 1042.83 mGy.cm COMPARISON: Comparison is made to CT abdomen pelvis 07/29/2023 FINDINGS: Lower chest: Bibasilar atelectasis versus scarring is seen. Liver: Hepatic cysts are seen. Gallbladder and biliary tree: No calcified gallstones. Normal caliber wall. No intra- or extrahepatic biliary ductal dilation. Pancreas: Unremarkable, no focal lesions. Spleen: Splenule is incidentally noted. Adrenals: Unremarkable. Kidneys and ureters: Bilateral nonobstructive stones are seen. There is prominence of the bilateral collecting systems without avery hydronephrosis or obstructive stone. Wedge-shaped hypodensities are seen in the right kidney with some lobulation Bladder: Unremarkable. Reproductive organs: Vaginal pessary is noted. Bowel: Nonspecific thickening of the splenic flexure and descending colon. Lymph nodes Retroperitoneal: Unremarkable. Pelvic: Unremarkable. Mesenteric: Unremarkable. Peritoneum: Normal. Vessels: Unremarkable. Abdominal wall: A fat-containing umbilical hernia is seen. Bones: Degenerative changes in the visualized spine. IMPRESSION: 1. Thickening of the descending colon and splenic flexure may represent a nonspecific colitis, possibly an ischemic colitis. 2. Nonobstructive stones are seen. Interval removal of previously noted ureteral stents. 3. Wedge-shaped hypodensities in the right kidney are nonspecific but may represent renal infarcts versus less likely pyelonephritis. ACT 112: Negative or not required by law. Electronically signed by: Doron Azevedo M.D. 09/17/2023 8:40 AM Renal Artery Duplex 09/17/23 09:16 US duplex renal artery, US renal/blad retro comp CLINICAL HISTORY: eval for blood flow renal infarcts TECHNIQUE: Real-time grayscale and color and spectral Doppler ultrasound imaging of the kidneys and bladder was performed. Comparison: Comparison is made to CT abdomen pelvis 09/17/2023 FINDINGS: Right kidney measures 9.9 cm. Left kidney measures 10.7 cm. RIGHT: The right kidney is normal in size, contour, cortical thickness, and echogenicity. No hydronephrosis is identified. Nonobstructive stones are seen. Spectral analysis: Intrarenal resistive indices are within normal limits. Waveforms are normal in appearance.. Renal artery velocities and waveforms are normal. Renal vein patent. LEFT: The left kidney is normal in size, contour, cortical thickness and echogenicity. No hydronephrosis is identified. Nonobstructive nephrolithiasis is seen. Spectral analysis: Intrarenal resistive indices are within normal limits. Waveforms are normal in appearance. Renal artery velocities and waveforms are normal. Renal vein patent. Abdominal aorta: Patent. Peak systolic velocity 105 cm/s. Bladder: Normal. Bilateral ureteral jets not visualized. Reference ranges: Normal main renal artery peak systolic velocity less than 180 cm/s. Ratio of renal artery PSV to aortic PSV less than 3.5 equates to normal or less than 60% stenosis. Only one of the two criteria listed needs to be met for diagnosis. Arcuate resistive indices about 0.8 are elevated. IMPRESSION: Nonobstructive stones. No evidence of renal artery stenosis. ACT 112: Negative or not required by law. Electronically signed by: Doron Azevedo M.D. 09/17/2023 12:38 PM Renal Ultrasound 09/17/23 09:16 US duplex renal artery, US renal/blad retro comp CLINICAL HISTORY: eval for blood flow renal infarcts TECHNIQUE: Real-time grayscale and color and spectral Doppler ultrasound imaging of the kidneys and bladder was performed. Comparison: Comparison is made to CT abdomen pelvis 09/17/2023 FINDINGS: Right kidney measures 9.9 cm. Left kidney measures 10.7 cm. RIGHT: The right kidney is normal in size, contour, cortical thickness, and echogenicity. No hydronephrosis is identified. Nonobstructive stones are seen. Spectral analysis: Intrarenal resistive indices are within normal limits. Waveforms are normal in appearance.. Renal artery velocities and waveforms are normal. Renal vein patent. LEFT: The left kidney is normal in size, contour, cortical thickness and echogenicity. No hydronephrosis is identified. Nonobstructive nephrolithiasis is seen. Spectral analysis: Intrarenal resistive indices are within normal limits. Waveforms are normal in appearance. Renal artery velocities and waveforms are normal. Renal vein patent. Abdominal aorta: Patent. Peak systolic velocity 105 cm/s. Bladder: Normal. Bilateral ureteral jets not visualized. Reference ranges: Normal main renal artery peak systolic velocity less than 180 cm/s. Ratio of renal artery PSV to aortic PSV less than 3.5 equates to normal or less than 60% stenosis. Only one of the two criteria listed needs to be met for diagnosis. Arcuate resistive indices about 0.8 are elevated. IMPRESSION: Nonobstructive stones. No evidence of renal artery stenosis. ACT 112: Negative or not required by law. Electronically signed by: Doron Azevedo M.D. 09/17/2023 12:38 PM Discharge Plan Visit Data Chief Complaint: Abdominal Pain ED Provider: Felix Bartholomew Discharge Problem: Abnormal CT scan, Nausea, Abdominal pain Patient Disposition: Admitted As Inpatient Discharge Instructions Interventions: ED Discharge Assessment Last Done: 09/17/23 10:27 Discharge Problem: Abdominal pain Qualifiers: Abdominal location: unspecified location Qualified Code(s): R10.9 - Unspecified abdominal pain
[2023-09-17 07:17] LABS: Basophils # (auto) 0.03 K/uL (0.00-0.20); Basophils % (auto) 0.4 %; Eosinophils # (auto) 0.06 K/uL (0.00-0.50); Eosinophils % (auto) 0.8 %; Hemoglobin 13.7 g/dl (12.0-16.0); Immature Granulocytes # (auto) 0.03 K/uL (0.01-0.20); Immature Granulocytes % (auto) 0.4 %; Lymphocytes # (auto) 0.78 K/uL (1.20-3.40); Lymphocytes % (auto) 9.8 %; Mean Corpuscular Hemoglobin 32.2 pg (25.0-34.0); Mean Corpuscular Hgb Conc 32.6 g/dL (32.0-36.0); Mean Corpuscular Volume 98.6 fL (80.0-100.0); Mean Platelet Volume 9.3 fL (9.4-12.4); Monocytes # (auto) 0.34 K/uL (0.11-0.59); Monocytes % (auto) 4.3 %; Neutrophils # (auto) 6.75 K/uL (1.40-6.50); Neutrophils % (auto) 84.3 %; Platelet Count 239 K/uL (130-400); RDW Standard Deviation 43.6 fL (36.4-46.3); Red Blood Count 4.26 M/uL (4.20-5.40); White Blood Count 7.99 K/ul (4.8-10.8)
[2023-09-17] MEDS: SODIUM CHLORIDE 0.9% 1,000 ML IV STA (07:17)
[2023-09-17] MEDS: ONDANSETRON INJ 2 MG/ML 2 ML VIAL IV STA (07:17)
[2023-09-17 07:37] LABS: Albumin Globulin Ratio 1.8 (0.9-2); Albumin Level 4.4 gm/dl (3.4-5.0); BUN Creatinine Ratio 20.7 (10-20); Bilirubin,Total 0.3 mg/dl (0.2-1.0); Calcium 9.9 mg/dl (8.6-10.3); Creatinine Clr Calc Pharmacy 78.5 ml/min; Est GFR (African American) 94.7 ml/min; Est GFR (Non-African American) 81.7 ml/min; Globulin 2.4 gm/dl (2.5-4.0); Potassium 4.2 mmol/L (3.5-5.1); Total Protein 6.8 gm/dl (6.0-8.3)
[2023-09-17] MEDS: OPTIRAY 320 100ml IV ONE (08:12)
[2023-09-17] MEDS: KETOROLAC TROMETHAMINE 15 MG/ML VIAL IV ONE (08:30)
--- NOTE | 2023-09-17 08:41 | CT Scan Report ---
CT abd pelvis IV con only CLINICAL HISTORY: h/o obstructing kidney stones TECHNIQUE: Helical axial images of the abdomen and pelvis were obtained and displayed. Automated dose lowering techniques and/or adjustment according to patient size were utilized for this exam. This e xam was performed with intravenous contrast. CT DOSE: 1042.83 mGy.cm COMPARISON: Comparison is made to CT abdomen pelvis 07/29/2023 FINDINGS: Lower chest: Bibasilar atelectasis versus scarring is seen. Liver: Hepatic cysts are seen. Gallbladder and biliary tree: No calcified gallstones. Normal caliber wall. No intra- or extrahepatic biliary ductal dilation. Pancreas: Unremarkable, no focal lesions. Spleen: Splenule is incidentally noted. Adrenals: Unremarkable. Kidneys and ureters: Bilateral nonobstructive stones are seen. There is prominence of the bilateral c ollecting systems without avery hydronephrosis or obstructive stone. Wedge-shaped hypodensities are s een in the right kidney with some lobulation Bladder: Unremarkable. Reproductive organs: Vaginal pessary is noted. Bowel: Nonspecific thickening of the splenic flexure and descending colon. Lymph nodes Retroperitoneal: Unremarkable. Pelvic: Unremarkable. Mesenteric: Unremarkable. Peritoneum: Normal. Vessels: Unremarkable. Abdominal wall: A fat-containing umbilical hernia is seen. Bones: Degenerative changes in the visualized spine. IMPRESSION: 1. Thickening of the descending colon and splenic flexure may represent a nonspecific colitis, possi amy an ischemic colitis. 2. Nonobstructive stones are seen. Interval removal of previously noted ureteral stents. 3. Wedge-shaped hypodensities in the right kidney are nonspecific but may represent renal infarcts v ersus less likely pyelonephritis. ACT 112: Negative or not required by law. Electronically signed by: Doron Azevedo M.D. 09/17/2023 8:40 AM
[2023-09-17 08:44] LABS: Appearance Urine Clear (Clear); Bilirubin Urine Negative (Negative); Blood Urine Negative (Negative); Color Urine Yellow; Glucose Urine UA Negative (Negative); Ketones Urine Negative (Negative); Leukocyte Esterase Urine Negative (Negative); Nitrite Urine Negative (Negative); Protein Urine Negative (Negative); Specific Gravity Urine 1.013 (1.000-1.030); Urobilinogen Urine Negative (Negative); pH Urine 5.5 (4.5-7.5)
[2023-09-17] MEDS ORDERED: Heparin IV Adult Wt-Based Standard *NO* INITIAL Bolus Protocol IV STA (09:11)
--- NOTE | 2023-09-17 09:59 | History & Physical Report ---
Date of Service September 17, 2023 Assessment & Plan (1) Abnormal CT scan: Plan: Abnormal CT scan of abdomen concerning for right renal infarction vs. pyelonephritis and non specific colitis - Based on history - there is family history of hypercoagulable status with Factor V Leiden- likely cause at this time - Her urine is without evidence of infections as well as she is without leukocytosis as well as no documented fever at this time; however she was just previously treated for right sided stones and possible pyelonephritis - Discussed with Urology in regards to recent treatment and pyelo r/o but as above- symptoms likely not consistent- appreciate urology recommendations. - Will obtain renal ultrasound complete bilateral with Doppler - ECHO with bubble study to evaluate for other cause - Hypercoagulable panel sent - At time being will place on anticoagulation in for of heparin infusion until more information becomes available (2) Colitis: Plan: Descending colon thickening interpreted on CT scan of the abdomen and interpreted as possible ischemic colitis - Hemodynamically stable at this time and is without pain, rigidity, or gaurding - She is for the most part asymptomatic with this and is without diarrhea or abdominal pain following eating - Will currently follow abdominal exams and symptoms as above - surgical evaluation of acute worsening will be undertaken - consider follow up imaging 24-48 hours (3) Urinary retention: Plan: history of- continue with Flomax and oxybutynin history of pessary as well (4) GERD (gastroesophageal reflux disease): Plan: continue PPI (5) Fibromyalgia: Plan: Continue gabapentin (6) Anxiety disorder: Plan: Continue with alprazolam prn Continue with Escitalopram 20mg nightly History of Present Illness Chief Complaint: abdominal pain Primary Care Provider: SKYLER Redding 53 YOF with medical history of: Migraines, renal stones, anxiety, recurrent UTI, HTN, Asthma, Fibromyalgia, GERD, HLD, DJD. Presents to the EMD for complaints of abdominal pain, with concerns that this is how she feels when she is septic. Patient was previously admitted on 07/26/21 for sepsis from renal stones that was treated with with cystoscopy and right referral stent placed on 07/26/23 and 08/19/23 with laser destruction and extraction of right stone and stent removal. The patient comes tot he EMD today because she was woken up in the morning for abdominal pain. The patient is very difficult to re-direct and obtain information for history and physical secondary to tangental speech and failure to remain on topic at hand. The pain was located in her abdomen right side > left side but did occur on both, it was sharp and stabbing in nature that waxes and wanes. She is unable to tell what makes it better or what makes it worse, it also occurs with bilateral warming sensation that occurs in her abdomen and then is followed by cold sweats. She also reports frequent nausea with vomiting that has been consistent since leaving the hospital. She reports normal bowel movements as well being able to eat regular meals without being followed by vomiting. Upon further questioning patient reports that her father has Factor V Leiden disease and "blows up with clots", and she reports that she passed this on to her daughter and she has Factor V Leiden disease, however when patient asked if she has ever been tested, she states "no because I have never had a blood clot." Patient was informed of her findings of possibility of renal infarctions on her CT scan. We discussed that treatment is centered around finding cause to include hypercoagulable workup, evaluating renal arteries and blood flow, arrhythmias, and echocardiogram to evaluate for PFO, and placing on anticoagulation in form of heparin infusion at this time. Patient continued to be difficult to re-direct and required continued explanation of the above treatment plans. Discussed that it would take time for the hypercoagulable panel to return. The patient remains difficult to discuss plans with secondary to her fragmented thoughts as well as tangental topics that for the most part are inconsistent for what she is being admitted for. CODE: FULL Allergies Allergy/AdvReac Type Severity Reaction Status Date / Time butorphanol Allergy Severe Hypertensio Verified 08/19/23 10:37 n amitriptyline Allergy Unknown . Verified 08/19/23 10:37 clarithromycin Allergy Unknown Gastrointestinal Verified 08/19/23 10:37 Upset Sulfa (Sulfonamide Allergy Unknown . Verified 08/19/23 10:37 Antibiotics) trimethobenzamide Allergy Unknown Rash Verified 08/19/23 10:37 duloxetine [From Cymbalta] Allergy Migraine Verified 08/19/23 10:37 rizatriptan [From Maxalt] Allergy Chest Verified 08/19/23 10:37 tightness nitrofurantoin AdvReac Mild GI upset Verified 08/19/23 10:37 [From Macrobid] and abdominal pain Home Medications Medication Instructions Recorded Confirmed Type naloxone 4 mg/actuation nasal spray 4 mg intranasal ONCE PRN opioid 12/04/19 Rx overdose #2 ea acetaminophen 500 mg tablet 0 mg PO QAM PRN Pain 03/31/20 09/17/23 History (Tylenol Extra Strength) meperidine 50 mg/5 mL oral solution 100 mg (10 mL) PO TID PRN 04/18/23 09/17/23 Rx migraines #250 mL sennosides 25 mg tablet 0 mg PO HS 04/20/23 09/17/23 History sennosides 8.6 mg-docusate sodium 0 tab-cap PO HS 04/20/23 09/17/23 History 50 mg capsule promethazine 25 mg tablet 25 mg PO BID PRN nausea and 04/26/23 09/17/23 Rx vomiting 30 days #60 tabs carisoprodol 350 mg tablet (Soma) 350 mg PO QID PRN Muscle Spasm #90 06/30/23 09/17/23 Rx tabs ondansetron 4 mg disintegrating 4 mg PO Q8H PRN nausea and 08/05/23 09/17/23 Rx tablet vomiting #20 tabs oxybutynin chloride 5 mg tablet 5 mg PO BID PRN bladder spasms #20 08/12/23 09/17/23 Rx tabs escitalopram oxalate 20 mg tablet 20 mg PO HS 08/15/23 09/17/23 History gabapentin 600 mg tablet 600 mg PO UD 08/15/23 09/17/23 History phentermine 37.5 mg tablet 37.5 mg PO QAM 08/15/23 09/17/23 History tamsulosin 0.4 mg capsule (Flomax) 0.4 mg PO QAM 08/15/23 09/17/23 History alprazolam 0.5 mg tablet 0.5 mg PO UD PRN anxiety #60 tabs 08/29/23 09/17/23 Rx oxycodone-acetaminophen 10 mg-325 1 tab PO Q6H PRN pain #75 tabs 08/30/23 09/17/23 Rx mg tablet Past Med/Surg History Medical History Hx of sepsis 07/2023, admitted to [facility]>"feeling well now" (discharged on Augmentin) Kidney stones Hx of migraines History of anesthesia reaction "sat up and started talking during her last colonoscopy 10 years ago" Anxiety Presence of pessary History of COVID-19 2021, mild symptoms, no current symptoms Prolapse of female pelvic organs Recurrent UTI NO CURRENT ISSUES HTN (hypertension) Asthma (11/02/12) no inhalers-"only happens with a panic attack" Cervical radiculopathy at C5 Fibromyalgia GERD (gastroesophageal reflux disease) Hyperlipidemia Spinal stenosis Degenerative disc disease Sciatica Herniated disc "numerous" Surgical History S/P cystoscopy with ureteral stent placement S/P endometrial ablation tubal done simultaneously per records History of surgery denervation of various spinal nerves. S/P epidural steroid injection Status post total hip replacement, right 2019- due to avascular necrosis History of Achilles tendon repair RIGHT History of surgery D&E History of tonsillectomy and adenoidectomy History of bilateral breast reduction surgery History of esophagogastroduodenoscopy (EGD) History of colonoscopy History of hemorrhoidectomy Family History Father Prostate cancer Bladder cancer Clotting disorder Hypertension Mother Lung cancer Denies family history of Ovarian cancer Diabetes Myocardial infarction Breast cancer Colorectal cancer Uterine cancer Social History Smoking Status: Current every day smoker Tobacco Type: E-cigarettes / Vaping Age Started Using Tobacco: 12; Cigarettes Per Day: vapes daily; has a rare cigarette; Second Hand Exposure: Yes (hx father smoked); Do You Dip or Chew Tobacco: No; Hx Alcohol Use: Yes Alcohol type: wine Hx Substance Use: Yes Last Used Substance Other:: occasionally smokes [facility]tr[employer] medical marijuana-08/02/23 Substance Use Type Other:: advised Preferred Language: Malawian Communication Ability: Effective 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 Beliefs That Will Affect Care: None marital status: Legally Current Living Situation: Family current occupational status: unemployed How many Children do You have: 3 Feels Safe at Home: Yes Childhood Exposure to Second-Hand Smoke: Yes Diet: regular caffeine: Yes Dental Care, Regularly: No Physical Activity Frequency: Daily Seatbelt Use: always Sunscreen Use: Yes Assistive Devices: Glasses Review of Systems Review of Systems: REVIEW OF SYSTEMS: Constitutional: + fever, sweats or chills Eyes: No diplopia, no worsening or blurred vision ENT: normal hearing, no trouble swallowing Respiratory: No cough, sputum, dyspnea at rest or on exertion Cardiovascular: No chest pain, tightness or palpitations Abdomen: + pain, nausea, vomiting, diarrhea and constipation Musculoskeletal: No joint pain, calf pain, swelling Neurologic: No weakness, numbness/tingling, or balance problems Psychiatric: + anxiety or depression, chronic pain Skin: No rash or itch Physical Exam Physical Exam: PHYSICAL EXAM: General: awake, alert, fatigued appearing Head: Normocephalic, atraumatic ENT: PERRLA, EOMI, Neuro: AAO x 3, speech clear and appropriate but very tangental and at most times irrelevant to topic at hand, strength intact bilaterally 5/5, sensation intact and equal all extremities and dermatomes, no pronator drift Chest: equal rise and fall of the chest, no accessory muscle use, no heaves or thrills, Clear to auscultation, on room air, Cardiac: Regular rate and rhythm, telemetry reviewed- NSR no ectopy, skin warm dry, cap refill <3 seconds, peripheral pulses +2 no JVD, no murmur, no edema GI: NABS x 4 quadrants, soft, pain with deep palpation to right side : Spontaneously voiding, no pain, no CVA tenderness, Extremities: Normal inspection, no peripheral edema or erythema, calfs nontender to palpation Psych: Normal mood and affect Skin: no rash or erythema Results & Data Results & Data Vital Signs (Past 12 Hours) Vital Signs Temp Pulse Pulse Resp BP BP Pulse Ox 09/17/23 08:32 78 22 137/88 97 09/17/23 07:30 77 09/17/23 07:20 74 19 130/87 93 09/17/23 07:20 76 16 95 09/17/23 06:11 36.5 C 91 H 18 130/83 97 09/17/23 06:11 36.5 C 91 H 18 130/83 97 O2 Del Method 09/17/23 08:32 Room Air 09/17/23 07:30 09/17/23 07:20 Room Air 09/17/23 07:20 Room Air 09/17/23 06:11 Room Air 09/17/23 06:11 Room Air Laboratory Results Abnormal lab results 09/17/23 Range/Units 06:28 MPV 9.3 L (9.4-12.4) fL Neut # (Auto) 6.75 H (1.40-6.50) K/uL Lymph # (Auto) 0.78 L (1.20-3.40) K/uL BUN/Creatinine Ratio 20.7 H (10-20) Glucose 58 L (70-99(Fasting)) mg/dl Globulin 2.4 L (2.5-4.0) gm/dl Diagnostic Findings Abdomen/Pelvis CT 09/17/23 06:58 CT abd pelvis IV con only CLINICAL HISTORY: h/o obstructing kidney stones TECHNIQUE: Helical axial images of the abdomen and pelvis were obtained and displayed. Automated dose lowering techniques and/or adjustment according to patient size were utilized for this exam. This exam was performed with intravenous contrast. CT DOSE: 1042.83 mGy.cm COMPARISON: Comparison is made to CT abdomen pelvis 07/29/2023 FINDINGS: Lower chest: Bibasilar atelectasis versus scarring is seen. Liver: Hepatic cysts are seen. Gallbladder and biliary tree: No calcified gallstones. Normal caliber wall. No intra- or extrahepatic biliary ductal dilation. Pancreas: Unremarkable, no focal lesions. Spleen: Splenule is incidentally noted. Adrenals: Unremarkable. Kidneys and ureters: Bilateral nonobstructive stones are seen. There is prominence of the bilateral collecting systems without avery hydronephrosis or obstructive stone. Wedge-shaped hypodensities are seen in the right kidney with some lobulation Bladder: Unremarkable. Reproductive organs: Vaginal pessary is noted. Bowel: Nonspecific thickening of the splenic flexure and descending colon. Lymph nodes Retroperitoneal: Unremarkable. Pelvic: Unremarkable. Mesenteric: Unremarkable. Peritoneum: Normal. Vessels: Unremarkable. Abdominal wall: A fat-containing umbilical hernia is seen. Bones: Degenerative changes in the visualized spine. IMPRESSION: 1. Thickening of the descending colon and splenic flexure may represent a nonspecific colitis, possibly an ischemic colitis. 2. Nonobstructive stones are seen. Interval removal of previously noted ureteral stents. 3. Wedge-shaped hypodensities in the right kidney are nonspecific but may represent renal infarcts versus less likely pyelonephritis. ACT 112: Negative or not required by law. Electronically signed by: Doron Azevedo M.D. 09/17/2023 8:40 AM Medications Administered Home Medications naloxone 4 mg/actuation nasal spray 4 mg intranasal ONCE PRN opioid overdose #2 ea 12/04/19 [Rx Confirmed 09/17/23] acetaminophen 500 mg tablet (Tylenol Extra Strength) 0 mg PO QAM PRN Pain 03/31/20 [History Confirmed 09/17/23] meperidine 50 mg/5 mL oral solution 100 mg (10 mL) PO TID PRN migraines #250 mL 04/18/23 [Rx Confirmed 09/17/23] sennosides 25 mg tablet 0 mg PO HS 04/20/23 [History Confirmed 09/17/23] sennosides 8.6 mg-docusate sodium 50 mg capsule 0 tab-cap PO HS 04/20/23 [History Confirmed 09/17/23] promethazine 25 mg tablet 25 mg PO BID PRN nausea and vomiting 30 days #60 tabs 04/26/23 [Rx Confirmed 09/17/23] carisoprodol 350 mg tablet (Soma) 350 mg PO QID PRN Muscle Spasm #90 tabs 06/30/23 [Rx Confirmed 09/17/23] ondansetron 4 mg disintegrating tablet 4 mg PO Q8H PRN nausea and vomiting #20 tabs 08/05/23 [Rx Confirmed 09/17/23] oxybutynin chloride 5 mg tablet 5 mg PO BID PRN bladder spasms #20 tabs 08/12/23 [Rx Confirmed 09/17/23] escitalopram oxalate 20 mg tablet 20 mg PO HS 08/15/23 [History Confirmed 09/17/23] gabapentin 600 mg tablet 600 mg PO UD 08/15/23 [History Confirmed 09/17/23] phentermine 37.5 mg tablet 37.5 mg PO QAM 08/15/23 [History Confirmed 09/17/23] tamsulosin 0.4 mg capsule (Flomax) 0.4 mg PO QAM 08/15/23 [History Confirmed 09/17/23] alprazolam 0.5 mg tablet 0.5 mg PO UD PRN anxiety #60 tabs 08/29/23 [Rx Confirmed 09/17/23] oxycodone-acetaminophen 10 mg-325 mg tablet 1 tab PO Q6H PRN pain #75 tabs 08/30/23 [Rx Confirmed 09/17/23] Active Medications Heparin Sodium/Dextrose (Heparin Sodium/Dextrose) 25,000 units in 500 mls @ 22 mls/hr IV .[id number] [facility]; Protocol Stop: 10/17/23 09:29 ECG Additional Comments: Normal sinus rhythm Cannot rule out Anterior infarct , age undetermined Abnormal ECG When compared with ECG of 26-JUL-2023 13:25, No significant change was found Supervising Physician Co-Signing Physician Notes The patient was seen by me. The chart was reviewed. Case discussed with SKYLER Gentile. Agree with assessment and plan PG Care Time/CCT Total # of Minutes Spent Total Time Spent with Patient: Total time spent is greater than 50% in coordination of care (as documented) at patient's floor/unit and/or counseling patient: Coding Level of Care Code 07963 INT INP/OBS CARE 3/75MIN Diagnoses Abnormal CT scan R93.89 Colitis K52.9 Urinary retention R33.9 GERD (gastroesophageal reflux disease) K21.9 Fibromyalgia M79.7 Generalized anxiety disorder F41.1 Anxiety disorder type: generalized anxiety disorder (6) Anxiety disorder Anxiety disorder type: generalized anxiety disorder Qualified Code(s): F41.1 - Generalized anxiety disorder
[2023-09-17 10:30] LABS: Partial Thromboplastin Time 27 Seconds (21-31)
--- NOTE | 2023-09-17 10:53 | Electrocardiogram Report ---
Test Reason : Blood Pressure : / mmHG Vent. Rate : 073 BPM Atrial Rate : 073 BPM P-R Int : 134 ms QRS Dur : 076 ms QT Int : 418 ms P-R-T Axes : 050 023 032 degrees QTc Int : 460 ms Normal sinus rhythm Normal ECG When compared with ECG of 26-JUL-2023 13:25, Nonspecific ST abnormality no longer present Confirmed by Armin Chiu ([id number]) on 09/17/2023 10:53:08 AM Referred By: REFERRED SELF Confirmed By:Armin Chiu
[2023-09-17] MEDS ORDERED: ACETAMINOPHEN 325 MG TAB PO PRN ×2 (10:57→12:06)
--- NOTE | 2023-09-17 11:12 | Urology Consultation ---
Date of Consultation September 17, 2023 Assessment & Plan (1) Epigastric pain: Plan 53-year-old female with a history of nephrolithiasis who is status post right ureteroscopy for stone treatment on 08/19/[address] Romero. Due to a fairly dilated ureter a stent was not left in place. She presented to the hospital today with abdominal pain. I had a long discussion with the patient about her CT scan and her symptoms She has no flank pain or CVA tenderness on exam. Her pain is epigastric in nature which typically is not kidney related Reviewed her CT scan with her. Given she is afebrile with no white count and a clean UA, do not suspect this is pyelonephritis as this is a clinical diagnosis not a diagnosis based on CT scan. She does have a family history of factor V Leiden and certainly CT could be explained by small infarcts, but regardless this is not a urologic issue and there is no urologic intervention for this Defer to primary team for epigastric pain workup and hypercoagulable workup. Defer to primary team on determining if she needs anticoagulation Urology will reschedule her outpatient follow-up but she missed this Urology to sign off Greater than 60 minutes was spent discussing with the patient about her issues and reviewing her chart History of Present Illness History of Present Illness 53-year-old female with a history of nephrolithiasis who is status post right ureteroscopy for stone treatment on 08/19/[address] Romero. Due to a fairly dilated ureter a stent was not left in place. She presented to the hospital today with abdominal pain. Afebrile with stable vitals. White blood cell count 7.9, hemoglobin 13.7, creatinine 0.82, UA was negative. She underwent a CT scan which I independently reviewed. This does show some hypodensities in the right kidney. Radiology felt that it could be pyelonephritis which would not be in keeping with her clinical picture or possible renal infarcts. She does have a history of factor V Leiden. Patient reports epigastric pain. No flank pain. Denies any issues urinating or with constipation. Allergies Allergy/AdvReac Type Severity Reaction Status Date / Time butorphanol Allergy Severe Hypertensio Verified 08/19/23 10:37 n amitriptyline Allergy Unknown . Verified 08/19/23 10:37 clarithromycin Allergy Unknown Gastrointestinal Verified 08/19/23 10:37 Upset Sulfa (Sulfonamide Allergy Unknown . Verified 08/19/23 10:37 Antibiotics) trimethobenzamide Allergy Unknown Rash Verified 08/19/23 10:37 duloxetine [From Cymbalta] Allergy Migraine Verified 08/19/23 10:37 rizatriptan [From Maxalt] Allergy Chest Verified 08/19/23 10:37 tightness nitrofurantoin AdvReac Mild GI upset Verified 08/19/23 10:37 [From Macrobid] and abdominal pain Home Medications Medication Instructions Recorded Confirmed Type naloxone 4 mg/actuation nasal spray 4 mg intranasal ONCE PRN opioid 12/04/19 09/17/23 Rx overdose #2 ea acetaminophen 500 mg tablet 0 mg PO QAM PRN Pain 03/31/20 09/17/23 History (Tylenol Extra Strength) meperidine 50 mg/5 mL oral solution 100 mg (10 mL) PO TID PRN 04/18/23 09/17/23 Rx migraines #250 mL sennosides 25 mg tablet 0 mg PO HS 04/20/23 09/17/23 History sennosides 8.6 mg-docusate sodium 0 tab-cap PO HS 04/20/23 09/17/23 History 50 mg capsule promethazine 25 mg tablet 25 mg PO BID PRN nausea and 04/26/23 09/17/23 Rx vomiting 30 days #60 tabs carisoprodol 350 mg tablet (Soma) 350 mg PO QID PRN Muscle Spasm #90 06/30/23 09/17/23 Rx tabs ondansetron 4 mg disintegrating 4 mg PO Q8H PRN nausea and 08/05/23 09/17/23 Rx tablet vomiting #20 tabs oxybutynin chloride 5 mg tablet 5 mg PO BID PRN bladder spasms #20 08/12/23 09/17/23 Rx tabs escitalopram oxalate 20 mg tablet 20 mg PO HS 08/15/23 09/17/23 History gabapentin 600 mg tablet 600 mg PO UD 08/15/23 09/17/23 History phentermine 37.5 mg tablet 37.5 mg PO QAM 08/15/23 09/17/23 History tamsulosin 0.4 mg capsule (Flomax) 0.4 mg PO QAM 08/15/23 09/17/23 History alprazolam 0.5 mg tablet 0.5 mg PO UD PRN anxiety #60 tabs 08/29/23 09/17/23 Rx oxycodone-acetaminophen 10 mg-325 1 tab PO Q6H PRN pain #75 tabs 08/30/23 09/17/23 Rx mg tablet Patient History Medical History Hx of sepsis 07/2023, admitted to [facility]>"feeling well now" (discharged on Augmentin) Kidney stones Hx of migraines History of anesthesia reaction "sat up and started talking during her last colonoscopy 10 years ago" Anxiety Presence of pessary History of COVID-2021, mild symptoms, no current symptoms Prolapse of female pelvic organs Recurrent UTI NO CURRENT ISSUES HTN (hypertension) Asthma (11/02/12) no inhalers-"only happens with a panic attack" Cervical radiculopathy at C5 Fibromyalgia GERD (gastroesophageal reflux disease) Hyperlipidemia Spinal stenosis Degenerative disc disease Sciatica Herniated disc "numerous" Surgical History S/P cystoscopy with ureteral stent placement S/P endometrial ablation tubal done simultaneously per records History of surgery denervation of various spinal nerves. S/P epidural steroid injection Status post total hip replacement, right 2019- due to avascular necrosis History of Achilles tendon repair RIGHT History of surgery D&E History of tonsillectomy and adenoidectomy History of bilateral breast reduction surgery History of esophagogastroduodenoscopy (EGD) History of colonoscopy History of hemorrhoidectomy Family History Father Prostate cancer Bladder cancer Clotting disorder Hypertension Mother Lung cancer Denies family history of Ovarian cancer Diabetes Myocardial infarction Breast cancer Colorectal cancer Uterine cancer Social History Smoking Status: Current every day smoker Tobacco Type: E-cigarettes / Vaping Age Started Using Tobacco: 12; Cigarettes Per Day: vapes daily; has a rare cigarette; Second Hand Exposure: Yes (hx father smoked); Do You Dip or Chew Tobacco: No; Hx Alcohol Use: Yes Alcohol type: wine Hx Substance Use: Yes Last Used Substance Other:: occasionally smokes [employer] medical marijuana-08/02/23 Substance Use Type Other:: advised Preferred Language: Puerto Rican Communication Ability: Effective Chlorinator Required: No Beliefs That Will Affect Care: None marital status: Legally Current Living Situation: Family current occupational status: unemployed How many Children do You have: 3 Feels Safe at Home: Yes Childhood Exposure to Second-Hand Smoke: Yes Diet: regular caffeine: Yes Dental Care, Regularly: No Physical Activity Frequency: Daily Seatbelt Use: always Sunscreen Use: Yes Assistive Devices: Glasses Review of Systems Review of Systems: 14 point review of systems negative outs melissa of what is listed above in HPI Physical Exam Physical Exam: General: Alert and oriented, no acute distress HEENT: Normocephalic, mucous membranes moist Pulmonary: Nonlabored respirations Abdomen: Nondistended. Mild epigastric tenderness. No CVA tenderness bilaterally Extremities: Moves all 4 spontaneously Neuro: No gross deficits Skin: Warm, dry, no rashes noted Results & Data Vital Signs (Past 12 Hours) Vital Signs Temp Pulse Pulse Resp BP BP Pulse Ox 09/17/23 08:32 78 22 137/88 97 09/17/23 07:30 77 09/17/23 07:20 74 19 130/87 93 09/17/23 07:20 76 16 95 09/17/23 06:11 36.5 C 91 H 18 130/83 97 09/17/23 06:11 36.5 C 91 H 18 130/83 97 O2 Del Method 09/17/23 08:32 Room Air 09/17/23 07:30 09/17/23 07:20 Room Air 09/17/23 07:20 Room Air 09/17/23 06:11 Room Air 09/17/23 06:11 Room Air PG Care Time/CCT Total # of Minutes Spent Total Time Spent with Patient: Total time spent is greater than 50% in coordination of care (as documented) at patient's floor/unit and/or counseling patient: Coding Level of Care Code 05725 OP VST EST HI 40 MIN Diagnoses Epigastric pain R10.13
[2023-09-17] MEDS ORDERED: oxyBUTYnin chloride 5 MG TAB PO PRN (12:06)
[2023-09-17] MEDS ORDERED: PROMETHAZINE HCL 25 MG TAB PO PRN (12:06)
[2023-09-17] MEDS ORDERED: ACETAMINOPHEN 500 MG TAB PO PRN (12:06)
[2023-09-17] MEDS ORDERED: ONDANSETRON 4 MG OD TAB PO PRN (12:06)
[2023-09-17] MEDS ORDERED: CARISOPRODOL 350 MG TABLET PO PRN (12:06)
--- NOTE | 2023-09-17 12:14 | XCELERA ---
[id number]}[id number]
--- NOTE | 2023-09-17 12:40 | Ultrasound Report ---
US duplex renal artery, US renal/blad retro comp CLINICAL HISTORY: eval for blood flow renal infarcts TECHNIQUE: Real-time grayscale and color and spectral Doppler ultrasound imaging of the kidneys and b ladder was performed. Comparison: Comparison is made to CT abdomen pelvis 09/17/2023 FINDINGS: Right kidney measures 9.9 cm. Left kidney measures 10.7 cm. RIGHT: The right kidney is normal in size, contour, cortical thickness, and echogenicity. No hydronephrosis is identified. Nonobstructive stones are seen. Spectral analysis: Intrarenal resistive indices are within normal limits. Waveforms are normal in appearance.. Renal art keisha velocities and waveforms are normal. Renal vein patent. LEFT: The left kidney is normal in size, contour, cortical thickness and echogenicity. No hydronephrosis i s identified. Nonobstructive nephrolithiasis is seen. Spectral analysis: Intrarenal resistive indices are within normal limits. Waveforms are normal in appearance. Renal arin ry velocities and waveforms are normal. Renal vein patent. Abdominal aorta: Patent. Peak systolic velocity 105 cm/s. Bladder: Normal. Bilateral ureteral jets not visualized. Reference ranges: Normal main renal artery peak systolic velocity less than 180 cm/s. Ratio of renal artery PSV to aort ic PSV less than 3.5 equates to normal or less than 60% stenosis. Only one of the two criteria listed needs to be met for diagnosis. Arcuate resistive indices about 0.8 are elevated. IMPRESSION: Nonobstructive stones. No evidence of renal artery stenosis. ACT 112: Negative or not required by law. Electronically signed by: Doron Azevedo M.D. 09/17/2023 12:38 PM
[2023-09-17] MEDS: HEPARIN SODIUM/DEXTROSE 25,000 UNITS/500 ML BAG IV SCH (13:25)
[2023-09-17] MEDS: GABAPENTIN 600 MG TAB PO SCH (13:44)
[2023-09-17] MEDS: ESCITALOPRAM OXALATE 20 MG TAB PO SCH (19:53)
[2023-09-17] MEDS: ONDANSETRON INJ 2 MG/ML 2 ML VIAL IV PRN (19:54)
[2023-09-17] MEDS: DOCUSATE SODIUM/SENNA 50/8.6MG TAB PO SCH (19:54)
[2023-09-17] MEDS: ALPRAZolam 0.5 MG TABLET PO PRN (20:03)
[2023-09-17 20:50] VITALS: PULSE 86; RESP 20; TEMP 98.1; O2SAT 97
[2023-09-17] MEDS ORDERED: SENNOSIDES 25 MG PO SCH (21:00)
[2023-09-18 03:33] LABS: ANTI-Xa, UFH(UnfractionatedHep 0.34 IU/ml (0.3-0.7)
[2023-09-18] MEDS: TAMSULOSIN HCL 0.4 MG CAP PO SCH (08:18)
[2023-09-18] MEDS: OPTIRAY 320 100ml IV ONE (09:17)
--- NOTE | 2023-09-18 09:36 | CT Scan Report ---
CT renal wo/w con CLINICAL HISTORY: possible renal infarcts TECHNIQUE: Helical axial images of the abdomen were obtained. Automated dose lowering techniques and/ or adjustment according to patient size were utilized for this exam. This exam was performed with in travenous contrast. CT DOSE: 1782.58 mGy.cm Comparison: Comparison is made to CT abdomen pelvis 09/17/2023 FINDINGS: Lower chest: No acute abnormality. Liver: Focal renal cysts are seen. Gallbladder and biliary tree: No calcified gallstones. Normal caliber wall. No intra- or extrahepatic biliary ductal dilation. Pancreas: Unremarkable, no focal lesions. Spleen: Splenule is incidentally noted. Adrenals: Unremarkable. Kidneys and ureters: Again noted, there are wedge-shaped hypoenhancing regions in the right kidney wi th cortical lobulation. Nonobstructive stones are seen bilaterally. Bowel: Unremarkable. Lymph nodes Retroperitoneal: Unremarkable. Mesenteric: Unremarkable. Peritoneum: Normal. Vessels: Unremarkable. Abdominal wall: A fat-containing umbilical hernia is seen. Bones: Degenerative changes in the visualized spine. IMPRESSION: 1. 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 No definite evidence of acute infarct or pyelonephritis. Nonobstructive stones are seen bilaterally. 2. Previously noted colonic wall thickening has essentially resolved. ACT 112: Negative or not required by law. Electronically signed by: Doron Azevedo M.D. 09/18/2023 9:34 AM
--- NOTE | 2023-09-18 10:05 | Discharge Summary ---
Date of Service September 18, 2023 Admission HPI Per Admitting Provider 53 YOF with medical history of: Migraines, renal stones, anxiety, recurrent UTI, HTN, Asthma, Fibromyalgia, GERD, HLD, DJD. Presents to the EMD for complaints of abdominal pain, with concerns that this is how she feels when she is septic. Patient was previously admitted on 07/26/21 for sepsis from renal stones that was treated with with cystoscopy and right referral stent placed on 07/26/23 and 08/19/23 with laser destruction and extraction of right stone and stent removal. The patient comes tot he EMD today because she was woken up in the morning for abdominal pain. The patient is very difficult to re-direct and obtain information for history and physical secondary to tangental speech and failure to remain on topic at hand. The pain was located in her abdomen right side > left side but did occur on both, it was sharp and stabbing in nature that waxes and wanes. She is unable to tell what makes it better or what makes it worse, it also occurs with bilateral warming sensation that occurs in her abdomen and then is followed by cold sweats. She also reports frequent nausea with vomiting that has been consistent since leaving the hospital. She reports normal bowel movements as well being able to eat regular meals without being followed by vomiting. Upon further questioning patient reports that her father has Factor V Leiden disease and "blows up with clots", and she reports that she passed this on to her daughter and she has Factor V Leiden disease, however when patient asked if she has ever been tested, she states "no because I have never had a blood clot." Patient was informed of her findings of possibility of renal infarctions on her CT scan. We discussed that treatment is centered around finding cause to include hypercoagulable workup, evaluating renal arteries and blood flow, arrhythmias, and echocardiogram to evaluate for PFO, and placing on anticoagulation in form of heparin infusion at this time. Patient continued to be difficult to re-direct and required continued explan ation of the above treatment plans. Discussed that it would take time for the hypercoagulable panel to return. The patient remains difficult to discuss plans with secondary to her fragmented thoughts as well as tangental topics that for the most part are inconsistent for what she is being admitted for. CODE: FULL Principal Diagnosis Malaise, possible chronic right renal infarctions Discharge Exam General-alert and oriented x3, no fever, no chills HEENT-head atraumatic and normocephalic, pupils equal and reactive to light, extraocular muscles intact Neck-no lymphadenopathy or thyromegaly, trachea midline Chest-clear to auscultation. No rales, wheezing or rhonchi Cardiac-regular rate and rhythm, normal S1 and S2 Abdomen-normal bowel sounds, nontender, no hepatosplenomegaly Extremities-no cyanosis, clubbing, or edema Neuro-cranial nerves II through XII intact, motor and sensory function within normal limits, strength symmetrical, no focal deficits Psych-normal affect, normal mood Discharge Data Allergies Allergy/AdvReac Type Severity Reaction Status Date / Time butorphanol Allergy Severe Hypertensio Verified 08/19/23 10:37 n amitriptyline Allergy Unknown . Verified 08/19/23 10:37 clarithromycin Allergy Unknown Gastrointestinal Verified 08/19/23 10:37 Upset Sulfa (Sulfonamide Allergy Unknown . Verified 08/19/23 10:37 Antibiotics) trimethobenzamide Allergy Unknown Rash Verified 08/19/23 10:37 duloxetine [From Cymbalta] Allergy Migraine Verified 08/19/23 10:37 rizatriptan [From Maxalt] Allergy Chest Verified 08/19/23 10:37 tightness nitrofurantoin AdvReac Mild GI upset Verified 08/19/23 10:37 [From Macrobid] and abdominal pain Consultations 09/17/23 09:14 ED Decision to Admit Stat 09/17/23 10:31 Consult Urology Routine Ordered Studies 09/17/23 06:58 CT abd pelvis IV con only Stat 09/17/23 09:16 US Renal Bladder [US renal/blad retro comp] Urgent US doppler renal [US duplex renal artery] Urgent 09/18/23 07:20 CT renal wo/w con Urgent Hospital Course (1) Abnormal CT scan: Dedicated renal CT scan completed this morning, September 17. There is a question of possible chronic renal infarctions but nothing acute. Renal arterial duplex scans negative. Cardiac echo reveals no shunt and no thrombus formation. Heparin drip has been discontinued. Hypercoagulable profile remains pending. Will not start Eliquis at this time. (2) Colitis: Incidental finding on CT scan. She has no symptoms. This has been ruled out (3) Urinary retention: Occurred in the past. Nothing acute. (4) GERD (gastroesophageal reflux disease): Stable. Continue PPI Plan Home todaySeptember 17 Total Time Total Time Spent Total Time Spent (In Minutes): 45-minute Discharge Plan Discharge Items Patient Disposition: Home - Self-Care Reason For Visit: ABDOMINAL PAIN Discharge Diagnosis: Malaise, possible chronic right renal infarctions Activity: Resume your previous activity Non-emergency contact: Primary Care Provider Call non-emergency contact if: you have any medication questions Follow-up/Referrals: Ladi Andrea CRNP [Primary Care Provider] - Diet: Regular Addtl Attending Provider Instructions: All medications remain the same Pending Studies at Discharge: No Stand-Alone Forms: My [employer], Smoking Cessation Medications and DC Order Prescriptions: Continued naloxone 4 mg/actuation spray,non-aerosol 4 mg INTNAS ONCE PRN (Reason: opioid overdose) Qty: 2 3RF Rx Instructions: spray 1 dose into ONE nostril; alternate nostrils w each dose until help arrives meperidine 50 mg/5 mL solution 100 mg PO TID PRN (Reason: migraines) Qty: 250 0RF Patient Comments: will begin after colonoscopy Rx Instructions: 100 mg PO every 8 hours as needed PRN; pt will hold oxycodone carisoprodol [Soma] 350 mg tablet 350 mg PO QID PRN (Reason: Muscle Spasm) Qty: 90 1RF alprazolam 0.5 mg tablet 0.5 mg PO UD PRN (Reason: anxiety) Qty: 60 0RF Rx Instructions: 0.5 mg PO BID-TID PRN oxycodone-acetaminophen 10-325 mg tablet 1 tab PO Q6H PRN (Reason: pain) Qty: 75 0RF oxybutynin chloride 5 mg tablet 5 mg PO BID PRN (Reason: bladder spasms) Qty: 20 1RF promethazine 25 mg tablet 25 mg PO BID PRN (Reason: nausea and vomiting) 30 Days Qty: 60 3RF ondansetron 4 mg tablet,disintegrating 4 mg PO Q8H PRN (Reason: nausea and vomiting) Qty: 20 2RF acetaminophen [Tylenol Extra Strength] 500 mg tablet 0 mg PO QAM PRN (Reason: Pain) Rx Instructions: Unable to verify OTC medications with patient at this date/time. sennosides 25 mg Tablet 0 mg PO HS Patient Comments: alternates with the senna-docusate sodium; uses at least 5-7 days per week Rx Instructions: Unable to verify OTC medications with patient at this date/time. sennosides-docusate sodium 8.6-50 mg Capsule 0 tab-cap PO HS Patient Comments: alternates with sennosides, at least 5-7 days per week Rx Instructions: Unable to verify OTC medications with patient at this date/time. gabapentin 600 mg tablet 600 mg PO UD Rx Instructions: 600 mg orally BID- TID; phentermine 37.5 mg tablet 37.5 mg PO QAM tamsulosin [Flomax] 0.4 mg capsule 0.4 mg PO QAM escitalopram oxalate 20 mg tablet 20 mg PO HS Discharge Orders: Discharge Order (Routine); Ordered 09/18/23 Ordered By: Gumaro Null Admission Data Admit Date/Time: 09/17/23 10:56 Attending Provider: Gumaro Null Admit Provider: Gumaro Null Primary Care Provider: Ladi Andrea Other Providers: Gumaro Null; Maksim Fitzpatrick Coding Level of Care Code 15084 INP/OBS DISCH >[address] scan R93.89 Colitis K52.9 Urinary retention R33.9 GERD (gastroesophageal reflux disease) K21.9
[2023-09-18 11:00] VITALS: BP 135/90
[2023-09-23 00:22] LABS: Anti-Thrombin III Activity 94 % normal (80-135); PTT LA Screen 30 sec (<=40)
[2023-09-25 04:07] LABS: Factor 5 Mutation NEGATIVE
== END 2023-09-18 14:47 | disposition home or self-care (01) | DRG 700 ==
LOC: EDINP 05:58 → ED 05:58 → OBSVTOIN 09:48 → INTOOBSV 09:48 → 3E 10:27 → OBSVTOIN 10:56 → 3E 16:21
DX: K21.9 Gastro-esophageal reflux disease without esophagitis; F41.9 Anxiety disorder, unspecified; Z79.891 Long term (current) use of opiate analgesic; F17.290 Nicotine dependence, other tobacco product, uncomplicated; M79.7 Fibromyalgia; Z87.440 Personal history of urinary (tract) infections; Z88.1 Allergy status to other antibiotic agents; R33.9 Retention of urine, unspecified; N81.4 Uterovaginal prolapse, unspecified; Z86.16 Personal history of COVID-19; J45.909 Unspecified asthma, uncomplicated; Z88.2 Allergy status to sulfonamides; I10 Essential (primary) hypertension; N28.0 Ischemia and infarction of kidney; Z87.442 Personal history of urinary calculi; U07.0 Vaping-related disorder; K52.9 Noninfective gastroenteritis and colitis, unspecified; R93.89 Abnormal findings on diagnostic imaging of other specified body structures; R10.13 Epigastric pain; Z88.8 Allergy status to other drugs, medicaments and biological substances